=== PATIENT | male | born 1980 | race American Indian/Alaskan Native ===

== ENCOUNTER → 2016-07-10 | Outpatient (CLI) | payer OTHER ==
[~2016-07-10] MED LIST: CITA20TA9 PO; IBUP-1449 PO; PRED20TA PO
[2016-07-14 11:40] LABS: GLIADIN DEAMIDATED IgA AB 3 UNITS (<20); GLIADIN DEAMIDATED IgG AB 4 UNITS (<20); RETICULIN IgA AB Negative (Negative)
== END | disposition home or self-care (01) ==
LOC: C.LAB1850 10:40
PROVIDERS: ATTEND Internal Medicine
DX: R14.0 Abdominal distension (gaseous) (principal)

== ENCOUNTER 2016-07-31 19:35 | Emergency (ER) | payer OTHER ==
[~2016-07-31] VITALS: Ht 177.8 cm; Wt 87.3 kg
[~2016-07-31 19:35] MED LIST changes: -IBUP-1449 PO; -PRED20TA PO
[2016-07-31 19:46] VITALS: TEMP 36.8; Ht 177.8 cm; Wt 87.3 kg
[2016-07-31] MEDS ORDERED: DEXAMETHASONE SOD INJ 4 MG/ML VIAL IM ONE (20:15)
[2016-07-31] MEDS ORDERED: DEXAMETHASONE SOD INJ 10 MG/ML VIAL ONE (20:17)
[2016-07-31] MEDS ORDERED: IBUP-1449 PO (20:30)
[2016-07-31] MEDS ORDERED: PRED20TA PO (20:33)
--- NOTE | 2016-07-31 20:33 | EMERGENCY ROOM VISIT NOTE ---
ED Visit Note First contact with patient: 19:57 CHIEF COMPLAINT: Low back pain HISTORY OF PRESENT ILLNESS: This 35-year-old male patient presents to the emergency department ambulatory complaining of pain in the low back which began while at work today. The pain was gradual in onset, is now constant and worse with movement. The patient notes the pain as sharp and a 6/10. The patient has taken ibuprofen without relief of the pain. The patient denies any loss of control of their bowel or bladder functions. There has been no leg numbness or weakness, and no change in sensation. No nausea or vomiting or abdominal pain. No chest pain or shortness of breath. The patient has had previous episodes of similar pain. No dysuria or increased urinary frequency. The patient saw his chiropractor today, who felt that the patient likely had a "pinched nerve." REVIEW OF SYSTEMS: A review of systems was performed with positives and pertinent negatives listed in the history of present illness. All other systems were reviewed and are negative. ALLERGIES: No known drug allergies MEDICATIONS: Celexa PMH: No significant past medical history. SOCIAL HISTORY: The patient lives locally with his family. Nonsmoker. PHYSICAL EXAM: VITALS: Vitals are noted on the nurse's note and reviewed by myself. Vital signs stable. GENERAL: This is a 35-year-old male, in no acute distress, nondiaphoretic, well- developed well-nourished. SKIN: The skin was without rashes, erythema, edema, or bruising. Capillary refill less than 2 seconds. NECK: Supple without nuchal rigidity. No cervical spine tenderness. No paraspinous muscle tenderness. HEART: Regular rate and rhythm without murmurs gallops or rubs. LUNGS: Clear to auscultation bilaterally without wheezes, rales or rhonchi. ABDOMEN: Positive bowel sounds x 4. Normal tympanic percussion. Soft, nontender, without masses or organomegaly. Ndiaye sign negative. MUSCULOSKELETAL: No muscle atrophy, erythema, or edema noted of the back. There is no tenderness over the lumbar spinous processes. There is no tenderness over the paraspinous muscles. There is no tenderness over the thoracic spine or paraspinous muscles. There are no muscle spasms present. The patient is slow to move around with maximum tenderness with extension.. Negative straight leg raise test. NEURO: Patient was alert and oriented to person place and time. Normal sensation to light and sharp touch. Deep tendon reflexes 2+ in the lower extremities. Dorsalis pedis pulse 2+ bilaterally. Strength 5/5 and equal in the bilateral lower extremities. EMERGENCY DEPARTMENT COURSE: Patient was evaluated as above. He appears to have musculoskeletal back pain. There are no worrisome neurological findings to suggest cauda equina syndrome or cord compression. I did offer the patient outpatient treatment with pain medication and muscle relaxers, but he declined and states that he does not like to take medications. I did suggest a steroid and the patient was agreeable to this. He was given 10 mg Decadron IM as well as a prescriptive for prednisone. He will follow-up with his primary care provider for further evaluation of his back pain or verbal return for worsening symptoms. He verbalized understanding of my assessment and treatment plan and was discharged home in good condition. DIAGNOSIS: Lumbar strain Current/Historical Medications Scheduled Citalopram Hydrobromide (Celexa), 20 MG PO DAILY Allergies Coded Allergies: No Known Allergies (Unverified Adverse Reaction, Unknown, 08/02/04) Vital Signs Date Time Temp Pulse Resp B/P Pulse Ox O2 Delivery O2 Flow Rate FiO2 07/31/16 19:46 36.8 69 18 155/105 100 Room Air Medications Administered Medications (Trade) Dose Ordered Sig/Mil Route Start Time Stop Time Status Last Admin Dose Admin Dexamethasone Sodium Phosphate (Decadron Inj) 10 mg STK-MED ONCE .ROUTE 07/31/16 20:17 07/31/16 20:19 DC 07/31/16 20:21 10 MG Departure Information Impression Primary Impression: Strain of lumbar region Dispostion Home / Self-Care Condition GOOD Prescriptions Prednisone (Prednisone) 20 Mg Tab 0 PO DAILY, #18 TAB 3 DAILY FOR 3 DAYS, THEN 2 DAILY FOR 3 DAYS, THEN 1 DAILY FOR 3 DAYS. Prov: Sylwia Zamarripa .MARYELLEN 07/31/16 Referrals Pro,Tj aCrl M.D. (PCP) Patient Instructions [facility] Additional Instructions You have been treated in the Emergency Department for Back Pain. You have been prescribed Prednisone. This is a steroid which will help decrease your inflammation. It is best to take steroids early in the morning as PM dosing can affect your sleeping patterns. For pain control, you can use the following [id number] medicines (if >12 yo): - Regular strength (325mg/tab) Tylenol (acetaminophen) 2 tabs every 4-6 hours as needed. Do not exceed 12 tablets in a 24 hour period. Avoid taking more than 4 grams (4000 mg) of Tylenol per day. This includes any other sources of acetaminophen you may take on a regular basis. - Regular strength (200 mg/tab) Advil (ibuprofen) 1-2 tabs every 4-6 hours as needed. Do not exceed a dose of 3200 mg per day. If this is an acute injury, ice can be applied to the area of pain for the first 3 days to help decrease pain and inflammation. After the first 3 days, a heating pad can be used over the area for continued soothing relief. You should schedule a follow-up appointment in 2-3 days with your Primary Care Provider for further evaluation and treatment of your back pain. Return to the Emergency Department if your current symptoms worsen despite treatment course outlined above, or if you develop any of the following symptoms : intractable pain despite aforementioned treatment course, loss of control of your bowel or bladder, numbness or tingling in your groin, or development of a fever. Problem Qualifiers Primary Impression: Strain of lumbar region Encounter type: initial encounter Qualified Codes: S39.012A - Strain of muscle, fascia and tendon of lower back, initial encounter
[2016-07-31 20:46] VITALS: BP 129/78; PULSE 66; O2SAT 99
== END 2016-07-31 20:49 | disposition home or self-care (01) ==
LOC: C.EDB 19:36 → C.EDD 20:49
DX: S39.012A Strain of muscle, fascia and tendon of lower back, initial encounter (principal); X58.XXXA Exposure to other specified factors, initial encounter; Y92.89 Other specified places as the place of occurrence of the external cause; Y99.0 Civilian activity done for income or pay; Z79.899 Other long term (current) drug therapy

== ENCOUNTER → 2016-12-25 | Outpatient (CLI) | payer OTHER ==
[~2016-12-25] MED LIST changes: -CITA20TA9 PO; +IBUP-1449 PO; +PRED20TA PO
[2016-12-25 15:17] LABS: ESTIMATED AVERAGE GLUCOSE 114 mg/dl; HA1C FLAG Normal (Normal)
[2016-12-25 15:25] LABS: BLOOD UREA NITROGEN 11 mg/dl (7-18); BUN/CREATININE RATIO 9.8 (10-20); CALCIUM 9.5 mg/dl (8.5-10.1); CARBON DIOXIDE 28 mmol/L (21-32); CHLORIDE 106 mmol/L (98-107); CHOLESTEROL 191 mg/dl (0-200); GLUCOSE 100 mg/dl (70-99); SODIUM 140 mmol/L (136-145); URINE APPEARANCE CLEAR (CLEAR); URINE BILIRUBIN NEG (NEG); URINE COLOR YELLOW; URINE EPITHELIAL CELL AUTO 0-5 /lpf (0-5); URINE NITRITE NEG (NEG); URINE PH 6.5 (4.5-7.5); URINE SPECIFIC GRAVITY 1.019 (1.000-1.030); UROBILINOGEN NEG (NEG)
[2016-12-25 15:26] LABS: CHOLESTEROL/HDL RATIO 4.1; HDL CHOLESTEROL 47 mg/dl; LDL CHOLESTEROL CALCULATED 127 mg/dl; TRIGLYCERIDES 86 mg/dl (0-150); VERY LOW DENSITY LIPOPROT CALC 17 mg/dl
[2016-12-25 15:32] LABS: MANUAL MICROSCOPIC REQUIRED? NO; REVIEW REQ? NO
== END | disposition home or self-care (01) ==
LOC: C.LABBC 09:23
PROVIDERS: ATTEND Internal Medicine
DX: Z13.220 Encounter for screening for lipoid disorders (principal); R35.0 Frequency of micturition

== ENCOUNTER 2017-09-04 13:30 | Emergency (ER) | payer OTHER ==
[~2017-09-04] VITALS: Ht 175.3 cm; Wt 82.6 kg
[~2017-09-04 13:30] MED LIST changes: -PRED20TA PO
[2017-09-04 13:34] VITALS: TEMP 36.8; Ht 175.3 cm; Wt 82.6 kg
[2017-09-04] MEDS ORDERED: XYLOCAINE 1%/SOD BICARB 20 ML VIAL INFIL ONE ×2 (13:59→14:00)
[2017-09-04] MEDS ORDERED: DIPHTHERIA/TETANUS/PERTUSSIS 0.5 ML SYR/VIAL IM. ONE (14:00)
[2017-09-04 14:27] VITALS: BP 120/100; PULSE 75; O2SAT 98
--- NOTE | 2017-09-04 14:30 | EMERGENCY ROOM VISIT NOTE ---
ED Visit Note First contact with patient: 13:52 CHIEF COMPLAINT: Hand laceration HISTORY OF PRESENT ILLNESS: This 37-year-old male patient presents to the emergency department 45 minutes after cutting the right hand on a lid from a can. The bleeding has not stopped. Denies weakness or numbness of the hand or fingers. The patient rates the pain as minimal and 2/10. The patient denies any other injuries. The patient's Tetanus shot is not up to date. REVIEW OF SYSTEMS: A 6 system review of systems was completed with positives and pertinent negatives listed in the HPI. ALLERGIES: No known drug allergies MEDICATIONS: None PMH: Otherwise healthy SOCIAL HISTORY: Denies tobacco use, occasional EtOH PHYSICAL EXAM: Vital Signs: Reviewed Nurse's notes, vital signs stable. GENERAL : 37-year-old male, in no acute distress, well-developed, well-nourished. SKIN : There is a 2 cm long laceration on the palmar aspect of the right hand. The edges gape apart with traction. There is no foreign material in the wound and it looks clean. There is bleeding. No deep structures such as tendons, bones, or significant blood vessels are seen in the base of the wound. Normal strength and movement of the fingers and wrist. Capillary refill less than 2 seconds. Normal sensation to light and sharp touch. EMERGENCY DEPARTMENT COURSE: I examined the patient. Verbal consent was obtained to perform the procedure. Using sterile technique the wound was cleansed with Betadine. The area was sterilely draped. 3 ml of 1% buffered lidocaine was used to anesthetize the laceration on the hand. Once the patient was anesthetized, the wound was copiously irrigated under pressure with sterile saline. The wound was explored and was as described above. The laceration was repaired using 3 simple interrupted 5-0 nylon sutures with the wound edges being well approximated. The patient tolerated the procedure well. Hemostasis was achieved. The area was cleaned with sterile saline and dressed with bacitracin ointment and bandage. The patient was given Td immunization. The patient was discharged home in good condition. DIAGNOSIS: Hand laceration DISCHARGE INSTRUCTIONS & TREATMENT: Keep wound clean. It is okay to gently wash the area with soapy water. Do not submerse it in water for long periods of time such as swimming, going in hot tubs or taking baths until the sutures come out. Do not allow any crusting or dried blood to accumulate on sutures. If this occurs, use a 1:1 solution of hydrogen peroxide/water on a Q-tip to clean the wound. Use an antibiotic ointment for 3-4 days, then let wound dry. Suture removal in 14 days. Return sooner for any signs of infection (increasing redness, swelling, drainage). Ice and elevate for swelling and pain. Ibuprofen 600 mg and Tylenol 1000 mg every 6 hrs for pain. This chart was completed in part utilizing [employer] Speech Voice Recognition software. Attempts were made to minimize the grammatical errors, random word insertions, pronoun errors and incomplete sentences. Any formal questions or concerns about the content, text or information contained within the body of this dictation should be directly addressed to the provider for clarification.
== END 2017-09-04 14:32 | disposition home or self-care (01) ==
LOC: C.EDB 13:32 → C.EDD 14:32
DX: S61.411A Laceration without foreign body of right hand, initial encounter (principal); W45.8XXA Other foreign body or object entering through skin, initial encounter; F12.90 Cannabis use, unspecified, uncomplicated; Z23 Encounter for immunization

== ENCOUNTER 2024-10-21 11:17 | Inpatient (IN) ==
--- NOTE | 2024-10-21 11:39 | Emergency Department Note ---
Impression & Plan Abdominal pain, Leukocytosis, Post-operative infection ED Provider Note NAME: BING MATOS AGE: 44 SEX: M : 1980 ARRIVES VIA: Walk-In INFORMANT: Patient ED PROVIDER(S): Sánchez Granger DO CHIEF COMPLAINT: Abdominal pain HPI: Patient is a 44-year-old male who was recently admitted last Sunday to [facility] and found to have a perforated appendectomy. He was discharged this weekend. He notes he is still having pain in that right lower quadrant. He has had persistent diarrhea about 10-12 times a day. Denies any dysuria, urgency or frequency. Still has a drain in place which has been unchanged in drainage or discharge. Not on antibiotics. No cough or congestion. No other exacerbating or remitting factors. He notes this is nearly the same pain that he had when he came in for his appendix. He notes that the pain does feel a cramping pain that comes and goes. He believes it feels like it has to go the bathroom but he is having diarrhea. ADDITIONAL HISTORY OBTAINED: Per HPI Chronic Medical/Social Conditions Affecting Care: Per HPI PAST MEDICAL HISTORY:See Below PAST SURGICAL HISTORY:See Below FAMILY HISTORY:See Below SOCIAL HISTORY:See Below HOME MEDICATIONS:See Below ALLERGIES:See Below VITALS:See Below PHYSICAL EXAMINATION: GENERAL: Sitting up in bed, alert, well appearing, well nourished, no distress, non-toxic EYE EXAM: normal conjunctiva OROPHARYNX: no exudate, no erythema, lips, buccal mucosa, and tongue normal and mucous membranes are moist NECK: supple, no nuchal rigidity, no adenopathy, non-tender LUNGS: Clear to auscultation. Normal chest wall mechanics HEART: no murmurs, S1 normal and S2 normal ABDOMEN: abdomen soft, non-tender, normo-active bowel sounds, no masses, no rebound or guarding. Incision ports are clean and dry. OLVIN drain in the right lower quadrant. Serous drainage present in the tube. UPPER EXTREMITIES: upper extremities are grossly normal. LOWER EXTREMITIES: No pitting edema. NEURO EXAM: Normal sensorium, cranial nerves II-XII grossly intact, normal speech, no gross weakness of arms, no gross weakness of legs. MEDICAL DECISION MAKING: Patient is a 44-year-old male with recent ruptured/gangrenous appendicitis in [place] who had a drain placed and was discharged. Comes back in for worsening pain in his lower pelvis. He denies any fevers. IV was established and blood work was obtained. Decreased drainage from OLVIN drain. Labs show leukocytosis of 13,000. No significant anemia. BMP along with LFTs bilirubin was unremarkable. Lipase was normal. UA was clean. Patient was given IV fluids, IV Zofran and IV Zosyn. Discussed case with general surgery and they evaluated the patient admitted him for further workup following a CTA which showed the start of possible abscesses. Consults/Care Managements Discussions: Per [facility] Triage Nursing notes reviewed. Limited review of prior medical records performed Vital Signs: reviewed and remarkable for no significant abnormalities Differential diagnosis: Differential diagnoses includes but is not limited to gastritis, peptic ulcer disease, GERD, gallbladder disease, pancreatitis, small bowel obstruction, appendicitis, diverticulitis, hernia, urinary tract infection, torsion, perforation, trauma, infectious. ER treatment provided: See below Diagnostics interpreted by me include EKG and cardiac monitoring as listed below: -Cardiac Monitoring: An order was placed for continuous cardiac monitoring. The monitor shows a rate of 80 with sinus rhythm. -ECG: none -Laboratory studies:Interpreted by me as stated above in MDM and shown below. Imaging studies: Xrays: As interpreted by me: None CTs show: CT abdomen pelvis per my preliminary interpretation showed drain in right lower quadrant CT abdomen pelvis per radiology as described above Procedures: None Critical Care: None Past Med/Surg History Problem List (Updated 10/21/24 @ 17:18 by Sánchez Granger DO) Post-operative infection (Acute) Leukocytosis (Acute) Abdominal pain (Acute) Fatigue Bunion of great toe of left foot COVID-19 Medical History Prediabetes Hyperlipidemia Depression Surgical History History of wisdom tooth extraction No history of previous surgery Family History Family/Other Diabetes Denies family history of Ovarian cancer Prostate cancer Myocardial infarction Breast cancer Colorectal cancer Social History Smoking Status: Former smoker Do You Dip or Chew Tobacco: Yes; Hx Alcohol Use: Yes Hx Substance Use: No Preferred Language: Kazakh Communication Ability: Effective Visual Impairment: No Limitations Hearing Ability: Normal marital status: Current Living Situation: Family current occupational status: employed Feels Safe at Home: Yes Dental Care, Regularly: Yes Physical Activity Frequency: Daily Seatbelt Use: always Sunscreen Use: No Allergies Allergies Allergy/AdvReac Type Severity Reaction Status Date / Time No Known Allergies Allergy Unknown Unverified 10/21/24 15:30 Home Meds Home Medications Medication Instructions Recorded Confirmed diclofenac sodium 1 % topical gel 4 g topical QID PRN Pain 11/07/23 10/21/24 (Voltaren Arthritis Pain) cholecalciferol (vitamin D3) 25 25 mcg PO DAILY 10/21/24 10/21/24 mcg (1,000 unit) tablet (Vitamin D3) cinnamon bark 500 mg capsule 500 mg PO DAILY 10/21/24 10/21/24 (Cinnamon) escitalopram oxalate 10 mg tablet 10 mg PO DAILY 10/21/24 10/21/24 omega 5-ept-rzb-fish oil 900 1 cap PO DAILY 10/21/24 10/21/24 mg-1,400 mg capsule,delayed release vitamin E 268 mg (400 unit) capsule 268 mg PO DAILY 10/21/24 10/21/24 Results & Data (ED) Vital Signs Vital Signs - 24 hr 10/21/24 11:21 10/21/24 11:49 10/21/24 11:57 Temperature 36.9 C Temperature Source Temporal Artery Scan Pulse Rate 80 73 Pulse Rate [Apical] Pulse Rate from SpO2 Sensor Respiratory Rate 18 Respiratory Effort / Characteristics Non-Labored Spontaneous Respiratory Depth Normal Respiratory Pattern Regular Blood Pressure 128/84 Blood Pressure [Right Arm] Blood Pressure Mean 98 Blood Pressure Mean [Right Arm] Blood Pressure Position Sitting Pulse Oximetry 96 95 Oxygen Delivery Method Room Air Room Air Sepsis Recent Fever Within 48 Hours Yes Sepsis New/Unexplained Change in Mental Status No Sepsis Action Taken by Nursing No Action Required 10/21/24 12:21 10/21/24 12:50 10/21/24 12:51 Temperature Temperature Source Pulse Rate 75 66 Pulse Rate [Apical] Pulse Rate from SpO2 Sensor 76 65 Respiratory Rate 17 19 Respiratory Effort / Characteristics Respiratory Depth Respiratory Pattern Blood Pressure 133/85 Blood Pressure [Right Arm] Blood Pressure Mean 102 Blood Pressure Mean [Right Arm] Blood Pressure Position Pulse Oximetry 96 96 Oxygen Delivery Method Sepsis Recent Fever Within 48 Hours Sepsis New/Unexplained Change in Mental Status Sepsis Action Taken by Nursing 10/21/24 12:57 10/21/24 13:00 10/21/24 13:03 Temperature Temperature Source Pulse Rate 68 69 Pulse Rate [Apical] Pulse Rate from SpO2 Sensor 68 69 Respiratory Rate 18 19 Respiratory Effort / Characteristics Respiratory Depth Respiratory Pattern Blood Pressure 123/90 Blood Pressure [Right Arm] Blood Pressure Mean 94 Blood Pressure Mean [Right Arm] Blood Pressure Position Pulse Oximetry 98 99 Oxygen Delivery Method Sepsis Recent Fever Within 48 Hours Sepsis New/Unexplained Change in Mental Status Sepsis Action Taken by Nursing 10/21/24 13:21 10/21/24 13:30 10/21/24 13:36 Temperature Temperature Source Pulse Rate 66 67 Pulse Rate [Apical] Pulse Rate from SpO2 Sensor 66 66 Respiratory Rate 19 18 Respiratory Effort / Characteristics Respiratory Depth Respiratory Pattern Blood Pressure 129/90 Blood Pressure [Right Arm] Blood Pressure Mean 103 Blood Pressure Mean [Right Arm] Blood Pressure Position Pulse Oximetry 98 97 Oxygen Delivery Method Sepsis Recent Fever Within 48 Hours Sepsis New/Unexplained Change in Mental Status Sepsis Action Taken by Nursing 10/21/24 15:00 Temperature Temperature Source Pulse Rate Pulse Rate [Apical] 74 Pulse Rate from SpO2 Sensor Respiratory Rate 16 Respiratory Effort / Characteristics Non-Labored Spontaneous Respiratory Depth Respiratory Pattern Blood Pressure Blood Pressure [Right Arm] 133/84 Blood Pressure Mean Blood Pressure Mean [Right Arm] 100 Blood Pressure Position Pulse Oximetry 97 Oxygen Delivery Method Room Air Sepsis Recent Fever Within 48 Hours Sepsis New/Unexplained Change in Mental Status Sepsis Action Taken by Nursing Laboratory Data 10/21/24 11:33 10/21/24 11:33 Lab Results 10/21/24 10/21/24 Range/Units 11:32 11:33 WBC 13.76 H (4.8-10.8) K/ul RBC 4.42 L (4.70-6.10) M/uL Hgb 13.4 L (14.0-18.0) g/dl Hct 39.3 L (42.0-52.0) % MCV 88.9 (80.0-100.0) fL MCH 30.3 (25.0-34.0) pg MCHC 34.1 (32.0-36.0) g/dL RDW Std Deviation 41.5 (36.4-46.3) fL RDW Coeff of [place] 12.7 (11.5-14.5) % Plt Count 433 H (130-400) K/uL MPV 9.5 (9.4-12.4) fL Neutrophils % (Manual) 58 % Lymphocytes % (Manual) 20 % Monocytes % (Manual) 14 % Eosinophils % (Manual) 1 % Metamyelocytes % (Man) 3 % Myelocytes % (Man) 4 % Neutrophils # (Manual) 7.98 H (1.40-6.50) K/uL Total Absolute Neuts 7.98 H (1.4-6.5) K/uL Lymphocytes # (Manual) 2.75 (1.2-3.4) K/uL Total Abs Lymphocytes 2.75 (1.2-3.4) K/uL Monocytes # (Manual) 1.93 H (0.11-0.59) K/uL Eosinophils # (Manual) 0.14 (0-0.50) K/uL Metamyelocytes # (Man) 0.41 H (0-0) K/uL Myelocytes # (Manual) 0.55 H (0-0) K/uL RBC Morphology Unremarkable Sodium 138 (136-145) mmol/L Potassium 3.9 (3.5-5.1) mmol/L Chloride 105 (98-107) mmol/L Carbon Dioxide 29 (21-32) mmol/L Anion Gap 4 (3-11) BUN 9 (6-23) mg/dl Creatinine 1.00 (0.6-1.4) mg/dl Est Cr Clr Drug Dosing 92.3 ml/min eGFR 94.00 BUN/Creatinine Ratio 9.0 L (10-20) Glucose 91 (70-99(Fasting)) mg/dl Calcium 9.4 (8.6-10.3) mg/dl Total Bilirubin 0.4 (0.2-1.0) mg/dl AST 26 (13-39) U/L ALT 57 H (7-52) U/L Alkaline Phosphatase 117 H (34-104) U/L Total Protein 7.3 (6.0-8.3) gm/dl Albumin 3.7 (3.4-5.0) gm/dl Globulin 3.6 (2.5-4.0) gm/dl Albumin/Globulin Ratio 1.0 (0.9-2) Lipase 26 (11-82) U/L Urine Color Yellow Urine Appearance Clear (Clear) Urine pH 7.0 (4.5-7.5) Ur Specific [place] 1.013 (1.000-1.030) Urine Protein Negative (Negative) Urine Glucose (UA) Negative (Negative) Urine Ketones Negative (Negative) Urine Blood Trace H (Negative) Urine Nitrite Negative (Negative) Urine Bilirubin Negative (Negative) Urine Urobilinogen Negative (Negative) Ur Leukocyte Esterase Negative (Negative) Urine WBC (Auto) 0-5 (0-5) /hpf Urine RBC (Auto) 3-5 H (0-2) /hpf U Hyaline Cast (Auto) 0-2 (0-2) /lpf U Epithel Cells (Auto) 0-2 (0-2) /hpf Urine Bacteria (Auto) None Seen (None Seen) Administered Medications Discontinued Medications Sodium Chloride (Nss) 1,000 mls @ 999 mls/hr IV .Q1H1M ONE Stop: 10/21/24 12:36 Last Admin: 10/21/24 11:52 Dose: 999 mls/hr Documented By: KODI Piperacillin Sod/Tazobactam Sod (Zosyn) 4.5 gm in 100 mls @ 200 mls/hr IV NOW ONE; Protocol Stop: 10/21/24 13:55 Last Admin: 10/21/24 14:11 Dose: 200 mls/hr Documented By: KODI Ioversol (Optiray 320 100ml) 93 ml IV ONCE ONE Stop: 10/21/24 12:45 Last Admin: 10/21/24 12:45 Dose: 93 ml Documented By: DESTINEY Ondansetron HCl (Ondansetron Inj 2 Mg/Ml 2 Ml Vial) 4 mg IV NOW STA Stop: 10/21/24 11:37 Last Admin: 10/21/24 11:52 Dose: Not Given Documented By: KODI Imaging Data Radiologist's Impression: Abdomen/Pelvis CT 10/21/24 11:[address] WITH IV CONTRAST CT DOSE: 1076.68 mGy.cm HISTORY: rlq abd ain s/p appy TECHNIQUE: Multiaxial CT images of the abdomen and pelvis were performed following the IV administration of 90 cc of Optiray, A dose lowering technique was utilized adhering to the principles of ALARA. COMPARISON STUDY: None FINDINGS: There is mild atelectasis in the lung bases. No pleural effusion. ABDOMEN: Liver, gallbladder, spleen, pancreas, and adrenal glands are unremarkable. Kidneys show no hydronephrosis. No abdominal aortic aneurysm. Pelvis: There are surgical clips at the right lower quadrant consistent with given history of recent appendectomy. Postoperative drain from a right lower quadrant approach is present with the distal tip and the low pelvis. There is inflammation at the right lower quadrant and low pelvis. There is a small amount of fluid in the right lower quadrant adjacent to the proximal aspect of the brain measuring 3 cm in greatest axial dimension series 3 image 185. There is a small amount of fluid in the low pelvis anterior to the rectosigmoid junction measuring 4 cm image 292. There is trace scattered free fluid within the pelvis. There is inflammation of the urinary bladder, reactive versus cystitis. There is mild diffuse wall thickening at the colon most prominent at the cecum consistent with colitis. No free air seen. No bowel obstruction. Osseous structures: There are pars defects at L5-S1 with grade 1 anterolisthesis. No acute osseous findings. IMPRESSION: 1. Inflammation throughout the pelvis and right lower quadrant, postoperative versus infection. 2. Trace scattered free fluid and small fluid collections at the right lower quadrant and low pelvis without thickened ramires. These could represent postoperative fluid versus early abscess formation. 3. Reactive inflammation versus colitis/cystitis. ACT 112: Negative or not required by law. The above report was generated using voice recognition software. It may contain grammatical, syntax or spelling errors. Electronically signed by: Isaac Harrington M.D. 10/21/2024 1:05 PM Discharge Plan Visit Data Chief Complaint: Pain (Generalized) Stated Complaint: POST SURGERY PAIN ED Provider: Sánchez Granger Discharge Problem: Abdominal pain, Leukocytosis, Post-operative infection Patient Disposition: Admitted As Inpatient Condition: Fair Discharge Instructions Interventions: ED Discharge Assessment Last Done: 10/21/24 17:17 Forms Stand Alone Forms: [employer] Prescriptions Prescriptions: No Action diclofenac sodium [Voltaren Arthritis Pain] 1 % gel 4 g topical QID PRN (Reason: Pain) Rx Instructions: apply to single knee, ankle, foot; for foot includes sole/toes/top of foot vitamin E 268 mg (400 unit) Capsule 268 mg PO DAILY [place] 3 Fish Oil 900-1,400 mg Capsule,Delayed Release(Dr/Ec) 1 cap PO DAILY cinnamon bark [Cinnamon] 500 mg Capsule 500 mg PO DAILY escitalopram oxalate 10 mg tablet 10 mg PO DAILY Rx Instructions: TAKE 1 TABLET BY MOUTH EVERY DAY cholecalciferol (vitamin D3) [Vitamin D3] 25 mcg (1,000 unit) Tablet 25 mcg PO DAILY Referrals Referrals: Tj Gibson MD [Primary Care Provider] - Discharge Problem: Abdominal pain Qualifiers: Abdominal location: unspecified location Qualified Code(s): R10.9 - Unspecified abdominal pain Leukocytosis Qualifiers: Leukocytosis type: unspecified Qualified Code(s): D72.829 - Elevated white blood cell count, unspecified Post-operative infection Qualifiers: Encounter type: initial encounter Postoperative infection type: unspecified type Qualified Code(s): T81.40XA - Infection following a procedure, unspecified, initial encounter
[2024-10-21] MEDS: ONDANSETRON INJ 2 MG/ML 2 ML VIAL IV STA (11:52)
[2024-10-21] MEDS: SODIUM CHLORIDE 0.9% 1,000 ML IV ONE (11:52)
[2024-10-21 11:57] LABS: Hematocrit (blood only) 39.3 % (42.0-52.0); Hemoglobin 13.4 g/dl (14.0-18.0); Mean Corpuscular Hemoglobin 30.3 pg (25.0-34.0); Mean Corpuscular Hgb Conc 34.1 g/dL (32.0-36.0); Mean Corpuscular Volume 88.9 fL (80.0-100.0); Mean Platelet Volume 9.5 fL (9.4-12.4); Platelet Count 433 K/uL (130-400); RDW Coefficient of Variation 12.7 % (11.5-14.5); RDW Standard Deviation 41.5 fL (36.4-46.3); Red Blood Count 4.42 M/uL (4.70-6.10); White Blood Count 13.76 K/ul (4.8-10.8)
[2024-10-21 12:04] LABS: Appearance Urine Clear (Clear); Bacteria Urine Automated None Seen (None Seen); Bilirubin Urine Negative (Negative); Blood Urine Trace (Negative); Cast Urine Automated 0-2 /lpf (0-2); Color Urine Yellow; Epithelial Cell Urine Auto 0-2 /hpf (0-2); Glucose Urine UA Negative (Negative); Ketones Urine Negative (Negative); Leukocyte Esterase Urine Negative (Negative); Nitrite Urine Negative (Negative); Protein Urine Negative (Negative); Specific Gravity Urine 1.013 (1.000-1.030); Urobilinogen Urine Negative (Negative); WBC Urine Automated 0-5 /hpf (0-5)
[2024-10-21 12:20] LABS: ALC (manual) 2.75 K/uL (1.2-3.4); ANC (manual) 7.98 K/uL (1.4-6.5); Eosinophils # (manual) 0.14 K/uL (0-0.50); Eosinophils % (manual) 1 %; Lymphocytes # (manual) 2.75 K/uL (1.2-3.4); Lymphocytes % (manual) 20 %; Metamyelocytes # (manual) 0.41 K/uL (0-0); Metamyelocytes % (manual) 3 %; Monocytes # (manual) 1.93 K/uL (0.11-0.59); Monocytes % (manual) 14 %; Myelocytes # (manual) 0.55 K/uL (0-0); Myelocytes % (manual) 4 %; Neutrophils # (manual) 7.98 K/uL (1.40-6.50); Neutrophils % (manual) 58 %; RBC Morphology Unremarkable
[2024-10-21 12:23] LABS: Albumin Level 3.7 gm/dl (3.4-5.0); Bilirubin,Total 0.4 mg/dl (0.2-1.0); Calcium 9.4 mg/dl (8.6-10.3); Creatinine Clr Calc Pharmacy 92.3 ml/min; Globulin 3.6 gm/dl (2.5-4.0); Potassium 3.9 mmol/L (3.5-5.1); Total Protein 7.3 gm/dl (6.0-8.3)
[2024-10-21] MEDS: OPTIRAY 320 100ml IV ONE (12:45)
--- NOTE | 2024-10-21 13:07 | CT Scan Report ---
ABDOMEN AND PELVIS CT WITH IV CONTRAST CT DOSE: 1076.68 mGy.cm HISTORY: rlq abd ain s/p appy TECHNIQUE: Multiaxial CT images of the abdomen and pelvis were performed following the IV administrat ion of 90 cc of Optiray, A dose lowering technique was utilized adhering to the principles of ALARA. COMPARISON STUDY: None FINDINGS: There is mild atelectasis in the lung bases. No pleural effusion. ABDOMEN: Liver, gallbladder, spleen, pancreas, and adrenal glands are unremarkable. Kidneys show no h ydronephrosis. No abdominal aortic aneurysm. Pelvis: There are surgical clips at the right lower quadrant consistent with given history of recent appendectomy. Postoperative drain from a right lower quadrant approach is present with the distal tip and the low pelvis. There is inflammation at the right lower quadrant and low pelvis. There is a sma ll amount of fluid in the right lower quadrant adjacent to the proximal aspect of the brain measuring 3 cm in greatest axial dimension series 3 image 185. There is a small amount of fluid in the low pel vis anterior to the rectosigmoid junction measuring 4 cm image 292. There is trace scattered free flu id within the pelvis. There is inflammation of the urinary bladder, reactive versus cystitis. There i s mild diffuse wall thickening at the colon most prominent at the cecum consistent with colitis. No f ree air seen. No bowel obstruction. Osseous structures: There are pars defects at L5-S1 with grade 1 anterolisthesis. No acute osseous fi ndings. IMPRESSION: 1. Inflammation throughout the pelvis and right lower quadrant, postoperative versus infection. 2. Trace scattered free fluid and small fluid collections at the right lower quadrant and low pelvis without thickened ramires. These could represent postoperative fluid versus early abscess formation. 3. Reactive inflammation versus colitis/cystitis. ACT 112: Negative or not required by law. The above report was generated using voice recognition software. It may contain grammatical, syntax o r spelling errors. Electronically signed by: Isaac Harrington M.D. 10/21/2024 1:05 PM
[2024-10-21] MEDS: PIPERACILLIN/TAZOBACTAM 4.5 GM/100 ML BAG IV ONE (14:11)
--- NOTE | 2024-10-21 15:29 | History & Physical Report ---
Date of Service October 21, 2024 Assessment & Plan (1) Post-operative infection: (2) Leukocytosis: (3) Abdominal pain: Plan: 44-year-old male who is currently 6 days status post laparoscopic appendectomy at [facility] for perforated appendicitis presented to emergency room with intermittent lower abdominal pain and pressure with bowel movements and associated fevers and chills. CT scan of abdomen and pelvis showing significant amount of inflammation in the right lower quadrant and pelvis with colitis and small fluid collections in the right lower quadrant and pelvis concerning for postoperative fluid collections versus early abscess. Leuk ocytosis of 13k, afebrile here, odin drain serous output but minimal with thick fibrinous tissue in drain tubing. Abdominal exam soft, nondistended with tenderness in RLQ and suprapubic regions. Will plan to admit to hospital for IV antibiotics, bowel rest, pain management, antiemetics, IV fluids. Discussed with radiology, pelvic fluid collection no amenable to drainage, RLQ colleciton small and near the odin drain. Repeat am labs IV Zosyn NPO for bowel rest for now Discussed with Dr. bates who agrees with above. History of Present Illness Chief Complaint: Abdominal pain Primary Care Provider: Tj Gibson MD Peter is a 44-year-old male who recently underwent laparoscopic appendectomy on 10/15/24 at [facility] presented to the emergency department with continued lower abdominal pain with pressure along with associated fevers and chills. He was initially transferred from [facility] emergency room to [facility] and requested nonsurgical management of his acute appendicitis however he continued to have increasing pain, increasing leukocytosis and fever which prompted surgical intervention which he was found to have perforated appendicitis with phlegmon changes however no abscess intraoperatively. A ODIN drain was placed and he was kept in the hospital for IV antibiotics and discharged home on Sunday. He states that since he has been home he has have been having intermittent severe abdominal pain along with pressure with bowel movements and fevers and chills. There has been minimal drain output about 10 cc in a 24-hour period. He was not discharged on any pain medication or any oral antibiotics. He states he is he has been taking Tylenol for pain. Was able to have bowel movements no blood in the stools however he does have significant amount of pain and pressure prior to bowel movements. Allergies Allergy/AdvReac Type Severity Reaction Status Date / Time No Known Allergies Allergy Unknown Unverified 10/21/24 15:30 Home Medications Medication Instructions Recorded Confirmed Type diclofenac sodium 1 % topical gel 4 g topical QID PRN Pain 11/07/23 10/21/24 History (Voltaren Arthritis Pain) cholecalciferol (vitamin D3) 25 25 mcg PO DAILY 10/21/24 10/21/24 History mcg (1,000 unit) tablet (Vitamin D3) cinnamon bark 500 mg capsule 500 mg PO DAILY 10/21/24 10/21/24 History (Cinnamon) escitalopram oxalate 10 mg tablet 10 mg PO DAILY 10/21/24 10/21/24 History omega 5-wrj-qlh-fish oil 900 1 cap PO DAILY 10/21/24 10/21/24 History mg-1,400 mg capsule,delayed release vitamin E 268 mg (400 unit) capsule 268 mg PO DAILY 10/21/24 10/21/24 History Past Med/Surg History Problem List (Updated 10/21/24 @ 17:18 by Sánchez Granger DO) Post-operative infection (Acute) Leukocytosis (Acute) Abdominal pain (Acute) Fatigue Bunion of great toe of left foot COVID-19 Medical History Prediabetes Hyperlipidemia Depression Surgical History History of wisdom tooth extraction No history of previous surgery Family History Family/Other Diabetes Denies family history of Ovarian cancer Prostate cancer Myocardial infarction Breast cancer Colorectal cancer Social History Smoking Status: Former smoker Tobacco Type: Cigarettes Second Hand Exposure: No; Do You Dip or Chew Tobacco: No; Hx Alcohol Use: No Hx Substance Use: No Preferred Language: Lithuanian Communication Ability: Effective Visual Impairment: No Limitations Hearing Ability: Normal Food Editor Required: No Beliefs That Will Affect Care: None marital status: Current Living Situation: Spouse and Family current occupational status: employed Feels Safe at Home: Yes Dental Care, Regularly: Yes Physical Activity Frequency: Daily Seatbelt Use: always Sunscreen Use: No Assistive Devices: Contacts Review of Systems Review of Systems: All systems reviewed & are unremarkable except as noted in HPI & below Physical Exam Constitutional: WD/WN, vitals as above cooperative and comfortable; no acute distress and not ill appearing Respiratory: normal respiratory effort, lungs clear to auscultation Cardiovascular: RRR, no murmur, no edema Gastrointestinal (Abdomen): Inspection/Auscultation: abdomen normal to inspection, + abdominal surgical incision (c/d/i with eric) and + abdominal surgical drain present; abdomen not distended Percussion/Palpation: + abdomen tender (RLQ and suprapubic) and abdomen soft; no guarding, abdomen not rigid and abdomen not firm Skin: no rashes, warm and dry Psychiatric: A+Ox3, euthymic affect Results & Data Results & Data Vital Signs (Past 12 Hours) Vital Signs Temp Pulse Pulse Resp BP BP Pulse Ox 10/21/24 15:00 74 16 133/84 97 10/21/24 13:36 67 18 97 10/21/24 13:30 129/90 10/21/24 13:21 66 19 98 10/21/24 13:03 69 19 99 10/21/24 13:00 123/90 10/21/24 12:57 68 18 98 10/21/24 12:51 66 19 96 10/21/24 12:50 133/85 10/21/24 12:21 75 17 96 10/21/24 11:57 95 10/21/24 11:49 73 10/21/24 11:21 36.9 C 80 18 128/84 96 O2 Del Method 10/21/24 15:00 Room Air 10/21/24 13:36 10/21/24 13:30 10/21/24 13:21 10/21/24 13:03 10/21/24 13:00 10/21/24 12:57 10/21/24 12:51 10/21/24 12:50 10/21/24 12:21 10/21/24 11:57 Room Air 10/21/24 11:49 10/21/24 11:21 Room Air Laboratory Results 10/21/24 10/21/24 Range/Units 11:33 11:32 WBC 13.76 H (4.8-10.8) K/ul RBC 4.42 L (4.70-6.10) M/uL Hgb 13.4 L (14.0-18.0) g/dl Hct 39.3 L (42.0-52.0) % MCV 88.9 (80.0-100.0) fL MCH 30.3 (25.0-34.0) pg MCHC 34.1 (32.0-36.0) g/dL RDW Std Deviation 41.5 (36.4-46.3) fL RDW Coeff of Marshall 12.7 (11.5-14.5) % Plt Count 433 H (130-400) K/uL MPV 9.5 (9.4-12.4) fL Neutrophils % (Manual) 58 % Lymphocytes % (Manual) 20 % Monocytes % (Manual) 14 % Eosinophils % (Manual) 1 % Metamyelocytes % (Man) 3 % Myelocytes % (Man) 4 % Neutrophils # (Manual) 7.98 H (1.40-6.50) K/uL Total Absolute Neuts 7.98 H (1.4-6.5) K/uL Lymphocytes # (Manual) 2.75 (1.2-3.4) K/uL Total Abs Lymphocytes 2.75 (1.2-3.4) K/uL Monocytes # (Manual) 1.93 H (0.11-0.59) K/uL Eosinophils # (Manual) 0.14 (0-0.50) K/uL Metamyelocytes # (Man) 0.41 H (0-0) K/uL Myelocytes # (Manual) 0.55 H (0-0) K/uL RBC Morphology Unremarkable Sodium 138 (136-145) mmol/L Potassium 3.9 (3.5-5.1) mmol/L Chloride 105 (98-107) mmol/L Carbon Dioxide 29 (21-32) mmol/L Anion Gap 4 (3-11) BUN 9 (6-23) mg/dl Creatinine 1.00 (0.6-1.4) mg/dl Est Cr Clr Drug Dosing 92.3 ml/min eGFR 94.00 BUN/Creatinine Ratio 9.0 L (10-20) Glucose 91 (70-99(Fasting)) mg/dl Calcium 9.4 (8.6-10.3) mg/dl Total Bilirubin 0.4 (0.2-1.0) mg/dl AST 26 (13-39) U/L ALT 57 H (7-52) U/L Alkaline Phosphatase 117 H (34-104) U/L Total Protein 7.3 (6.0-8.3) gm/dl Albumin 3.7 (3.4-5.0) gm/dl Globulin 3.6 (2.5-4.0) gm/dl Albumin/Globulin Ratio 1.0 (0.9-2) Lipase 26 (11-82) U/L Urine Color Yellow Urine Appearance Clear (Clear) Urine pH 7.0 (4.5-7.5) Ur Specific Hunt 1.013 (1.000-1.030) Urine Protein Negative (Negative) Urine Glucose (UA) Negative (Negative) Urine Ketones Negative (Negative) Urine Blood Trace H (Negative) Urine Nitrite Negative (Negative) Urine Bilirubin Negative (Negative) Urine Urobilinogen Negative (Negative) Ur Leukocyte Esterase Negative (Negative) Urine WBC (Auto) 0-5 (0-5) /hpf Urine RBC (Auto) 3-5 H (0-2) /hpf U Hyaline Cast (Auto) 0-2 (0-2) /lpf U Epithel Cells (Auto) 0-2 (0-2) /hpf Urine Bacteria (Auto) None Seen (None Seen) Diagnostic Findings ABDOMEN AND PELVIS CT WITH IV CONTRAST CT DOSE: 1076.68 mGy.cm HISTORY: rlq abd ain s/p appy TECHNIQUE: Multiaxial CT images of the abdomen and pelvis were performed following the IV administration of 90 cc of Optiray, A dose lowering technique was utilized adhering to the principles of ALARA. COMPARISON STUDY: None FINDINGS: There is mild atelectasis in the lung bases. No pleural effusion. ABDOMEN: Liver, gallbladder, spleen, pancreas, and adrenal glands are unremarkable. Kidneys show no hydronephrosis. No abdominal aortic aneurysm. Pelvis: There are surgical clips at the right lower quadrant consistent with given history of recent appendectomy. Postoperative drain from a right lower quadrant approach is present with the distal tip and the low pelvis. There is inflammation at the right lower quadrant and low pelvis. There is a small amount of fluid in the right lower quadrant adjacent to the proximal aspect of the brain measuring 3 cm in greatest axial dimension series 3 image 185. There is a small amount of fluid in the low pelvis anterior to the rectosigmoid junction measuring 4 cm image 292. There is trace scattered free fluid within the pelvis. There is inflammation of the urinary bladder, reactive versus cystitis. There is mild diffuse wall thickening at the colon most prominent at the cecum consistent with colitis. No free air seen. No bowel obstruction. Osseous structures: There are pars defects at L5-S1 with grade 1 anterolisthesis. No acute osseous findings. IMPRESSION: 1. Inflammation throughout the pelvis and right lower quadrant, postoperative versus infection. 2. Trace scattered free fluid and small fluid collections at the right lower quadrant and low pelvis without thickened ramires. These could represent postoperative fluid versus early abscess formation. 3. Reactive inflammation versus colitis/cystitis. ACT 112: Negative or not required by law. The above report was generated using voice recognition software. It may contain grammatical, syntax or spelling errors. I personally reviewed CT scan images and reviewed with reading radiologist and concur with above findings Code Status & VTE Plan VTE Prophylaxis Plan VTE Prophylaxis will be ordered: Yes (1) Post-operative infection Encounter type: initial encounter Postoperative infection type: unspecified type Qualified Code(s): T81.40XA - Infection following a procedure, unspecified, initial encounter (2) Leukocytosis Leukocytosis type: unspecified Qualified Code(s): D72.829 - Elevated white blood cell count, unspecified (3) Abdominal pain Abdominal location: unspecified location Qualified Code(s): R10.9 - Unspecified abdominal pain
[2024-10-21] MEDS ORDERED: oxyCODONE/ACETAMINOPHEN 5mg/325mg TAB PO PRN ×2 (17:29)
[2024-10-21] MEDS ORDERED: PROMETHAZINE 12.5 MG/50.5 ML BAG IV PRN (17:29)
[2024-10-21] MEDS ORDERED: MoRPHine SULFATE 4 MG/ML 1 ML CARP\\VIAL IV PRN (17:29)
[2024-10-21] MEDS ORDERED: ONDANSETRON INJ 2 MG/ML 2 ML VIAL IV PRN (17:29)
[2024-10-21] MEDS ORDERED: MoRPHine SULFATE 2 MG/ML CARP IV PRN (17:29)
[2024-10-21] MEDS: SODIUM CHLORIDE 0.9% 1,000 ML IV SCH (18:05)
--- OUTSIDE RECORDS SUMMARY | 2024-10-21 18:54 | External Medical Summary ---
Author Name Unknown Address Unknown Organization K1F:[facility] - [address] [place] [address] Laboratory Report Ordering Provider Test Date Status JASMINE JAQUEZ 10/15/2024 07:48:00 Final Observation Date Value Abnormality Reference (Units ) Status BUN 10/15/2024 07:48:00 7 6-20 (mg/dL) Final Creatinine 10/15/2024 07:48:00 1.1 0.6-1.2 (mg/dL) Final Glomerular filtration rate/1.73 sq M.predicted [Volume Rate/Area] in Serum, Plasma or Blood by Creatinine-based formula (CKD-EPI) 10/15/2024 07:48:00 81 >=60 (mL/min) Final eGFR is calculated based on the CKD-EPI 2020 equation. Sodium 10/15/2024 07:48:00 140 135-146 (m mol/L) Final Potassium 10/15/2024 07:48:00 3.6 3.5-5.1 (m mol/L) Final Cl 10/15/2024 07:48:00 105 98-107 (mm ol/L) Final CO2 10/15/2024 07:48:00 23 22-32 (mmo l/L) Final Anion gap 10/15/2024 07:48:00 12 7-15 (mmol /L) Final Glucose 10/15/2024 07:48:00 117 70-120 (mg /dL) Final Albumin 10/15/2024 07:48:00 3.1 Below low normal 3.8 -5.0 (g/dL) Final AST (Aspartate aminotransferase) 10/15/2024 07:48:00 33 10-50 (U/L) Fin al Alk Phos 10/15/2024 07:48:00 52 35-130 (U/ L) Final Bilirubin, Total 10/15/2024 07:48:00 1.7 Above high no rmal <=1.2 (mg/dL) Final Calcium 10/15/2024 07:48:00 8.2 Below low normal 8.4 -10.2 (mg/dL) Final Protein 10/15/2024 07:48:00 5.4 Below low normal 6.0 -8.3 (g/dL) Final ALT (Alanine aminotransferase) 10/15/2024 07:48:00 33 10-50 (U/L) Aime villegas Performing Location LABORATORY [address] [place] [address]
--- OUTSIDE RECORDS SUMMARY | 2024-10-21 18:54 | External Medical Summary ---
Author Name Unknown Address Unknown Organization K1F:[facility] - [address] [place] [address] Laboratory Report Ordering Provider Test Date Status ADY PICKARD 10/18/2024 04:32:00 Final Observation Date Value Abnormality Reference (Units ) Status WBC, Total 10/18/2024 04:32:00 11.42 Above high normal 4.00-10.80 (K/uL) Final RBC 10/18/2024 04:32:00 3.91 4.50-5.25 (M/uL) Final Hemoglobin 10/18/2024 04:32:00 11.8 Below low normal 14.0-16.8 (g/dL) Final HCT 10/18/2024 04:32:00 36.3 Below low normal 40.0-48.4 (%) Final MCV 10/18/2024 04:32:00 92.8 82.0-99.5 (fL) Final MCH 10/18/2024 04:32:00 30.2 27.0-34.0 (pg) Final MCHC 10/18/2024 04:32:00 32.5 32.0-36.0 (g/dL) Final RDW 10/18/2024 04:32:00 13.2 11.5-15.5 (%) Final Platelets 10/18/2024 04:32:00 279 140-400 (K/uL) Final MPV 10/18/2024 04:32:00 9.7 6.6-11.1 (fL) Final Nucleated erythrocytes/100 leukocytes [Ratio] in Blood by Automated count 10/18/2024 04:32:00 0 <=0 (/100 WBCs) Final Performing Location [facility]ATORY [facility] - [address] [place] [address]
--- OUTSIDE RECORDS SUMMARY | 2024-10-21 18:54 | External Medical Summary ---
Author Name Unknown Address Unknown Organization K1F:[facility] - [address] [place] [address] Laboratory Report Ordering Provider Test Date Status ADY PICKARD 10/19/2024 04:31:00 Final Observation Date Value Abnormality Reference (Units ) Status BUN 10/19/2024 04:31:00 9 6-20 (mg/dL) Final Creatinine 10/19/2024 04:31:00 1.1 0.6-1.2 (mg/dL) Final Glomerular filtration rate/1.73 sq M.predicted [Volume Rate/Area] in Serum, Plasma or Blood by Creatinine-based formula (CKD-EPI) 10/19/2024 04:31:00 87 >=60 (mL/min) Final eGFR is calculated based on the CKD-EPI 2020 equation. Sodium 10/19/2024 04:31:00 139 135-146 (m mol/L) Final Potassium 10/19/2024 04:31:00 3.6 3.5-5.1 (m mol/L) Final Cl 10/19/2024 04:31:00 105 98-107 (mm ol/L) Final CO2 10/19/2024 04:31:00 25 22-32 (mmo l/L) Final Anion gap 10/19/2024 04:31:00 9 7-15 (mmol /L) Final Glucose 10/19/2024 04:31:00 108 70-120 (mg /dL) Final Calcium 10/19/2024 04:31:00 9.4 8.4-10.2 ( mg/dL) Final Performing Location [facility] - [address] [place] [address]
--- OUTSIDE RECORDS SUMMARY | 2024-10-21 18:54 | External Medical Summary ---
Author Name Unknown Address Unknown Organization K1F:[facility] - [address] [place] [address] Laboratory Report Ordering Provider Test Date Status ADY PICKARD 10/14/2024 05:30:00 Final Observation Date Value Abnormality Reference (Units ) Status WBC, Total 10/14/2024 05:30:00 15.16 Above high normal 4.00-10.80 (K/uL) Final RBC 10/14/2024 05:30:00 4.20 4.50-5.25 (M/uL) Final Hemoglobin 10/14/2024 05:30:00 13.0 Below low normal 14.0-16.8 (g/dL) Final HCT 10/14/2024 05:30:00 37.9 Below low normal 40.0-48.4 (%) Final MCV 10/14/2024 05:30:00 90.2 82.0-99.5 (fL) Final MCH 10/14/2024 05:30:00 31.0 27.0-34.0 (pg) Final MCHC 10/14/2024 05:30:00 34.3 32.0-36.0 (g/dL) Final RDW 10/14/2024 05:30:00 12.6 11.5-15.5 (%) Final Platelets 10/14/2024 05:30:00 218 140-400 (K/uL) Final MPV 10/14/2024 05:30:00 10.3 6.6-11.1 (fL) Final Nucleated erythrocytes/100 leukocytes [Ratio] in Blood by Automated count 10/14/2024 05:30:00 0 <=0 (/100 WBCs) Final Performing Location LAB[facility]ATORY [facility] - [address] [place] [address]
--- OUTSIDE RECORDS SUMMARY | 2024-10-21 18:54 | External Medical Summary ---
Author Name Unknown Address Unknown Organization K1F:[facility] - [address] [place] [address] Laboratory Report Ordering Provider Test Date Status ADY PICKARD 10/16/2024 04:38:00 Final Observation Date Value Abnormality Reference (Units ) Status BUN 10/16/2024 04:38:00 9 6-20 (mg/dL) Final Creatinine 10/16/2024 04:38:00 1.0 0.6-1.2 (mg/dL) Final Glomerular filtration rate/1.73 sq M.predicted [Volume Rate/Area] in Serum, Plasma or Blood by Creatinine-based formula (CKD-EPI) 10/16/2024 04:38:00 >90 >=60 (mL/min) Final eGFR is calculated based on the CKD-EPI 2020 equation. Sodium 10/16/2024 04:38:00 138 135-146 (m mol/L) Final Potassium 10/16/2024 04:38:00 4.1 3.5-5.1 (m mol/L) Final Cl 10/16/2024 04:38:00 103 98-107 (mm ol/L) Final CO2 10/16/2024 04:38:00 26 22-32 (mmo l/L) Final Anion gap 10/16/2024 04:38:00 9 7-15 (mmol /L) Final Glucose 10/16/2024 04:38:00 153 Above high normal 70 -120 (mg/dL) Final Calcium 10/16/2024 04:38:00 8.2 Below low normal 8.4 -10.2 (mg/dL) Final Performing Location [facility] - [address] [place] [address]
--- OUTSIDE RECORDS SUMMARY | 2024-10-21 18:54 | External Medical Summary ---
Author Name Unknown Address Unknown Organization K1F:[facility] - [address] [place] [address] Laboratory Report Ordering Provider Test Date Status ADY PICKARD 10/14/2024 05:30:00 Final Observation Date Value Abnormality Reference (Units ) Status BUN 10/14/2024 05:30:00 11 6-20 (mg/dL) Final Creatinine 10/14/2024 05:30:00 1.2 0.6-1.2 (mg/dL) Final Glomerular filtration rate/1.73 sq M.predicted [Volume Rate/Area] in Serum, Plasma or Blood by Creatinine-based formula (CKD-EPI) 10/14/2024 05:30:00 76 >=60 (mL/min) Final eGFR is calculated based on the CKD-EPI 2020 equation. Sodium 10/14/2024 05:30:00 137 135-146 (m mol/L) Final Potassium 10/14/2024 05:30:00 3.7 3.5-5.1 (m mol/L) Final Cl 10/14/2024 05:30:00 102 98-107 (mm ol/L) Final CO2 10/14/2024 05:30:00 22 22-32 (mmo l/L) Final Anion gap 10/14/2024 05:30:00 13 7-15 (mmol /L) Final Glucose 10/14/2024 05:30:00 117 70-120 (mg /dL) Final Calcium 10/14/2024 05:30:00 8.7 8.4-10.2 ( mg/dL) Final Performing Location [facility] - [address] [place] [address]
--- OUTSIDE RECORDS SUMMARY | 2024-10-21 18:54 | External Medical Summary | Summary of Care ---
Author Name Unknown Organization [facility] Address [address] [place] [address] Phone [phone] Care Team Providers Care Control Electrician Name Role Phone Tj Gibson MD Primary Care Provider [phone] Reason for Visit * Reason Comments Abdominal Pain * Auth/Cert Specialty Diagnoses / Procedures Referred By Daniel t Referred To Contact Diagnoses Acute appendicitis with localized peritonitis appendicitis Manas Goodwin MD [address] [address] Phone: tel: fax: 6B [facility] 6th Floor [address] [place] [address] Phone: tel: Referral ID Status Reason Start Date Expiration Date Visits Re quested Visits Authorized [id number] Encounter Details Date Type Department Care Team (Latest Contact Info) Description 10/13/2024 7:15 PM EDT - 10/19/2024 12:14 PM EDT Hospital Encounter 6B [facility] 6th Floor [address] [place] [address] Matt Duran, DO [address] [place] [address] Manas Goodwin MD [address] [id number] Pt Handout (on AVS) Discharge Disposition: Home - Self Care Allergies No known active allergiesdocumented as of this encounter (statuses as of 10/20/2024) Medications Escitalopram Oxalate 10 MG Oral Tablet (Lexapro) Take 1 Tablet by mouth in the morning. 05/06/20 21 Active Cyclobenzaprin e HCl 10 MG Oral Tablet (Flexeril)Chanelle cations:Muscle spasms of neck Take 1 Tablet by mouth at bedtime as needed for Muscle spasms. 8 Tablet 10/12/19 23 Active Fish Oil 300 MG Oral Capsule Take by mouth. Activ e Folic Acid 20 MG Oral Capsule Take by mouth. Activ e B Complex Vitamins Oral Capsule Take 1 Capsule by mouth in the morning. Active B-12 50 MCG Oral Tablet Take by mouth. Act saeed Vitamin D (Cholecalcifer ol) 25 MCG (1000 UT) Oral Tablet Take by mouth. Activ e Acetaminophen 500 MG Oral Tablet (Tylenol) Take 2 Tablets by mouth every 8 hours as needed for Pain, Moderate. 30 Tablet 10/20/19 25 Active Methocarbamol 750 MG Oral Tablet Take 1 Tablet by mouth 4 times a day as needed for Pain, Severe. 20 Tablet 10/20/19 25 Active methylPREDNISo lone 4 MG Oral Tablet Therapy Pack (Medrol Dosepack)Indic ations:Acute midline low back pain without sciatica follow package directions 21 Tablet 11/16/19 22 025 Discontinued documented as of this encounter (statuses as of 10/20/2024) Active Problems Problem Noted Date Diagnosed Date Acute appendicitis with perf oration and localized peritonitis, without abscess 10/13/2024 documented as of this encounter (statuses as of 10/20/2024) Social History Tobacco Use Types Packs/Day Years Used Date Smoking Tobacco: Former Cigarettes Smokeless Tobacco: Former Chew Tobacco Cessation:Counseling Given: Not Answered Alcohol Use Standard Drinks/Week Comments No 0 (1 standard drink = 0.6 oz pur e alcohol) Sex and Gender Information Value Date Recorded Sex Assigned at Not on file Legal Sex Male 1:07 PM EST Gender Identity Not on file Sexual Orientation Not on file documented as of this encounter Last Filed Vital Signs Vital Sign Reading Time Taken Comments Blood Pressure 135/85 10/19/2024 11:15 AM EDT Pulse 89 10/19/2024 11:15 AM EDT Temperature 37.5 °C (99.5 °F) 10/19/2024 11:15 AM E DT Respiratory Rate 16 10/19/2024 11:15 AM EDT Oxygen Saturation 98% 10/19/2024 11:15 AM EDT Inhaled Oxygen Concentration - - Weight 86.2 kg (190 lb) 10/15/2024 5:13 PM EDT Height 175.3 cm (5' 9.02") 10/15/2024 5:13 PM ED T Body Mass Index 28.05 10/15/2024 5:13 PM EDT documented in this encounter Functional Status * Are you deaf or do you have serious difficulty hearing? Answer Date of Assessment Author No 10/13/2024 9:16 PM EDT Sobia Dixon RN * Are you blind or do you have serious difficulty seeing, even when wearing glasses? Answer Date of Assessment Author No 10/13/2024 9:16 PM EDT Sobia Dixon RN * Do you have serious difficulty walking or climbing stairs? (5 years old or older) Answer Date of Assessment Author No 10/13/2024 9:16 PM EDT Sobia Dixon RN * Do you have difficulty dressing or bathing? (5 years old or older) Answer Date of Assessment Author No 10/13/2024 9:16 PM EDT Sobia Dixon RN * Because of a physical, mental, or emotional condition, do you have difficulty doing errands alone such as visiting a doctor’s office or shopping? (15 years old or older) Answer Date of Assessment Author No 10/13/2024 9:16 PM EDT Sobia Dixon RN documented as of this encounter Mental Status * Because of a physical, mental, or emotional condition, do you have serious difficulty concentrating, remembering, or making decisions? (5 years old or older) Answer Entry Date Author No 10/13/2024 9:16 PM EDT Sobia iDxon RN documented in this encounter Discharge Summaries * Michelle Young MD - 10/19/2024 10:44 AM EDT [address] [address] Admission Date: 10/13/2024 Discharge Date: 10/19/2024 DISCHARGE DIAGNOSES: Active Hospital Problems Diagnosis *Principal Diagnosis - Acute appendicitis with perforation and localized peritonitis, without abscess Resolved Hospital Problems No resolved problems to display. Other Significant Diagnoses: none CONDITION ON DISCHARGE: stable Cognition: normal DISPOSITION ON DISCHARGE: home FOLLOW-UP: Future Appointments This patient does not currently have any appointments scheduled. Appointments: follow up with Dr. Goodwin will be made within 2 weeks of discharge. Outpatient testing already scheduled: none Outpatient testing that needs to be arranged: none Inpatient test results pending: final pathology report MEDICATIONS ON DISCHARGE: MEDICATION UPDATES AT DISCHARGE START taking these medications INSTRUCTIONS Acetaminophen 500 MG Tablet Commonly known as: Tylenol Take 2 Tablets by mouth every 8 hours as needed for Pain, Moderate. Methocarbamol 750 MG Tablet Commonly known as: Robaxin-750 Take 1 Tablet by mouth 4 times a day as needed for Pain, Severe. CONTINUE taking these medications INSTRUCTIONS B Complex Vitamins Capsule Take 1 Capsule by mouth in the morning. B-12 50 MCG Tabs Take by mouth. cyclobenzaprine 10 MG Tablet Commonly known as: Flexeril Take 1 Tablet by mouth at bedtime as needed for Muscle spasms. escitalopram 10 MG Tablet Commonly known as: Lexapro Take 1 Tablet by mouth in the morning. Fish Oil 300 MG Caps Take by mouth. Folic Acid 20 MG Caps Take by mouth. Vitamin D (Cholecalciferol) 25 MCG (1000 UT) Tabs Take by mouth. STOP taking these medications methylPREDNISolone 4 MG Tbpk Commonly known as: Medrol Dosepack ALLERGIES: Patient has no known allergies. INSTRUCTIONS: Activity: No lifting or pushing or pulling more than 10 lbs for 4 weeks Diet: normal diet Code Status: Full Code Indwelling devices: round OLVIN drain ADMISSION HISTORY & PHYSICAL EXAM (focused): Peter Borjas is a 44 year old, male transferred from [facility] with appendicitis. He reports having pain that begun dull and worsened in severity. He denies nausea or vomiting. The pain was initial vague but settled in the right lower quadrant. He reports mild fever. PHYSICAL EXAMINATION: Most Recent Vital Signs: BP: 149 mmHg/85 mmHg (10/13/241915) Pulse: 63 (10/13/241915) Resp: 20 (10/13/241915) Temp: 36.89 C (10/13/241915) Temp Summary: Temp Min: 36.9 °C (98.4 °F) Max: 36.9 °C (98.4 °F) SpO2: 100 % (10/13/241915) O2 flow rate: Supplemental O2 Delivery: Room Air, None (10/13/241915) Constitutional: no acute distress HEENT: normal: normocephalic, atraumatic; no masses, tenderness, or adenopathy Eyes: sclera and conjunctiva normal Neck: supple, normal range of motion Abdomen: soft, mild right lower quadrant tenderness Musculoskeletal: (-) negative Skin: warm, dry, intact: Neuro: alert, oriented to person, place, and time HOSPITAL COURSE (focused): Patient was found to have acute appendicitis on imaging but initially refused immediate surgery andwish to trial conservative management with antibiotics. He was eventually take to the OR on 10/15 after failing conservative management and found to have perforated appendicitis with gangrene. Refer to operative note for details. Postoperatively, the patient did well after surgery and recovered appro priately. His drain output was still 50cc/24hr on discharge and therefore it was not removed. By the time of discharge he was afebrile, hemodynamically stable, tolerating a diet with bowel function, voiding appropriately, ambulatory, and pain was controlled. He determined to be stable for dischargehome without further antibiotics as he received an appropriate amount after source control in the OR. Operations & Procedures: laparoscopic appendectomy Complications: none significant SIGNIFICANT RESULTS: Vital Signs (last recorded): Most Recent Systolic BP: 120 mmHg (10/19/24714) Most Recent Diastolic BP: 77 mmHg (10/19/24714) Pulse: 86 (10/19/24714) Resp: 16 (10/19/247[address]) Most Recent Temperature: 37.5 C (10/19/24714) Weight: 86.2 kg (190 lb) (10/15/24 171) SpO2: 95 % (10/19/24714) O2 flow rate: 2 L/MIN (10/16/24 0200) Labs: CHEMISTRY: BUN, Creatinine, GFR Estimated, Sodium, Potassium, Chloride, Carbon Dioxide, Glucose, Calcium (see below for most recent value): Lab Results Component Value Date/Time BUN 9 10/19/2024 04:31 AM CREAT 1.1 10/19/2024 04:31 AM NA 139 10/19/2024 04:31 AM POTASSIUM 3.6 10/19/2024 04:31 AM CL 105 10/19/2024 04:31 AM CO2 25 10/19/2024 04:31 AM CA 9.4 10/19/2024 04:31 AM BLOOD COUNT: WBC, Hgb, Platelets (see below for most recent value): Lab Results Component Value Date/Time WBC 12.27 (H) 10/19/2024 04:31 AM HGB 12.2 (L) 10/19/2024 04:31 AM PLT 270 10/19/2024 04:31 AM Imaging (focused): CT abd/pelvis 10/15/2024 IMPRESSION: 1. Findings suggest appendicitis. This is associated with small abdominal ascites and free pelvic fluid. 2. Consolidation in the right lower lobe. This could represent dependent atelectasis or early pneumonic process. Imaging follow-up until resolution is advised. CONSULTS ORDERED: None REFERRING PHYSICIAN: REF: AMANDA DUPONT [address] [place] [phone] (office) [phone] (fax) PRIMARY CARE PROVIDER: PCP: Tj Gibson MD [address] [place] [address] / [facility] [address] (office) [phone] (fax) Note: To contact a physician responsible for this patient’s hospital care, please call [facility] [phone]. documented in this encounter Discharge Instructions * Discharge Instr - AVS* Michelle Young MD - 10/19/2024 10:40 AM EDT Discharge Date: You may call Doctor Goodwin at the department of General Surgery at [phone] during business hours for any questions or test results. For after- hours emergencies call [phone] and have your doctor paged. The information below provides you with the instructions and the list of medications you need to betaking following discharge from the hospital. If you have any questions, please ask before leaving.Please carry this letter with you when you see your doctor in the clinic. If you have questions, you can reach us at the numbers above. Brief summary of your inpatient care: You were admitted with appendicitis and had surgery to removeyour appendix. Your appendix was found to be perforated which required a longer hospital stay. You will be going home on pain medication and instructions for drain care. You should receive a call from the office to make an appointment with Dr. Goodwin in 1-2 weeks. Please reach out to the office if you do not receive a call. Your primary diagnosis at discharge was perforated appendicitis. Your doctors during this hospitalization included: Hector Goodwin Inpatient test results pending: None Operations & Procedures: laparoscopic appendectomy Complications: none significant Advance Directive Documented: Advance Directive Does the Patient have an Advance Directive? No Diet: normal diet Activity: No lifting or pushing or pulling more than 10 lbs for 4 weeks. Getting up and walking after surgery aids recovery in many ways. Much of the pain after major surgery is from muscle spasm. Getting out of bed, sitting and walking help you loosen up and actually reduce your pain. This also helps your breathing and quickens the recovery of your bowel function. Walking and using the stairs is permitted. You should try to get lots of rest. You should avoid full activity and vigorous exercise for about six to eight weeks after surgery. Driving: Don't drive until you are off pain medication for one full week and can walk normally and firmly apply the brake without pain. Date you may return to work or school: Based on further instruction reviewed by surgeon after follow up visit. See your primary care physician (Tj Gibson MD) in 1-2 week(s). Special Instructions: Call the Surgery office at [phone] if you have any questions or concerns or if you experience any of the following: - Elevated temperatures of 101.5 degrees or greater - Persistent nausea and vomiting - Pus-like drainage or redness around the incision or wound - Pain that is not controlled with prescribed medications Follow up with Dr. Goodwin in 2 weeks. - Breathing exercises: These are extremely important. You should do these every hour during waking hours, taking at least ten deep breaths. This expands the small air sacs in the lungs and minimizes postoperative fever and pneumonia. Use your incentive spirometry 10 times/hour when you are awake. - May shower, but do not scrub vigorously over the incisions. - Do not immerse the incision (for example, no swimming, no tub baths, no hot tubs). - An appointment will be made for you with the Department of Surgery in two weeks Please call the number provided above to confirm this appointment. - Randall-Burnette (OLVIN) Drain: You are being discharged home with one or more OLVIN drains to bulb-suction. You should empty the bulb at least twice a day, and more often if it fills more rapidly. Record drain output and bring the recording to your follow-up appointment. The drain should be kept to bulb suction at all times. You may shower with soap and running water with the drain in place. Keep the skin around the drain site clean and dry. documented in this encounter Progress Notes * Cora Gutierrez MD - 10/16/2024 12:43 PM EDT PROGRESS NOTE - General Surgery [facility] [address] Name: Peter Borjas Location: [facility] [id number] Date: 10/16/2024 Time: 12:44 PM DIAGNOSIS: Acute appendicitis PROCEDURE: Laparoscopic appendectomy DATE OF SURGERY: 10/15/2024 Postop day 1 SUBJECTIVE: No acute events overnight. On evaluation today, patient notes generalized abdominal soreness but denied any nausea or vomiting. States that he is voiding and ambulating without issues. Had 2 bowel movements this a.m.. OLVIN drain intact. Patient feels like he can start taking liquids by mouth. OBJECTIVE: Most Recent Vital Signs: BP: 117 mmHg/77 mmHg (10/16/24 1050) Pulse: 81 (10/16/24 1050) Resp: 17 (10/16/24 1050) Temp: 36.78 C (10/16/24 1059) Temp Summary: Temp Min: 36 °C (96.8 °F) Max: 37.6 °C (99.7 °F) SpO2: 94 % (10/16/24 1050) O2 flow rate: 2 L/MIN (10/16/24 0200) Supplemental O2 Delivery: Room Air, None (10/16/24 1050) Vital Signs Last 24 Hours: Systolic BP: Most Recent Systolic BP Av mmHg Min: 100 mmHg Max: 127 mmHg Temperature: Most Recent Temperature Av.7 C Min: 36 C Max: 37.61 C Pulse: Pulse Av.4 Min: 70 Max: 121 Respirations: Resp Av.1 Min: 14 Max: 28 SpO2: SpO2 Av.1 % Min: 89 % Max: 97 % In / Out Past 24 Hrs: Intake/Output Summary (Last 24 hours) at 10/16/2024 1244 Last data filed at 10/16/2024 1032 Gross per 24 hour Intake 1829.39 ml Output 105 ml Net 1724.39 ml Physical Exam Constitutional: Appearance: He is ill-appearing. Cardiovascular: Heart sounds: Normal heart sounds. Pulmonary: Effort: Pulmonary effort is normal. Abdominal: General: There is no distension. Palpations: Abdomen is soft. Tenderness: There is generalized abdominal tenderness. There is no guarding. Comments: OLVIN drain intact. Draining serous fluid. Skin: General: Skin is warm and dry. Neurological: General: No focal deficit present. Mental Status: He is alert and oriented to person, place, and time. Psychiatric: Mood and Affect: Mood normal. LABS: Labs reviewed as indicated below: Lab results within last 7 days (see chart for full results) Units 10/16/24 0438 10/15/24 0748 10/14/24 0530 SODIUM mmol/L 138 140 137 POTASSIUM mmol/L 4.1 3.6 3.7 CHLORIDE mmol/L 103 105 102 CO2 mmol/L 26 23 22 BUN mg/dL 9 7 11 CREATININE mg/dL 1.0 1.1 1.2 Lab results within last 7 days (see chart for full results) Units 10/16/24 0438 10/15/24 0748 10/14/24 0530 HGB g/dL 11.5* 12.2* 13.0* HCT % 35.0* 37.1* 37.9* WBC K/uL 12.18* 9.33 15.16* PLT K/uL 187 195 218 IMAGING: No imaging results in the last 24 hours Sutures/eric to be removed?: no sutures to be removed Central line to be removed or continued?: patient does not have central venous access Current DVT/PE prophylaxis is?: anti-thrombotic stockings (ALOK hose) Current stress ulcer prophylaxis is?: none IMPRESSION: Principal Problem: Acute appendicitis with localized peritonitis, without perforation or abscess Resolved Problems: * No resolved hospital problems. * This is a 44-year-old male admitted for acute appendicitis. He is status post laparoscopic appendectomy following appendix rupture with peritonitis. Has leukocytosis on labs today but remains afebrile. PLAN: -advanced to clear liquids -continue IV fluids -continue Zosyn -p.r.n. pain and nausea medication Patient discussed with Dr. Buddy MD and plan of care was formulated. Please refer to the attending attestation for additional recommendations. Cora Gutierrez MD PGY-1 Resident, Family Medicine [facility] Cosigned by Manas Goodwin MD at 10/17/2024 9:05 AM EDT Associated attestation - Manas Goodwin MD - 10/17/2024 9:05 AM EDT I saw and evaluated the patient 10/16/2024. I have reviewed the resident/fellow physician note and agree. * Cora Gutierrez MD - 10/15/2024 7:20 AM EDT PROGRESS NOTE - General Surgery [facility] [address] Name: Peter Borjas Location: [facility] [id number] Date: 10/15/2024 Time: 1:25 PM DIAGNOSIS: Acute appendicitis PROCEDURE: none this admission DATE OF SURGERY: n/a SUBJECTIVE: Patient was febrile for most part of the day yesterday and overnight. Also complained of the lower abdominal pain overnight. Patient is diffusely tender on abdominal examination today, he is also complaining of chills and tremors which is worsening his abdominal pain. Patient states he would like to get surgery to remove his appendix since he is not getting better. OBJECTIVE: Most Recent Vital Signs: BP: 115 mmHg/80 mmHg (10/15/24 115) Pulse: 89 (10/15/24 115) Resp: 18 (10/15/241155) Temp: 37.5 C (10/15/241155) Temp Summary: Temp Min: 36.9 °C (98.4 °F) Max: 38.4 °C (101.1 °F) SpO2: 95 % (10/15/241155) O2 flow rate: Supplemental O2 Delivery: Room Air, None (10/15/241155) Vital Signs Last 24 Hours: Systolic BP: Most Recent Systolic BP Av.6 mmHg Min: 91 mmHg Max: 117 mmHg Temperature: Most Recent Temperature Av.8 C Min: 36.89 C Max: 38.39 C Pulse: Pulse Av.1 Min: 86 Max: 105 Respirations: Resp Av Min: 16 Max: 18 SpO2: SpO2 Av % Min: 92 % Max: 95 % In / Out Past 24 Hrs: Intake/Output Summary (Last 24 hours) at 10/15/2024 1325 Last data filed at 10/15/2024 0657 Gross per 24 hour Intake 2517.9 ml Output -- Net 2517.9 ml Physical Exam: Physical Exam Constitutional: Appearance: He is ill-appearing. Cardiovascular: Heart sounds: Normal heart sounds. Pulmonary: Effort: Pulmonary effort is normal. Abdominal: General: There is no distension. Palpations: Abdomen is soft. Tenderness: There is generalized abdominal tenderness. There is guarding. Skin: General: Skin is warm and dry. Neurological: General: No focal deficit present. Mental Status: He is alert and oriented to person, place, and time. Psychiatric: Mood and Affect: Mood normal. LABS: Labs reviewed as indicated below: Lab results within last 7 days (see chart for full results) Units 10/15/24 0748 10/14/24 0530 10/13/24 1933 SODIUM mmol/L 140 137 138 POTASSIUM mmol/L 3.6 3.7 4.3 CHLORIDE mmol/L 105 102 100 CO2 mmol/L 23 22 23 BUN mg/dL 7 11 12 CREATININE mg/dL 1.1 1.2 1.1 Lab results within last 7 days (see chart for full results) Units 10/15/24 0748 10/14/24 0530 10/13/24 1933 HGB g/dL 12.2* 13.0* 15.1 HCT % 37.1* 37.9* 45.3 WBC K/uL 9.33 15.16* 14.83* PLT K/uL 195 218 247 IMAGING: CT ABD/PELVIS W IV AND W ORAL CONTRAST Addendum Date: 10/15/2024 COMMENT: THIS REPORT CONTAINS FINDINGS THAT MAY BE CRITICAL TO PATIENT CARE. The exam findings wereverbally communicated by me to RN Aline Law via telephone conference at 1:20 PM EDT on 10/15/2024. The findings were acknowledged and understood. THIS DOCUMENT HAS BEEN ELECTRONICALLY SIGNED BY JUAN RAMON GRISSOM MD Result Date: 10/15/2024 IMPRESSION: 1. Findings suggest appendicitis. This is associated with small abdominal ascites and free pelvic fluid. 2. Consolidation in the right lower lobe. This could represent dependent atelectasis or early pneumonic process. Imaging follow-up until resolution is advised. THIS DOCUMENT HAS BEEN ELECTRONICALLY SIGNED BY JUAN RAMON GRISSOM MD Sutures/eric to be removed?: no sutures to be removed Central line to be removed or continued?: patient does not have central venous access Current DVT/PE prophylaxis is?: anti-thrombotic stockings (ALOK hose) Current stress ulcer prophylaxis is?: none IMPRESSION: Principal Problem: Acute appendicitis with localized peritonitis, without perforation or abscess Resolved Problems: * No resolved hospital problems. * This is a 44-year-old male admitted for acute appendicitis. Patient diffusely tender on abdominal examination today and states that he would like to get surgery to remove appendix. Leukocytosis has resolved but repeat CT AP shows abdominal ascites with free pelvic fluid. PLAN: - keep NPO -continue IV fluids -continue Zosyn -possible laparoscopic appendectomy today. Patient discussed with Dr. Buddy MD and plan of care was formulated. Please refer to the attending attestation for additional recommendations. Cora Gutierrez MD PGY-1 Resident, Family Medicine [facility] ATTENDING NOTE: In light of his worsening symptoms and progressive CT findings, the patient has acquiesced to undergo laparoscopic appendectomy as recommended. Patient has been NPO except for CT contrast. Cefoxitin 2g IV pediatric oncologist. Expect around 5 PM given schedule. Felecia Goodwin MD Cosigned by Manas Goodwin MD at 10/15/2024 1:40 PM EDT Associated attestation - Manas Goodwin MD - 10/15/2024 1:40 PM EDT I saw and evaluated the patient 10/15/2024. I have reviewed the resident/fellow physician note and agree. * Clint Reinoso RN - 10/14/2024 1:51 PM EDT Nursing Critical Care Response Note [facility] [id number] Name: Peter Borjas Date: 10/14/2024 Time: 1:51 PM Event Location: [facility], Unit Area: 6B In the role of the Critical Response Nurse I was involved in the care of this patient. Method of notification to the critical care response nurse: Follow up previous notification Reason for notification or follow up: Patient acuity Observations/Interventions/Assessment: Spoke with primary and charge operator regarding current patient status. Patient is noted to have acute appendicitis for which an appendectomy was recommended by Gen Surg. Patient refusing surgical interventions at this time, choosing to take a holistic approach. Patient is accepting antibiotics as treatment. Patient remains febrile. Outcome/Plan Will no longer follow as CRNs at this time. Please do not hesitate to reach out with any questions or concerns that you may have. * Cora Gutierrez MD - 10/14/2024 9:52 AM EDT PROGRESS NOTE - General Surgery [facility] [address] Name: Peter Borjas Location: [facility] [id number] Date: 10/14/2024 Time: 9:52 AM DIAGNOSIS: Acute appendicitis PROCEDURE: none this admission DATE OF SURGERY: n/a SUBJECTIVE: Patient was febrile with chills overnight however vitals appears to be stable this morning. Patientnotes significant improvement in abdominal pain rating it a 2/10. Denies any nausea, vomiting or changes to bowel movement today. LBM was yesterday. OBJECTIVE: Most Recent Vital Signs: BP: 97 mmHg/62 mmHg (10/14/24707) Pulse: 87 (10/14/24707) Resp: 20 (10/14/24707) Temp: 38 C (10/14/24707) Temp Summary: Temp Min: 36.9 °C (98.4 °F) Max: 38.7 °C (101.7 °F) SpO2: 96 % (10/14/24707) O2 flow rate: Supplemental O2 Delivery: Room Air, None (10/14/24811) Vital Signs Last 24 Hours: Systolic BP: Most Recent Systolic BP Av mmHg Min: 97 mmHg Max: 149 mmHg Temperature: Most Recent Temperature Av.9 C Min: 36.89 C Max: 38.72 C Pulse: Pulse Av.8 Min: 63 Max: 93 Respirations: Resp Av.7 Min: 20 Max: 22 SpO2: SpO2 Av.5 % Min: 96 % Max: 100 % In / Out Past 24 Hrs: Intake/Output Summary (Last 24 hours) at 10/14/2024 0952 Last data filed at 10/14/2024 0800 Gross per 24 hour Intake 814.35 ml Output -- Net 814.35 ml Physical Exam: Constitutional: no acute distress CV: normal heart sounds Chest: normal respiratory effort Abdomen: soft, tenderness to left lower quadrant , nondistended, no rebound or guarding Extremities: no edema Neuro: alert, oriented to person, place, and time Psych: normal mood and affect, judgement normal, memory normal LABS: Labs reviewed as indicated below: Lab results within last 7 days (see chart for full results) Units 10/14/24 0530 10/13/24 1933 SODIUM mmol/L 137 138 POTASSIUM mmol/L 3.7 4.3 CHLORIDE mmol/L 102 100 CO2 mmol/L 22 23 BUN mg/dL 11 12 CREATININE mg/dL 1.2 1.1 Lab results within last 7 days (see chart for full results) Units 10/14/24 0530 10/13/24 1933 HGB g/dL 13.0* 15.1 HCT % 37.9* 45.3 WBC K/uL 15.16* 14.83* PLT K/uL 218 247 IMAGING: No imaging results in the last 24 hours Sutures/eric to be removed?: no sutures to be removed Central line to be removed or continued?: patient does not have central venous access Current DVT/PE prophylaxis is?: anti-thrombotic stockings (ALOK hose) Current stress ulcer prophylaxis is?: none IMPRESSION: Active Problems: Acute appendicitis with localized peritonitis, without perforation or abscess Resolved Problems: * No resolved hospital problems. * This is a 44-year-old male admitted for acute appendicitis. Patient desires medical management without surgical intervention at this point. Notes improvement of symptoms overall but has worsening leukocytosis on labs today. PLAN: -advanced to clear liquids -continue IV fluids -continue Zosyn -continue to monitor patient Patient discussed with Dr. Buddy MD and plan of care was formulated. Please refer to the attending attestation for additional recommendations. Cora Gutierrez MD PGY-1 Resident, Family Medicine [facility] ATTENDING NOTE: Patient voices decreased pain. Exam with decreased tenderness localized RLQ. Having fevers and chills. Clear liquids. Continue to monitor for improvement. Patient wishes to continue nonoperative treatment and wants to avoid surgery. Felecia Goodwin MD Cosigned by Manas Goodwin MD at 10/14/2024 1:11 PM EDT Associated attestation - Manas Goodwin MD - 10/14/2024 1:11 PM EDT I saw and evaluated the patient 10/14/2024. I have reviewed the resident/fellow physician note and agree. documented in this encounter H&P Notes * Manas Goodwin MD - 10/13/2024 8:34 PM EDT HISTORY AND PHYSICAL EXAMINATION - General Surgery [facility] [address] Name: Peter Borjas Location: 18/X Date: 10/13/2024 Time: 8:34 PM PRESENTING PROBLEM: Abdominal pain HISTORY OF PRESENT ILLNESS: Peter Borjas is a 44 year old, male transferred from [facility] with appendicitis. He reports having pain that begun dull and worsened in severity. He denies nausea or vomiting. The pain was initial vague but settled in the right lower quadrant. He reports mild fever. PAST MEDICAL HISTORY: Past Medical History: Diagnosis Date Depression PAST SURGICAL HISTORY: Past Surgical History: Procedure Laterality Date NONE FAMILY HISTORY: No family history on file. SOCIAL HISTORY: Social History Tobacco Use Smoking status: Never Smokeless tobacco: Current Types: Snuff Substance Use Topics Alcohol use: No Drug use: No CURRENT HOSPITAL MEDICATIONS: Note that completed medications (per the MAR) continue to display for 24 hours. Ordered medicationsto be given in the future also display. Current Facility-Administered Medications Medication Dose Route Frequency Provider NSS 0.9% 1,000 mL bolus infusion 1,000 mL Intravenous Once Matt Duran DO Current Outpatient Medications Medication Cyclobenzaprine HCl 10 MG Oral Tablet (Flexeril) methylPREDNISolone 4 MG Oral Tablet Therapy Pack (Medrol Dosepack) Escitalopram Oxalate 10 MG Oral Tablet (Lexapro) ALLERGIES: Patient has no known allergies. ROS: Constitutional: (+) fever Abdominal/GI: (+) abdominal pain All other systems negative. PHYSICAL EXAMINATION: Most Recent Vital Signs: BP: 149 mmHg/85 mmHg (10/13/241915) Pulse: 63 (10/13/241915) Resp: 20 (10/13/241915) Temp: 36.89 C (10/13/241915) Temp Summary: Temp Min: 36.9 °C (98.4 °F) Max: 36.9 °C (98.4 °F) SpO2: 100 % (10/13/241915) O2 flow rate: Supplemental O2 Delivery: Room Air, None (10/13/241915) Constitutional: no acute distress HEENT: normal: normocephalic, atraumatic; no masses, tenderness, or adenopathy Eyes: sclera and conjunctiva normal Neck: supple, normal range of motion Abdomen: soft, mild right lower quadrant tenderness Musculoskeletal: (-) negative Skin: warm, dry, intact: Neuro: alert, oriented to person, place, and time LABS: Labs reviewed as indicated below: Lab Results Component Value Date/Time WBC 14.83 (H) 10/13/2024 07:33 PM HGB 15.1 10/13/2024 07:33 PM HCT 45.3 10/13/2024 07:33 PM PLT 247 10/13/2024 07:33 PM Lab Results Component Value Date/Time NA 138 10/13/2024 07:33 PM POTASSIUM 4.3 10/13/2024 07:33 PM CL 100 10/13/2024 07:33 PM CO2 23 10/13/2024 07:33 PM BUN 12 10/13/2024 07:33 PM CREAT 1.1 10/13/2024 07:33 PM GLUCOSE 134 (H) 10/13/2024 07:33 PM IMAGING: CT scan demonstrates dilated appendix with appendicolith and periappendiceal fat stranding IMPRESSION and PLAN: Acute appendicitis I discussed the diagnosis with the patient and options for treatment. We discussed surgery including appendectomy. I described laparoscopic appendectomy and open appendectomy and their indications. We discussed how his CT shows appendicitis without rupture in my opinion. It is likely he would be able to be discharged afterward. He expressed unwillingness to undergo surgery and asked about alternatives. We discussed nonoperative treatment with admission and antibiotics. I explained that his CT shows an appendicolith. If we were successful with nonoperative treatment, he would have a high likelihood of recurrent appendicitis within 2 years. For that reason, I strongly recommended against nonoperative treatment in his case and for laparoscopic appendectomy. He, however, remained steadfast. Our shared decision for his treatment shall then be for nonoperative management as per his wishes. Heunderstands that with this treatment there is a chance that he could develop a complication such as perforation, peritonitis, or abscess, and that this complication would make subsequent treatment more difficult than it would have been had we proceeded with laparoscopic appendectomy now. The patient thanked me for my willingness to treat him based upon his desire to approach his disease more holistically which is more in line with his beliefs than surgery. Admission. NPO. IVF. Zosyn. Active observation. REFERRING PHYSICIAN: Amanda Dupont DO PRIMARY CARE PHYSICIAN: Tj Gibson MD documented in this encounter Nursing Notes * Shante Harley NA/UDC - 10/19/2024 11:[address] Ney Goodwin (General Surgery) [phone] [place] [id number] Monday November 04, 2024 @ 1:15 p.m. * Mamie Perez RN - 10/15/2024 10:59 PM EDT IN-HOUSE TRANSFER RECEIVING UNIT - NURSING [address] [address] Name: Peter Borjas Location: [facility] 6B-6005/D Date: 10/15/2024 Time: 10:59 PM Patient received to room [facility] at 2112 Vital Signs: BP: 109 mmHg/70 mmHg (10/15/242214) Pulse: 82 (10/15/242214) Resp: 17 (10/15/242214) Temp: 37.28 C (10/15/242214) Temp Summary: Temp Min: 36.1 °C (97 °F) Max: 38 °C (100.4 °F) SpO2: 93 % (10/15/242214) O2 flow rate: 2 L/MIN (10/15/242214) Supplemental O2 Delivery: Nasal Cannula (10/15/242214) Pertinent transfer information upon arrival Pt arrived via hospital bed from PACCU. Pt is AOx3 calmand cooperative. Abdomen is soft, slightly tender, bowel sounds are present. OLVIN is to suction. IVF are infusing as ordered. Pt reoriented to room and call walls system. Belongings received with patient: see flowsheets Verbal SBAR report received from: Susan Curran RN Dual Licensed Skin Assessment completed by Marisabel Perez RN and Susan Curran RN. The patient is/has a N/A Skin Breakdown (includes non blanchable erythema): Yes - Surgical/Procedural changes only. * Gayle Curran RN - 10/15/2024 9:01 PM EDT Post Anesthesia Care Unit Discharge Note [address] [address] Dept. Peter Borjas Vital Signs Stable Discharged from PACU as per discharge criteria (see discharge criteria sheet). Time: 904 Reported to: RN 6b Taken to Inpatient Room [facility], accompanied by Responsible adult Susan Curran Rn. Transported via: Bed Belongings with Patient: Not Applicable Prescriptions on Chart: N/A Patient meets criteria to be transferred or discharged * Leeann Garcia RN - 10/15/2024 5:21 PM EDT IN-HOUSE TRANSFER SENDING UNIT - NURSING [address] [address] Name: Peter Borjas Location: OR [facility]/OR Date: 10/15/2024 Time: 5:21 PM Pertinent information upon transfer Patient NPO since 1200. Isolation: None Transferring nursing unit: 6B Vital signs: BP: 113 mmHg/73 mmHg (10/15/241712) Pulse: 92 (10/15/241712) Resp: 16 (10/15/241712) Temp: 36.28 C (10/15/241712) Temp Summary: Temp Min: 36.3 °C (97.3 °F) Max: 38.1 °C (100.5 °F) SpO2: 93 % (10/15/241712) O2 flow rate: Supplemental O2 Delivery: Room Air, None (10/15/241712) From room 6005 to [facility] Means of transfer: bed Family and/or significant other notified of transfer: no, reason: Patient notified family Belongings being sent with patient: n/a Verbal SBAR report given to: ENEDINA Berman * Kierra Lindsey RN - 10/14/2024 11:41 PM EDT 2344: Pt. Rang call walls and stated he is now having 8/10 pain in his lower abdomen. He describes the pain as pressure, sharp, and stabbing in nature. Medicated per AUG. He denies nausea. He has beenslightly febrile for most of the day despite antipyretics. TT to Dr. Sapp to make her aware ofthese changes. 0045: Rounded on patient. He is lying in bed. Reports pain is much improved and is now a 3/10. He feels as though his fever has broke as he is diaphoretic. Oral temp 99.9 F. Will continue to monitor. * Kierra Lindsey RN - 10/13/2024 10:40 PM EDT IN-HOUSE TRANSFER RECEIVING UNIT - NURSING [address] [address] Name: Peter Borjas Location: [facility] 6005/D Date: 10/13/2024 Time: 10:40 PM Patient received to room 600 at 2106 Vital Signs: BP: 133 mmHg/90 mmHg (10/13/242108) Pulse: 93 (10/13/242108) Resp: 22 (10/13/242108) Temp: 37.72 C (10/13/242108) Temp Summary: Temp Min: 36.9 °C (98.4 °F) Max: 37.7 °C (99.9 °F) SpO2: 97 % (10/13/242108) O2 flow rate: Supplemental O2 Delivery: Room Air, None (10/13/242108) Pertinent transfer information upon arrival Pt. Here with appendicitis found from workup at [facility]. Pt. Is A&Ox4. Reports 7/10 pain around his umbilicus. No nausea at this time, but does have chills intermittently which currently bothers him more than the pain. Oriented toroom and given call walls. Medicated per AUG. Belongings received with patient: see ADT navigator Verbal SBAR report received from: Rickey Hoang RN Dual Licensed Skin Assessment completed by Alexia Lindsey RN and Robson Monsivais RN. The patient is/has a N/A Skin Breakdown (includes non blanchable erythema): No * Sobia Dixon RN - 10/13/2024 9:25 PM EDT VIRTUAL RN [facility] [address] Name: Peter Borjas Location: [facility] 6005/D Date: 10/13/2024 Time: 9:25 PM I completed the Admission Navigator. The patient was in the hospital. I was not in a hospital or clinic location. After connecting through [employer], the patient was identified by name and date of and / or wristband checked. Patient (or authorized legal inbound customer service representative) was then informed that this was a Virtual Nurse visit and was being conducted confidentially over secure lines. I used a headset and other methods to ensure confidentiality for the patient. My office door was closed. No oneelse was in the room with me. Patient acknowledged consent and understanding of privacy and security of the Virtual Nurse visit. I presented the opportunity for the patient or authorized legal inbound customer service representative to ask any questions regarding the visit today. The patient or authorized legal inbound customer service representative agreed to participate. Pt was alert and oriented with the call walls within reach. Admission questions were completed and the pt had no concerns/questions. The bedside nurse (Kierra Toledo) made aware that the pt belongings, skinassessment, dysphagia screening, and aggression scale needs to be completed by the bedside nurse. The pt was instructed on using the call walls for assistance as needed. documented in this encounter OR Notes * OR Surgeon - Manas Goodwin MD - 10/15/2024 8:09 PM EDT [facility] [address] OPERATIVE REPORT Name: Peter Borjas Date: 10/15/2024 Time: 8:10 PM Location: OR [facility] Service: General Surgery Date of Operation: 10/15/2024 Pre-op Diagnosis: Appendicitis Post-op Diagnosis: Appendicitis Operation: Laparoscopic appendectomy Surgeon: Román Goodwin MD Assistants: None Anesthesia: General endotracheal anesthesia Case Acuity: Urgent Wound Class: Dirty Infection Present at the Time of Surgery: Yes Evidence of infection: Purulent exudate or pus, Abscess or phlegmon, Necrotic bowel requiring resection, and Ruptured appendicitis Depth of Infection: Organ Space Surgical Clean Closure Bundle Used: Wound Protector, Clean closure tray, Change of gown and gloves, and Delayed skin closure Irrigation of the Fascia / Subcutaneous Space: Antiseptic irrigation irricept Irrigation of the Organ Space: N/A AbThera Wound Vacuum for Open Abdomen: N/A Drains: (#10) Randall-Burnette drain(s) with closed bulb suction in the RLQ positioned in pelvis Estimated Blood Loss: 75 ml. IV Fluids: See anesthesia record Urine Output: N/A Specimens/Disposition: Appendix Apparent Intraoperative Complications: None Patient Condition: Stable Disposition: Post Anesthesia Care Unit Indications: Peter Borjas is a 44 year old male who presents with the symptoms, signs, and findings of acute appendicitis. He initially declined surgery on admission and antibiotic treatment was initiated. His symptoms and signs worsened. He has acquiesced to surgery. Appendectomy is planned for t reatment. Consent: The details, benefits, risks, options, and alternatives of laparoscopic appendectomy, possible open, were explained to the patient, including the risks of bleeding, infection, and other organ injury. After apprising him of these risks, he verbalized understanding and agreed to proceed. Details: The patient was brought to the operating room, correctly identified as Peter Borjas, andpositioned supine on the operating room table. After induction of general anesthesia, the abdomen was sterilely prepped and draped. A timeout occurred, and the correct patient, procedure, and site were verified. A transverse incision above the umbilicus was marked and infiltrated with 0.5% Marcaine w/ Epinephrine. The incision was made with a 15 blade and carried down to the fascia. The fascia was elevated with Ariel clamps, divided with a 15 blade, and a Ale clamp was used to make peritoneal entry. This was followed by introduction of an 12 mm trocar. The camera was inserted, and the abdomen was insufflated under direct vision to 15 mm Hg pressure. A general inspection revealed no evidence of injury upon peritoneal entry. Present was diffuse fibrinopurulent peritonitis that was worst in the right, lower quadrant, but which extended to the right, upper quadrant and pelvis. Two additional 5 mm por ts were placed on the patient's left lower quadrant and hypogastrium in standard fashion. Through these, graspers were placed. The cecum was rotated medially to expose the inflamed appendix. A windowwas made in the base of the appendiceal mesentery to accommodate a 2.5 mm x 45 mm EndoGIA stapler. This was placed via a 12 port reinserted through the hypogastric incision. The stapler was fired acro ss the base of the appendix. The appendiceal mesentery was then taken with the harmonic scalpel. The appendix was placed within an EndoCatch bag. The abdomen was then diligently cleaned of all fibrinous exudate and was suctioned free of fibrinopurulent ascites. One final inspection revealed the absence of bleeding. A 5 mm port was placed in the right lower quadrant and via the hypogastric port a #10 Randall-Burnette drain was passed and then placed in the pelvis, secured with 3-0 Nylon. The appendix was removed via the umbilical incision. The abdomen was desufflated and all trocars removed underdirect vision. Gloves and gowens were changed. The umbilical fascia was closed in a [id number] using 0 Vicryl suture. All incisions were irrigated with an Irricept dwell, dried, and closed with eric in the middle of each incision so as to allow each to gap open and allow for drainage bilaterally. Gauze dressings were placed. This terminated the procedure. At the end, all sponge and instrument counts were correct. The patient was awakened and taken to recovery in stable condition. There were no complications. Findings: Acute appendicitis with gangrene, with rupture, and without abscess, and with diffuse fibrinopurulent peritonitis. Attestation: I performed the procedure documented in this encounter ED Notes * Matt Duran, DO - 10/13/2024 7:32 PM EDT HISTORY OF PRESENT ILLNESS Peter Borjas is a 44 year old male who presents to the ED for evaluation of Abdominal Pain. The patient was seen at 10/13/24 1903. Abdominal Pain Review of Systems Gastrointestinal: Positive for abdominal pain. All other systems reviewed and are negative. This is a 44-year-old male presenting to Emergency Department as a transfer from [facility] for further management of appendicitis seen on CT imaging. The patient reports periumbilical abdominal pain worsening over the last few days. He had 1 loose stool earlier today. He reports fevers and chills. He was nauseous, but did receive Zofran at outside hospital, which improved this.He received pain medications for his pain, which did provide improvement, but pain that has now an 8/10. He also received 1 dose of Zosyn prior to transfer. The patient's allergies, past history, and medications were reviewed. PHYSICAL EXAM Initial Vitals (see all): BP 149/85 | Pulse 63 | Resp 20 | Temp 98.4 | O2 100 %, Room Air, None | Weight 83.92 kg | Height 175.3 cm | Initial Pain Assessment (see all): 8 (severe pain)/10, location: abd R sided ([facility] Adult Scale 0-10 (18 years and older)) Physical Exam Vitals and nursing note reviewed. Constitutional: General: He is not in acute distress. Appearance: He is well-developed. HENT: Head: Normocephalic and atraumatic. Eyes: Conjunctiva/sclera: Conjunctivae normal. Cardiovascular: Rate and Rhythm: Normal rate and regular rhythm. Heart sounds: No murmur heard. Pulmonary: Effort: Pulmonary effort is normal. No respiratory distress. Breath sounds: Normal breath sounds. Abdominal: Palpations: Abdomen is soft. Tenderness: There is abdominal tenderness in the periumbilical area. There is no guarding or rebound. Hernia: No hernia is present. Musculoskeletal: General: No swelling. Cervical back: Neck supple. Skin: General: Skin is warm and dry. Capillary Refill: Capillary refill takes less than 2 seconds. Neurological: Mental Status: He is alert. Psychiatric: Mood and Affect: Mood normal. PROCEDURES AND TREATMENTS ED Orders | ED Results MEDICAL DECISION MAKING Nursing notes and vital signs were reviewed. Differential Diagnoses Based on my history, physical exam, and evaluation, the differential includes, but is not limited, to the following diagnoses: Appendicitis, abscess, perforation. Amount and/or Complexity of Data Reviewed Labs: ordered. Risk Prescription drug management. Decision regarding hospitalization. This is a 44-year-old male presenting to the Emergency Department after transfer for further management of appendicitis. Vital signs normal on arrival. Physical exam as above. CBC with leukocytosis. CMP without significant abnormality. Lactate and INR normal. 1 L normal saline ordered. Case discussed with General Surgery, who evaluated the patient in the Emergency Department. The patient opted for observation on antibiotics, and patient was admitted to the surgical service for further management. Patient remained stable while under my care in the Emergency Department. Clinical Impressions Acute appendicitis with localized peritonitis Disposition Admitted. I discussed the management of this patient with the admitting provider and I made a decision to admit the patient. Admission Order Ordered Status . 10/13/242050 Assign to Observation ONCE Completed Matt Duran * Caitlyn Batista RN - 10/13/2024 7:15 PM EDT Pt sent in for appendicitis. Started 24 hr ago documented in this encounter Miscellaneous Notes * Pt Handout (on AVS) - Tera Frances RN - 10/19/2024 11:19 AM EDT Images from the original note were not included. [address] Appendectomy An appendectomy is surgery to remove the appendix. The goal is to remove the appendix safely. In most cases, the surgery takes about 30 to 60 minutes. If your appendix has burst, surgery may take longer. Before surgery · Before surgery, you'll be asked to sign an informed consent. Signing this form means you understand the risks and benefits of the procedure. Be sure all of your questions are answered before you sign. · Tell your healthcare provider about all the medicines you take. This includes prescription and [id number] medicines. It also includes vitamins, herbs, and other supplements. · You may get fluids, antibiotics, and other medicines through an IV (intravenous) line. Tell yourprovider if you're allergic to any medicines or have any other health concerns. · You'll be given anesthesia just before your appendectomy. This keeps you pain-free and allows you to sleep during the surgery. Types of surgery An appendectomy may be done in 2 ways. Your surgeon will discuss which method is best for you: · Open surgery. One cut (incision), several inches long, is made in your lower right side. A bigger incision may be used if the appendix has burst. · Laparoscopic surgery. About 2 to 4 small incisions are used. One is near your belly button. The others are on other parts of your belly (abdomen). A thin tube with a tiny camera attached (laparoscope) is inserted through 1 incision. The camera shows the inside of your abdomen on a video screen. This image helps guide the surgery. Tiny surgical tools are put into the other incisions. Finishing the surgery In most cases, the full incision is closed with stitches or eric. Your surgeon may place a short-term (temporary) drain in the wound or in your abdomen. This helps remove any extra fluid. This mayhelp prevent infection. This drain is usually taken out before you're discharged. If your appendix has burst, the outer layers of the incision may be left open. Leaving the skin open prevents infection from forming under the skin. It may heal on its own. Or it may be closed about 5 days later. After the surgery Keep any advised follow-up appointments with your healthcare provider. If you're told to take any medicines, take them as directed. If you're given breathing exercises, do them as directed. After thesurgery, your removed appendix is checked under a microscope. Your provider will tell you the results. When to call your healthcare provider Call your healthcare provider if you have any of these: · Swelling, oozing, pain that gets worse, or redness near the incision · A fever of 100.4° F (38° C) or higher, or as advised by your provider · Belly pain that gets worse · Severe diarrhea, bloating, or constipation · Upset stomach (nausea) or vomiting · Leg pain or swelling Call 911 Call 911 right away if you have trouble breathing. Last Reviewed Date: 2023 00:00:00 © [employer]. All rights reserved. This information is not intended as a substitute for professional medical care. Always follow your healthcare professional's instructions. * Pt Handout (on AVS) - Tera Frances RN - 10/19/2024 11:19 AM EDT Images from the original note were not included. [id number] Appendectomy An appendectomy is surgery to remove the appendix. The goal is to remove the appendix safely. In most cases, the surgery takes about 30 to 60 minutes. If your appendix has burst, surgery may take longer. Before surgery · Before surgery, you'll be asked to sign an informed consent. Signing this form means you understand the risks and benefits of the procedure. Be sure all of your questions are answered before you sign. · Tell your healthcare provider about all the medicines you take. This includes prescription and [id number] medicines. It also includes vitamins, herbs, and other supplements. · You may get fluids, antibiotics, and other medicines through an IV (intravenous) line. Tell yourprovider if you're allergic to any medicines or have any other health concerns. · You'll be given anesthesia just before your appendectomy. This keeps you pain-free and allows you to sleep during the surgery. Types of surgery An appendectomy may be done in 2 ways. Your surgeon will discuss which method is best for you: · Open surgery. One cut (incision), several inches long, is made in your lower right side. A bigger incision may be used if the appendix has burst. · Laparoscopic surgery. About 2 to 4 small incisions are used. One is near your belly button. The others are on other parts of your belly (abdomen). A thin tube with a tiny camera attached (laparoscope) is inserted through 1 incision. The camera shows the inside of your abdomen on a video screen. This image helps guide the surgery. Tiny surgical tools are put into the other incisions. Finishing the surgery In most cases, the full incision is closed with stitches or eric. Your surgeon may place a short-term (temporary) drain in the wound or in your abdomen. This helps remove any extra fluid. This mayhelp prevent infection. This drain is usually taken out before you're discharged. If your appendix has burst, the outer layers of the incision may be left open. Leaving the skin open prevents infection from forming under the skin. It may heal on its own. Or it may be closed about 5 days later. After the surgery Keep any advised follow-up appointments with your healthcare provider. If you're told to take any medicines, take them as directed. If you're given breathing exercises, do them as directed. After thesurgery, your removed appendix is checked under a microscope. Your provider will tell you the results. When to call your healthcare provider Call your healthcare provider if you have any of these: · Swelling, oozing, pain that gets worse, or redness near the incision · A fever of 100.4° F (38° C) or higher, or as advised by your provider · Belly pain that gets worse · Severe diarrhea, bloating, or constipation · Upset stomach (nausea) or vomiting · Leg pain or swelling Call 911 Call 911 right away if you have trouble breathing. Last Reviewed Date: 2023 00:00:00 © [employer]. All rights reserved. This information is not intended as a substitute for professional medical care. Always follow your healthcare professional's instructions. * Pt Handout (on AVS) - Tera Frances RN - 10/19/2024 11:18 AM EDT Images from the original note were not included. [id number] Discharge Instructions: Caring for Your Randall-Burnette Drainage Tube Your health care provider discharged you with a Randall-Burnette drainage tube. They commonly leave this drain within the abdomen and other cavities after surgery. It helps drain and collect blood and other body fluids after surgery. This can prevent swelling and potentially reduce the risk for infection. The tube is held in place by a stitch or two. It's covered with a bandage. Your provider will remove the drain when they determine you no longer need it. Home care · Don?t sleep on the same side as the tube. · Secure the tube and bag inside your clothing with a safety pin. This helps keep the tube from being pulled out. · Empty your drain at least twice a day. Empty it more often if the drain is full. Wash and dry your hands before emptying the drain. o Lift the opening on the drain. o Drain the fluid into a measuring cup. o Record the amount of fluid each time you empty the drain. Include the date and time it was emptied. Share this information with your provider on your next visit. o Squeeze the bulb with your hands until you stop hearing air coming out of the bulb if your provider has instructed you to do so. (Sometimes the bulb is used as a reservoir without suction.) Check with your provider about specific drain instructions. o Close the opening. · If you are to change the dressing around the tube, follow the directions your provider has givenyou. Some dressings may not need to be changed, but your provider will let you know, so follow their specific instructions. Here are some general steps to follow: o Wash your hands. o Remove the old bandage. o Wash your hands again. o Gently clean the skin around the incision and tube site as instructed. o Put a new bandage on the incision and tube site. Make the bandage large enough to cover the wholeincision area. o Tape the bandage in place. · Talk with your provider about showering with the drain. You may need to keep the bandage and tube site dry when you shower. Ask your health care team about the best way to do this. · ?Stripping? the tube helps keep blood clots from blocking the tube. Ask your health care team how often you should strip the tube. Stripping may not be needed, depending on where and why your provider placed the tube. It may even be dangerous in some cases. o Hold the tubing firmly where it leaves the skin, with one hand. This keeps it from pulling on theskin. o Pinch the tubing with the thumb and first finger of your other hand. o Slowly and firmly pull your thumb and first finger down the tubing. You may find it helpful to hold an alcohol swab between your fingers and the tube to lubricate the tubing. o If the pulling hurts or feels like the tube is coming out of the skin, stop. Begin again more gently. Follow-up care Make a follow-up appointment as directed by your health care staff. When to contact your doctor Contact your provider or seek medical care right away if: · You have new or increased pain around the tube. · There is redness, swelling, or warmth around the incision or tube. · The drainage is foul-smelling. · You are vomiting. · You have a fever of 100.4°F ( 38°C) or higher, or as directed by your provider. · You have chills. · Fluid is leaking around the tube. · The incision doesn't seem to be healing. · Your stitches become loose or the drain starts to come out. · The tube falls out or breaks. · The drainage changes from light pink to dark red. · There are blood clots in the drainage bulb. · You have a sudden increase (over 30 mL) or decrease in the amount of drainage. Last Reviewed Date: 2024 00:00:00 © [employer]. All rights reserved. This information is not intended as a substitute for professional medical care. Always follow your healthcare professional's instructions. * Pt Handout (on AVS) - Tera Frances RN - 10/19/2024 11:18 AM EDT Images from the original note were not included. [id number] How to Empty Your Drain After Surgery [id number]: Last Reviewed Date: 2024 00:00:00 © [employer]. All rights reserved. This information is not intended as a substitute for professional medical care. Always follow your healthcare professional's instructions. * Pt Handout (on AVS) - Tera Frances RN - 10/19/2024 11:18 AM EDT Images from the original note were not included. [id number] How to Empty Your Drain After Surgery [id number]-[id number]: Last Reviewed Date: 2024 00:00:00 © [employer]. All rights reserved. This information is not intended as a substitute for professional medical care. Always follow your healthcare professional's instructions. * Pt Handout (on AVS) - Tera Frances RN - 10/19/2024 11:18 AM EDT Images from the original note were not included. [id number] Discharge Instructions: Caring for Your Randall-Burnette Drainage Tube Your health care provider discharged you with a Randall-Burnette drainage tube. They commonly leave this drain within the abdomen and other cavities after surgery. It helps drain and collect blood and other body fluids after surgery. This can prevent swelling and potentially reduce the risk for infection. The tube is held in place by a stitch or two. It's covered with a bandage. Your provider will remove the drain when they determine you no longer need it. Home care · Don?t sleep on the same side as the tube. · Secure the tube and bag inside your clothing with a safety pin. This helps keep the tube from being pulled out. · Empty your drain at least twice a day. Empty it more often if the drain is full. Wash and dry your hands before emptying the drain. o Lift the opening on the drain. o Drain the fluid into a measuring cup. o Record the amount of fluid each time you empty the drain. Include the date and time it was emptied. Share this information with your provider on your next visit. o Squeeze the bulb with your hands until you stop hearing air coming out of the bulb if your provider has instructed you to do so. (Sometimes the bulb is used as a reservoir without suction.) Check with your provider about specific drain instructions. o Close the opening. · If you are to change the dressing around the tube, follow the directions your provider has givenyou. Some dressings may not need to be changed, but your provider will let you know, so follow their specific instructions. Here are some general steps to follow: o Wash your hands. o Remove the old bandage. o Wash your hands again. o Gently clean the skin around the incision and tube site as instructed. o Put a new bandage on the incision and tube site. Make the bandage large enough to cover the wholeincision area. o Tape the bandage in place. · Talk with your provider about showering with the drain. You may need to keep the bandage and tube site dry when you shower. Ask your health care team about the best way to do this. · ?Stripping? the tube helps keep blood clots from blocking the tube. Ask your health care team how often you should strip the tube. Stripping may not be needed, depending on where and why your provider placed the tube. It may even be dangerous in some cases. o Hold the tubing firmly where it leaves the skin, with one hand. This keeps it from pulling on theskin. o Pinch the tubing with the thumb and first finger of your other hand. o Slowly and firmly pull your thumb and first finger down the tubing. You may find it helpful to hold an alcohol swab between your fingers and the tube to lubricate the tubing. o If the pulling hurts or feels like the tube is coming out of the skin, stop. Begin again more gently. Follow-up care Make a follow-up appointment as directed by your health care staff. When to contact your doctor Contact your provider or seek medical care right away if: · You have new or increased pain around the tube. · There is redness, swelling, or warmth around the incision or tube. · The drainage is foul-smelling. · You are vomiting. · You have a fever of 100.4°F ( 38°C) or higher, or as directed by your provider. · You have chills. · Fluid is leaking around the tube. · The incision doesn't seem to be healing. · Your stitches become loose or the drain starts to come out. · The tube falls out or breaks. · The drainage changes from light pink to dark red. · There are blood clots in the drainage bulb. · You have a sudden increase (over 30 mL) or decrease in the amount of drainage. Last Reviewed Date: 2024 00:00:00 © [employer]. All rights reserved. This information is not intended as a substitute for professional medical care. Always follow your healthcare professional's instructions. * Progress Notes - Post-Op Global - Michelle Young MD - 10/19/2024 10:24 AM EDT PROGRESS NOTE - General Surgery [facility] [address] Name: Peter Borjas Location: [facility] [id number] Date: 10/19/2024 Time: 10:24 AM DIAGNOSIS: Acute appendicitis PROCEDURE: laparoscopic appendectomy DATE OF SURGERY: 10/15/2024 POST OP DAY: 4 SUBJECTIVE: Afebrile. No acute events overnight. Pain improving with muscle relaxers. +flatus/BM. Tolerating diet. Drain with 50 cc/24hrs. OBJECTIVE: Most Recent Vital Signs: BP: 120 mmHg/77 mmHg (10/19/24714) Pulse: 86 (10/19/24714) Resp: 16 (10/19/24714) Temp: 37.5 C (10/19/24714) Temp Summary: Temp Min: 37.1 °C (98.7 °F) Max: 37.8 °C (100 °F) SpO2: 95 % (10/19/24714) O2 flow rate: 2 L/MIN (10/16/24 0200) Supplemental O2 Delivery: Room Air, None (10/19/24844) Vital Signs Last 24 Hours: Systolic BP: Most Recent Systolic BP Av.7 mmHg Min: 116 mmHg Max: 127 mmHg Temperature: Most Recent Temperature Av.4 C Min: 37.06 C Max: 37.78 C Pulse: Pulse Av.3 Min: 77 Max: 90 Respirations: Resp Av.5 Min: 16 Max: 17 SpO2: SpO2 Av % Min: 95 % Max: 97 % In / Out Past 24 Hrs: Intake/Output Summary (Last 24 hours) at 10/19/2024 1024 Last data filed at 10/19/2024 0605 Gross per 24 hour Intake 954.03 ml Output 40 ml Net 914.03 ml Physical Exam: Constitutional: no acute distress CV: normal heart sounds Chest: normal respiratory effort Surgical site: No signs of infection and healing well. Drain with serous output. Neuro: alert, oriented to person, place, and time Psych: normal mood and affect, judgement normal, memory normal LABS: Labs reviewed as indicated below: Lab results within last 7 days (see chart for full results) Units 10/19/24 0431 10/18/24 04310/17/24 0513 SODIUM mmol/L 139 139 142 POTASSIUM mmol/L 3.6 3.7 4.0 CHLORIDE mmol/L 105 105 108* CO2 mmol/L BUN mg/dL 9 9 10 CREATININE mg/dL 1.1 1.1 1.0 Lab results within last 7 days (see chart for full results) Units 10/19/24 0431 10/18/24 0432 10/17/24 0512 HGB g/dL 12.2* 11.8* 10.7* HCT % 36.0* 36.3* 32.7* WBC K/uL 12.27* 11.42* 12.21* PLT K/uL 270 279 235 IMAGING: No imaging results in the last 24 hours Sutures/eric to be removed?: patient to go home with eric/stitches Central line to be removed or continued?: patient does not have central venous access Current DVT/PE prophylaxis is?: anti-thrombotic stockings (ALOK hose) Current stress ulcer prophylaxis is?: diet by mouth IMPRESSION: Principal Problem: Acute appendicitis with localized peritonitis, without perforation or abscess Resolved Problems: * No resolved hospital problems. * This is a 44-year-old male admitted for acute appendicitis s/p laparoscopic appendectomy found to have perforated appendicitis now POD4 doing well. Afebrile x 24hrs. WBC stable. No evidence of systemic or localized infection. Ok to be discharged home today. PLAN: -continue diet -continues Zosyn x 4 days from surgery - last dose last night. No further abx needed. -dc home tomorrow with drain. Michelle Young M.D. General Surgeon [facility] * Care Plan - Ivy Hinkle RN - 10/19/2024 5:24 AM EDT Clinical Goal(s): Pt temp will remain below 100.5 this shift (10/18/241999) Possible barriers to meeting goal(s)/advancing plan of care: Diagnosis Stability of the patient: Moderately stable - low risk of patient condition declining or worsening Summary regarding today's goal(s): Met: Temp stayed below 100 .5 this shift Recommendations: Monitor OLVIN output, encourage ambulation, medicate for pain per MAR * Care Plan - Tasia Metz RN - 10/18/2024 3:58 PM EDT Clinical Goal(s): Pts temp will remain below 100.1 this shift (10/18/24729) Possible barriers to meeting goal(s)/advancing plan of care: perforated appendicitis Stability of the patient: Moderately stable - low risk of patient condition declining or worsening Summary regarding today's goal(s): Met: Pt did remain afebrile this shift, of note, he did receive routine tylenol through noon today. Recommendations: Monitor VS through the night, tylenol as needed for fevers, soma added for pain . * Progress Notes - Post-Op Global - Michelle Young MD - 10/18/2024 12:19 PM EDT PROGRESS NOTE - General Surgery [facility] [address] Name: Peter Borjas Location: [facility] [id number] Date: 10/18/2024 Time: 12:19 PM DIAGNOSIS: Acute appendicitis PROCEDURE: laparoscopic appendectomy DATE OF SURGERY: 10/15/2024 POST OP DAY: 3 SUBJECTIVE: Afebrile. No acute events overnight. Has been having low grad fevers. Last temp 100.2 at 4 am. Continues to have pain at drain site. +flatus/BM. Tolerating diet. Drain with 50 cc/24hrs. OBJECTIVE: Most Recent Vital Signs: BP: 121 mmHg/76 mmHg (10/18/24 110) Pulse: 77 (10/18/24 110) Resp: 17 (10/18/241106) Temp: 37.22 C (10/18/24 110) Temp Summary: Temp Min: 36.8 °C (98.2 °F) Max: 37.9 °C (100.2 °F) SpO2: 97 % (10/18/24 110) O2 flow rate: 2 L/MIN (10/16/24 0200) Supplemental O2 Delivery: Room Air, None (10/18/24 110) Vital Signs Last 24 Hours: Systolic BP: Most Recent Systolic BP Av.7 mmHg Min: 112 mmHg Max: 133 mmHg Temperature: Most Recent Temperature Av.5 C Min: 36.78 C Max: 37.89 C Pulse: Pulse Av.2 Min: 71 Max: 87 Respirations: Resp Av.3 Min: 15 Max: 17 SpO2: SpO2 Av.2 % Min: 94 % Max: 97 % In / Out Past 24 Hrs: Intake/Output Summary (Last 24 hours) at 10/18/2024 1219 Last data filed at 10/18/2024 0700 Gross per 24 hour Intake 1445.76 ml Output 50 ml Net 1395.76 ml Physical Exam: Constitutional: no acute distress CV: normal heart sounds Chest: normal respiratory effort Surgical site: No signs of infection and healing well. Drain with serous output. Neuro: alert, oriented to person, place, and time Psych: normal mood and affect, judgement normal, memory normal LABS: Labs reviewed as indicated below: Lab results within last 7 days (see chart for full results) Units 10/18/24 0432 10/17/24 0513 10/16/24 0438 SODIUM mmol/L 139 142 138 POTASSIUM mmol/L 3.7 4.0 4.1 CHLORIDE mmol/L 105 108* 103 CO2 mmol/L 24 26 26 BUN mg/dL 9 10 9 CREATININE mg/dL 1.1 1.0 1.0 Lab results within last 7 days (see chart for full results) Units 10/18/24 0432 10/17/24 0512 10/16/24 0438 HGB g/dL 11.8* 10.7* 11.5* HCT % 36.3* 32.7* 35.0* WBC K/uL 11.42* 12.21* 12.18* PLT K/uL 279 235 187 IMAGING: No imaging results in the last 24 hours Sutures/eric to be removed?: patient to go home with eric/stitches Central line to be removed or continued?: patient does not have central venous access Current DVT/PE prophylaxis is?: anti-thrombotic stockings (ALOK hose) Current stress ulcer prophylaxis is?: diet by mouth IMPRESSION: Principal Problem: Acute appendicitis with localized peritonitis, without perforation or abscess Resolved Problems: * No resolved hospital problems. * This is a 44-year-old male admitted for acute appendicitis s/p laparoscopic appendectomy found to have perforated appendicitis now POD3 with low grade fevers overnight. Leukocytosis improving. Patient encouraged to use IS. Will continue to monitor temperature for now. If remains afebrile x24hrs then possible dc tomorrow. PLAN: -continue diet -continues Zosyn x 4 days from surgery. -p.r.n. pain and nausea medication -will adjust pain meds for better pain control. -monitor vitals and temperature closely. -possible dc home tomorrow with drain. Michelle Young M.D. General Surgeon [facility] * Care Plan - Ivy Hinkle RN - 10/18/2024 6:39 AM EDT Clinical Goal(s): Pt will rest well overnight between cares (10/17/242111) Possible barriers to meeting goal(s)/advancing plan of care: Diagnosis Stability of the patient: Moderately stable - low risk of patient condition declining or worsening Summary regarding today's goal(s): Met: Pt rested well between cares Recommendations: Continue with plan of care * Care Plan - Ayse Arce RN - 10/17/2024 4:52 PM EDT Clinical Goal(s): Patient will ambulate in the lyn this shift. (10/17/24 0700) Possible barriers to meeting goal(s)/advancing plan of care: post op, pain Stability of the patient: Moderately stable - low risk of patient condition declining or worsening Summary regarding today's goal(s): Met: Pt ambulated in lyn multiple times this shift. Recommendations: Continue pain management and encourage ambulation. * Progress Notes - Post-Op Global - Cora Gutierrez MD - 10/17/2024 9:03 AM EDT PROGRESS NOTE - General Surgery [facility] [address] Name: Peter Borjas Location: [facility] [id number] Date: 10/17/2024 Time: 9:04 AM DIAGNOSIS: Acute appendicitis PROCEDURE: laparoscopic appendectomy DATE OF SURGERY: 10/15/2024 POST OP DAY: 2 SUBJECTIVE: Patient states that he was unable to sleep overnight due to persistent back pain. He reports generalized soreness in his abdomen but states that overall pain is controlled with current pain regimen. He denied any nausea or vomiting. States that he is tolerating clear liquids. He is ambulating and voiding without difficulty. Having bowel movement. OBJECTIVE: Most Recent Vital Signs: BP: 113 mmHg/80 mmHg (10/17/24708) Pulse: 70 (10/17/24708) Resp: 16 (10/17/24708) Temp: 36.39 C (10/17/24708) Temp Summary: Temp Min: 36.2 °C (97.2 °F) Max: 37.6 °C (99.7 °F) SpO2: 94 % (10/17/24708) O2 flow rate: 2 L/MIN (10/16/24199) Supplemental O2 Delivery: Room Air, None (10/17/24829) Vital Signs Last 24 Hours: Systolic BP: Most Recent Systolic BP Av.3 mmHg Min: 111 mmHg Max: 128 mmHg Temperature: Most Recent Temperature Av.8 C Min: 36.22 C Max: 37.61 C Pulse: Pulse Av.3 Min: 63 Max: 84 Respirations: Resp Av.2 Min: 16 Max: 17 SpO2: SpO2 Av.5 % Min: 92 % Max: 96 % In / Out Past 24 Hrs: Intake/Output Summary (Last 24 hours) at 10/17/2024 0904 Last data filed at 10/17/2024 0639 Gross per 24 hour Intake 4055.47 ml Output 40 ml Net 4015.47 ml Physical Exam: Constitutional: no acute distress CV: normal heart sounds Chest: normal respiratory effort Surgical site: No signs of infection and healing well Neuro: alert, oriented to person, place, and time Psych: normal mood and affect, judgement normal, memory normal LABS: Labs reviewed as indicated below: Lab results within last 7 days (see chart for full results) Units 10/17/24 0513 10/16/24 0438 10/15/24 0748 SODIUM mmol/L 142 138 140 POTASSIUM mmol/L 4.0 4.1 3.6 CHLORIDE mmol/L 108* 103 105 CO2 mmol/L 26 26 23 BUN mg/dL 10 9 7 CREATININE mg/dL 1.0 1.0 1.1 Lab results within last 7 days (see chart for full results) Units 10/17/24 0512 10/16/24 0438 10/15/24 0748 HGB g/dL 10.7* 11.5* 12.2* HCT % 32.7* 35.0* 37.1* WBC K/uL 12.21* 12.18* 9.33 PLT K/uL 235 187 195 IMAGING: No imaging results in the last 24 hours Sutures/eric to be removed?: patient to go home with eric/stitches Central line to be removed or continued?: patient does not have central venous access Current DVT/PE prophylaxis is?: anti-thrombotic stockings (ALOK hose) Current stress ulcer prophylaxis is?: diet by mouth IMPRESSION: Principal Problem: Acute appendicitis with localized peritonitis, without perforation or abscess Resolved Problems: * No resolved hospital problems. * This is a 44-year-old male admitted for acute appendicitis. He is status post laparoscopic appendectomy following appendix rupture with peritonitis. Electrolytes within normal limits. Has leukocytosis but remains afebrile. PLAN: -advanced to fiber restricted diet -DC IV fluids -continues Zosyn -p.r.n. pain and nausea medication Patient discussed with Dr. Buddy MD and plan of care was formulated. Please refer to the attending attestation for additional recommendations. Cora Gutierrez MD PGY-1 Resident, Family Medicine [facility] Residency [facility] Cosigned by Manas Goodwin MD at 10/17/2024 11:56 AM EDT Associated attestation - Manas Goodwin MD - 10/17/2024 11:56 AM EDT I saw and evaluated the patient 10/17/2024. I have reviewed the resident/fellow physician note and agree. * Care Plan - Mamie Perez RN - 10/17/2024 5:14 AM EDT Clinical Goal(s): Pt will continue to ambulate in the lyn through the shift (10/16/241948) Possible barriers to meeting goal(s)/advancing plan of care: post lap appy Stability of the patient: Moderately stable - low risk of patient condition declining or worsening Summary regarding today's goal(s): Met: Pt ambulated multiple laps through the shift Recommendations: UOOB as tolerated, advance diet as tolerated * Care Plan - Lucero Huber RN - 10/16/2024 4:18 PM EDT Clinical Goal(s): Pt will report adequate pain control rating a 4/10 or below during this shift (10/16/24 0851) Possible barriers to meeting goal(s)/advancing plan of care: recent OR procedure, current diagnosis, inadequate pain medication Stability of the patient: Moderately stable - low risk of patient condition declining or worsening Summary regarding today's goal(s): Met: Pt was able to report adequate pain control rating below a 4/10 during this shift Recommendations: Encourage OOB with meals, treat pain per MAR, encourage adequate meal intake * Care Plan - Mamie Perez RN - 10/16/2024 5:07 AM EDT Clinical Goal(s): Pt pain will remain 5/10 or less through the night (10/15/242115) Possible barriers to meeting goal(s)/advancing plan of care: post lap appy Stability of the patient: Moderately stable - low risk of patient condition declining or worsening Summary regarding today's goal(s): Met: Pt pain remained 5/10 or less with scheduled and PRN pain medications Recommendations: UOOB as tolerated, advance diet as tolerated, IV ABX * Care Plan - Kierra Lindsey RN - 10/15/2024 5:38 AM EDT Clinical Goal(s): Pt.'s temp will be WNL bfore the end of this shift (10/14/241944) Possible barriers to meeting goal(s)/advancing plan of care: admitting diagnosis Stability of the patient: Moderately unstable - medium risk of patient condition declining or worsening Summary regarding today's goal(s): Met: Pt's temp has been less than 100F since 2300. Tylenol and Toradol given alternately. Pt. Pain worsened last evening requiring more pain medications that were effective in reducing his pain Recommendations: Continue to assess temp and administer antipyretics. Pain control. * Care Plan - Tasia Metz RN - 10/14/2024 5:02 PM EDT Clinical Goal(s): Pts pain and nausea wiell remain controlled with pain medication this shift (10/14/24811) Possible barriers to meeting goal(s)/advancing plan of care: acute appendicitis Stability of the patient: Moderately stable - low risk of patient condition declining or worsening Summary regarding today's goal(s): Met: Pts nausea and pain have been controlled with medications Recommendations: Monitor pain, adhere to diet, monitor VS, give medications per order * Care Plan - Kierra Lindsey RN - 10/14/2024 6:36 AM EDT Clinical Goal(s): Pt. will report adequate pain and nausea control this shift (10/13/242119) Possible barriers to meeting goal(s)/advancing plan of care: admitting diagnosis, refusing surgicalintervention & wanting to try conservative/holistic approach Stability of the patient: Moderately stable - low risk of patient condition declining or worsening Summary regarding today's goal(s): Met: Pt. Reports improvement in pain this AM with no complaints of nausea Recommendations: Continue to assess for pain and nausea and administer medications per MAR, continue current plan of care * Pt Handout (on AVS) - Ronnie Everett RN - 10/13/2024 11:20 PM EDT Images from the original note were not included. [id number] Abdominal Pain Abdominal pain means pain in the stomach or belly area. Everyone has this kind of pain from time totime. In many cases, it goes away on its own. Some types of abdominal pain can be from a serious problem. One example is appendicitis. So it?s important to know when to get help. Causes of abdominal pain There are many causes of abdominal pain. Common causes in adults include: · Constipation, diarrhea, or gas · Stomach and intestine inflammation from a virus or bacteria (gastroenteritis) · Stomach acid flowing back up into the esophagus (acid reflux) · Severe acid reflux, called gastroesophageal reflux disease (GERD) · A sore in the lining of the stomach or small intestine (peptic ulcer) · Inflammation of the gallbladder, liver, or pancreas · Gallstones or kidney stones · Appendicitis · Intestinal blockage · An internal organ pushing through a muscle or other tissue (hernia) · Urinary tract infections · Menstrual cramps · Fibroids in the uterus · Ovarian cysts · Pelvic inflammatory disease in women · Endometriosis · Crohn's disease · Ulcerative colitis · Irritable bowel syndrome Diagnosing the cause of abdominal pain Your healthcare provider will give you a physical exam. This is to help find the cause of your pain. If needed, you'll have tests. Belly pain has many possible causes. So it may take a little time tofind the reason for your pain. Give details about the type of pain you feel. Tell your healthcare provider if it's sharp or dull. Tell them where and when you feel the pain. Tell them what makes it better or worse. And tell them if you have other symptoms such as: · Fever · Tiredness · Upset stomach (nausea) · Vomiting · Changes in bathroom habits · Blood in the stool or black, tarry stool · Unexpected weight loss Tell your healthcare provider: · If you have a family history of stomach or intestinal problems or cancer · About your alcohol use and any illegal drug use · All medicines you take, both prescription and [id number] · What vitamins, herbs, and other supplements you take Treating abdominal pain Some causes of pain need emergency medical care right away. These include appendicitis or a bowel blockage. Other problems can be treated with rest, fluids, or medicines. Your healthcare provider cangive you instructions. You may need treatment or self-care based on what's causing your pain. If you have vomiting or diarrhea, sip water or other clear fluids. When you're ready to eat solid foods again, start lightly. Eat small amounts of [id number], low-fat foods. These include applesauce, toast, or crackers. Call 911 Call 911 right away if you: · Can?t pass stool and are vomiting · Are vomiting blood · Have bloody diarrhea or black, tarry diarrhea · Have chest, neck, or shoulder pain · Feel like you might pass out (faint) · Have pain in your shoulder blades and nausea · Have sudden, severe belly pain · Have new, severe pain unlike any you've felt before · Have a belly that is rigid, hard, and hurts to touch When to call the healthcare provider Call your healthcare provider or seek medical care right away if you have any of these: · Pain that's worse or not getting better · Bloating that's worse or not getting better · Diarrhea that's worse or not getting better · Fever of 100.4°F (38°C) or higher, or as advised · Weight loss for no reason · Continued lack of appetite · Blood in your stool How to prevent abdominal pain Here are some tips to help prevent abdominal pain: · Eat smaller amounts of food at each meal. · >Don't eat greasy, fried, or other high-fat foods. · Don't eat foods that give you gas. · Exercise regularly. · Drink plenty of fluids. To help prevent GERD symptoms: · Quit smoking. · Reduce alcohol and foods that increase stomach acid. · Don't use aspirin or nonsteroidal anti-inflammatory drugs (NSAIDs). · Lose excess weight. · Finish eating at least 2 hours before you go to bed or lie down. · Raise the head of your bed. Last Reviewed Date: 2023 00:00:00 © [employer]. All rights reserved. This information is not intended as a substitute for professional medical care. Always follow your healthcare professional's instructions. * Medical Necessity - Oleg Trevino, Utilization Review Staff - 10/13/2024 8:52 PM EDT AdmissionCare Guideline: Abdominal Pain (Undiagnosed), Observation Based on the indications selected for the patient, the bed status of Observation was determined to be MET The following indications were selected as present at the time of evaluation of the patient: - Observation Care Admission Criteria - Observation care is indicated for 1 or more of the following: - Suspected condition requiring continued monitoring or testing beyond emergency department care (eg, ectopic , appendicitis, bowel ischemia) Additional Information: Acute appendicitis with localized peritonitis AdmissionCare documentation entered by: Oleg Trevino [facility], 28th edition, Copyright © [address] [facility] Hospital[facility] All Rights Reserved. [id number] Solely for purpose of utilization review and payment; not a diagnostic tool * ED Ob/Gyn Nurse Note - Yashira Hoang RN - 10/13/2024 7:30 PM EDT Pt sent in from [facility] for concerns of appendicitis. Pt reports for over the past 30 hours he has been experiencing centralized lower abdominal pain. Reports the pain does not radiate anywhere. Denies any urinary symptoms. Denies any issues with his bowels. +nausea but denies any vomiting. Denies any fevers or chills. 20g IV placed L AC. Labs drawn and sent. Call walls within reach. documented in this encounter Plan of Treatment Upcoming Encounters Date Type Department Care Team (Late st Contact Info) Description 11/04/2024 1:15 PM EDT Office Visit General Surgery Alphonso Santos [address] [phone] Manas Goodwin MD [address] [phone] Pending Results Name Type Priority Associated Diagnoses Date /Time CULTURE, WOUND, DEEP, AEROBIC AND ANAEROBIC Lab Routine Acute appendicitis, unspecified acute appendicitis type 10/15/2024 7:14 PM EDT SURGICAL PATHOLOGY Pathology Routine Acute appendicitis, unspecified acute appendicitis type 10/15/2024 7:08 PM EDT Scheduled Orders Name Type Priority Associated Diagnoses Orde r Schedule SURGICAL PATHOLOGY Pathology Routine Acute appendicitis, unspecified acute appendicitis type Release Upon Ordering for 1 Occurrences starting 10/15/2024, 1 completed Health Maintenance Due Date Last Done Comments Lipid Panel 1978 Depression Screening 1990 HIV Screening 1993 Hepatitis C Screening 1996 Hepatitis B Vaccine (1 of 3 - 19+ 3-dose series) 1997 Cologuard 2023 Colonoscopy 2023 Colorectal Cancer Screening 2023 Fecal Occult Blood Test 2023 Sigmoidoscopy 2023 COVID-19 Vaccine ( - season) 2024 Influenza Vaccine (FLU shot) (Season Ended) 2025 DTap/Tdap Vaccines (2 - Td or Tdap) 09/05/2027 09/04/2017 Diabetes Screening 10/20/2027 10/19/2024, 0 10/18/2024, 10/17/2024, Additional history exists HPV (Gardasil) Vaccine Aged Out No lo nger eligible based on patient's age to complete this topic MENINGOCOCCAL (MENACTRA/MENVEO) Aged Out No longer eligible based on patient's age to complete this topic Meningitis B Vaccine (Bexsero/Trumemba) Aged Out No longer eligible based on patient's age to complete this topic Pneumococcal Vaccine: Pediatrics (0 to 5 Years) and At-Risk Patients (6 to 18 Years and 19+ Years) Aged Out No longer eligib le based on patient's age to complete this topic documented as of this encounter Medical Devices Not on filedocumented as of this encounter Procedures Procedure Name Priority Date/Time Associated Diagnosis Comments BASIC METABOLIC PANEL Routine 10/19/2024 4:31 AM EDT CBC Routine 10/19/2024 4:31 AM EDT BASIC METABOLIC PANEL Routine 10/18/2024 4:32 AM EDT CBC Routine 10/18/2024 4:32 AM EDT BASIC METABOLIC PANEL Routine 10/17/2024 5:13 AM EDT CBC Routine 10/17/2024 5:12 AM EDT BASIC METABOLIC PANEL Routine 10/16/2024 4:38 AM EDT CBC Routine 10/16/2024 4:38 AM EDT CULTURE, WOUND, DEEP, AEROBIC AND ANAEROBIC Routine 10/15/2024 7:14 PM EDT Acute appendicitis, unspecified acute appendicitis type LAPAROSCOPY;APPENDECT ELLIE 10/15/2024 6:05 PM EDT Acute appendicitis, unspecified acute appendicitis type GLUCOSE METER, POINT OF CARE ZULAY 10/15/2024 5:[address] ABD/PELVIS W IV AND W ORAL CONTRAST Routine 10/15/2024 12:32 PM EDT COMPREHENSIVE METABOLIC PANEL Routine 10/15/2024 7:48 AM EDT CBC Routine 10/15/2024 7:48 AM EDT BASIC METABOLIC PANEL Routine 10/14/2024 5:30 AM EDT CBC Routine 10/14/2024 5:30 AM EDT DIFFERENTIAL, AUTOMATED STAT 10/13/2024 7:33 PM EDT COMPREHENSIVE METABOLIC PANEL STAT 10/13/2024 7:33 PM EDT CBC STAT 10/13/2024 7:33 PM EDT PT INR STAT 10/13/2024 7:33 PM EDT LACTATE Routine 10/13/2024 7:33 PM EDT CBC STAT 10/13/2024 7:33 PM EDT documented in this encounter Results * BASIC METABOLIC PANEL (10/19/2024 4:31 AM EDT) BUN 9 6 - 20 mg/dL 10/19/2024 5:12 AM EDT [facility] CREATININE 1.1 0.6 - 1.2 mg/dL 10/19/2024 5:12 AM EDT [facility] EGFR 87 >=60 mL/min 10/19/2024 5:12 AM EDT [facility] Comment:eGFR is calculated b ased on the CKD-EPI 2020 equation. SODIUM 139 135 - 146 mmol/L 10/19/2024 5:12 AM EDT [facility] POTASSIUM 3.6 3.5 - 5.1 mmol/L 10/19/2024 5:12 AM EDT [facility] CHLORIDE 105 98 - 107 mmol/L 10/19/2024 5:12 AM EDT [facility] CO2 25 22 - 32 mmol/L 10/19/2024 5:12 AM EDT [facility] ANION GAP 9 7 - 15 mmol/L 10/19/2024 5:12 AM EDT [facility] GLUCOSE 108 70 - 120 mg/dL 10/19/2024 5:12 AM EDT [facility] CALCIUM 9.4 8.4 - 10.2 mg/dL 10/19/2024 5:12 AM EDT [facility] Blood Venous blood specimen / Unknown Venipuncture / Unknown 10/19/2024 4:31 AM EDT 10/19/2024 4:40 AM EDT us Manas Goodwin MD LAB BLOOD ORDERABLES F inal Result [facility] [address] [place] [address] * (ABNORMAL) CBC (10/19/2024 4:31 AM EDT) WBC 12.27(H) 4.00 - 10.80 K/uL 10/19/2024 4:42 AM EDT [facility] RBC 3.92 4.50 - 5.25 M/uL 10/19/2024 4:42 AM EDT [facility] HGB 12.2(L) 14.0 - 16.8 g/dL 10/19/2024 4:42 AM EDT [facility] HCT 36.0(L) 40.0 - 48.4 % 10/19/2024 4:42 AM EDT [facility] MCV 91.8 82.0 - 99.5 fL 10/19/2024 4:42 AM EDT [facility] MCH 31.1 27.0 - 34.0 pg 10/19/2024 4:42 AM EDT [facility] MCHC 33.9 32.0 - 36.0 g/dL 10/19/2024 4:42 AM EDT [facility] RDW 13.1 11.5 - 15.5 % 10/19/2024 4:42 AM EDT [facility] PLT 270 140 - 400 K/uL 10/19/2024 4:42 AM EDT [facility] MPV 9.4 6.6 - 11.1 fL 10/19/2024 4:42 AM EDT [facility] NRBCs 0 <=0 /100 WBCs 10/19/2024 4:42 AM EDT [facility] Blood Venous blood specimen / Unknown Venipuncture / Unknown 10/19/2024 4:31 AM EDT 10/19/2024 4:40 AM EDT us Manas Goodwin MD LAB BLOOD ORDERABLES F inal Result [facility] [address] [place] [address] * BASIC METABOLIC PANEL (10/18/2024 4:32 AM EDT) BUN 9 6 - 20 mg/dL 10/18/2024 5:08 AM EDT [facility] CREATININE 1.1 0.6 - 1.2 mg/dL 10/18/2024 5:08 AM EDT [facility] EGFR 85 >=60 mL/min 10/18/2024 5:08 AM EDT [facility] Comment:eGFR is calculated b ased on the CKD-EPI 2020 equation. SODIUM 139 135 - 146 mmol/L 10/18/2024 5:08 AM EDT [facility] POTASSIUM 3.7 3.5 - 5.1 mmol/L 10/18/2024 5:08 AM EDT [facility] CHLORIDE 105 98 - 107 mmol/L 10/18/2024 5:08 AM EDT [facility] CO2 24 22 - 32 mmol/L 10/18/2024 5:08 AM EDT [facility] ANION GAP 10 7 - 15 mmol/L 10/18/2024 5:08 AM EDT [facility] GLUCOSE 117 70 - 120 mg/dL 10/18/2024 5:08 AM EDT [facility] CALCIUM 8.7 8.4 - 10.2 mg/dL 10/18/2024 5:08 AM EDT [facility] Blood Venous blood specimen / Unknown Venipuncture / Unknown 10/18/2024 4:32 AM EDT 10/18/2024 4:45 AM EDT us Manas Goodwin MD LAB BLOOD ORDERABLES F inal Result LABORATORY [address] [address] * (ABNORMAL) CBC (10/18/2024 4:32 AM EDT) WBC 11.42(H) 4.00 - 10.80 K/uL 10/18/2024 4:48 AM EDT [facility] RBC 3.91 4.50 - 5.25 M/uL 10/18/2024 4:48 AM EDT [facility] HGB 11.8(L) 14.0 - 16.8 g/dL 10/18/2024 4:48 AM EDT [facility] HCT 36.3(L) 40.0 - 48.4 % 10/18/2024 4:48 AM EDT [facility] MCV 92.8 82.0 - 99.5 fL 10/18/2024 4:48 AM EDT [facility] MCH 30.2 27.0 - 34.0 pg 10/18/2024 4:48 AM EDT [facility] MCHC 32.5 32.0 - 36.0 g/dL 10/18/2024 4:48 AM EDT [facility] RDW 13.2 11.5 - 15.5 % 10/18/2024 4:48 AM EDT [facility] PLT 279 140 - 400 K/uL 10/18/2024 4:48 AM EDT [facility] MPV 9.7 6.6 - 11.1 fL 10/18/2024 4:48 AM EDT [facility] NRBCs 0 <=0 /100 WBCs 10/18/2024 4:48 AM EDT [facility] Blood Venous blood specimen / Unknown Venipuncture / Unknown 10/18/2024 4:32 AM EDT 10/18/2024 4:45 AM EDT Manas Goodwin MD LAB BLOOD ORDERABLES F inal Result [facility] [address] [place] [address] * (ABNORMAL) BASIC METABOLIC PANEL (10/17/2024 5:13 AM EDT) BUN 10 6 - 20 mg/dL 10/17/2024 6:04 AM EDT LABORATORY [facility] CREATININE 1.0 0.6 - 1.2 mg/dL 10/17/2024 6:04 AM EDT LABORATORY [facility] EGFR >90 >=60 mL/min 10/17/2024 6:04 AM EDT LABORATORY [facility] Comment:eGFR is calculated b ased on the CKD-EPI 2020 equation. SODIUM 142 135 - 146 mmol/L 10/17/2024 6:04 AM EDT LAB[facility]ORY [facility] POTASSIUM 4.0 3.5 - 5.1 mmol/L 10/17/2024 6:04 AM EDT LABORATORY GL CHLORIDE 108(H) 98 - 107 mmol/L 10/17/2024 6:04 AM EDT [facility] CO2 26 22 - 32 mmol/L 10/17/2024 6:04 AM EDT [facility] ANION GAP 8 7 - 15 mmol/L 10/17/2024 6:04 AM EDT [facility] GLUCOSE 124(H) 70 - 120 mg/dL 10/17/2024 6:04 AM EDT [facility] CALCIUM 8.5 8.4 - 10.2 mg/dL 10/17/2024 6:04 AM EDT [facility] Blood Venous blood specimen / Unknown Venipuncture / Unknown 10/17/2024 5:13 AM EDT 10/17/2024 5:34 AM EDT us Manas Goodwin MD LAB BLOOD ORDERABLES F inal Result LABORATORY [address] [address] * (ABNORMAL) CBC (10/17/2024 5:12 AM EDT) Pathologist [facility] WBC 12.21(H) 4.00 - 10.80 K/uL 10/17/2024 5:42 AM EDT [facility] RBC 3.53 4.50 - 5.25 M/uL 10/17/2024 5:42 AM EDT [facility] HGB 10.7(L) 14.0 - 16.8 g/dL 10/17/2024 5:42 AM EDT [facility] HCT 32.7(L) 40.0 - 48.4 % 10/17/2024 5:42 AM EDT [facility] MCV 92.6 82.0 - 99.5 fL 10/17/2024 5:42 AM EDT [facility] MCH 30.3 27.0 - 34.0 pg 10/17/2024 5:42 AM EDT [facility] MCHC 32.7 32.0 - 36.0 g/dL 10/17/2024 5:42 AM EDT [facility] RDW 13.1 11.5 - 15.5 % 10/17/2024 5:42 AM EDT [facility] PLT 235 140 - 400 K/uL 10/17/2024 5:42 AM EDT [facility] MPV 10.0 6.6 - 11.1 fL 10/17/2024 5:42 AM EDT LABORATORY GL NRBCs 0 <=0 /100 WBCs 10/17/2024 5:42 AM EDT LAB[facility]ATORY [facility] Blood Venous blood specimen / Unknown Venipuncture / Unknown 10/17/2024 5:12 AM EDT 10/17/2024 5:34 AM EDT us Manas Goodwin MD LAB BLOOD ORDERABLES F inal Result [facility] [address] [place] [address] * (ABNORMAL) BASIC METABOLIC PANEL (10/16/2024 4:38 AM EDT) BUN 9 6 - 20 mg/dL 10/16/2024 5:28 AM EDT LABORATORY GL CREATININE 1.0 0.6 - 1.2 mg/dL 10/16/2024 5:28 AM EDT LABORATORY GL EGFR >90 >=60 mL/min 10/16/2024 5:28 AM EDT LABORATORY GL Comment:eGFR is calculated b ased on the CKD-EPI 2020 equation. SODIUM 138 135 - 146 mmol/L 10/16/2024 5:28 AM EDT [facility] POTASSIUM 4.1 3.5 - 5.1 mmol/L 10/16/2024 5:28 AM EDT [facility] CHLORIDE 103 98 - 107 mmol/L 10/16/2024 5:28 AM EDT [facility] CO2 26 22 - 32 mmol/L 10/16/2024 5:28 AM EDT [facility] ANION GAP 9 7 - 15 mmol/L 10/16/2024 5:28 AM EDT [facility] GLUCOSE 153(H) 70 - 120 mg/dL 10/16/2024 5:28 AM EDT [facility] CALCIUM 8.2(L) 8.4 - 10.2 mg/dL 10/16/2024 5:28 AM EDT LAB[facility]ATORY [facility] Blood Venous blood specimen / Unknown Venipuncture / Unknown 10/16/2024 4:38 AM EDT 10/16/2024 5:02 AM EDT Manas Goodwin MD LAB BLOOD ORDERABLES F inal Result Performing Organization Address City/[facility]/ZIP Co de Phone Number LABORATORY [address] [phone] * (ABNORMAL) CBC (10/16/2024 4:38 AM EDT) [facility] Signature WBC 12.18(H) 4.00 - 10.80 K/uL 10/16/2024 5:06 AM EDT LAB[facility] RBC 3.80 4.50 - 5.25 M/uL 10/16/2024 5:06 AM EDT [facility] HGB 11.5(L) 14.0 - 16.8 g/dL 10/16/2024 5:06 AM EDT LAB[facility] HCT 35.0(L) 40.0 - 48.4 % 10/16/2024 5:06 AM EDT [facility] MCV 92.1 82.0 - 99.5 fL 10/16/2024 5:06 AM EDT [facility] MCH 30.3 27.0 - 34.0 pg 10/16/2024 5:06 AM EDT [facility] MCHC 32.9 32.0 - 36.0 g/dL 10/16/2024 5:06 AM EDT [facility] RDW 13.0 11.5 - 15.5 % 10/16/2024 5:06 AM EDT LAB[facility] PLT 187 140 - 400 K/uL 10/16/2024 5:06 AM EDT [facility] MPV 10.2 6.6 - 11.1 fL 10/16/2024 5:06 AM EDT [facility] NRBCs 0 <=0 /100 WBCs 10/16/2024 5:06 AM EDT [facility] Blood Venous blood specimen / Unknown Venipuncture / Unknown 10/16/2024 4:38 AM EDT 10/16/2024 5:03 AM EDT Manas Goodwin MD LAB BLOOD ORDERABLES F inal Result Performing Organization Address City/[facility]/ZIP Co de Phone Number LABORATORY [address] [place] [address] * GLUCOSE METER, POINT OF CARE (10/15/2024 5:31 PM EDT) Glucose - POCT 111 70 - 120 mg/dL 10/15/2024 5:34 PM EDT [facility] Blood Whole blood specimen / Unknown 10/15/2024 5:31 PM EDT 10/15/2024 5:34 PM EDT us Manas Goodwin MD LAB POINT OF C ARE TEST DOCKED DEVICE UNSOLICITED RESULTS Final Result [facility] [address] [place] [address] * CT ABD/PELVIS W IV AND W ORAL CONTRAST (10/15/2024 12:32 PM EDT) Anatomical Region Laterality Modality Body, Abdomen, Pelvis Computed T omography 10/15/2024 12:2 4 PM EDT Addenda Addendum by Juan Ramon Grissom MD on 10/15/2024 1:21 PM EDT COMMENT: THIS REPORT CONTAINS FINDINGS THAT MAY BE CRITICAL TO PATIENT CARE. The exam findings were verbally communicated by me to RN Aline Law via telephone conference at 1:20 PM EDT on 10/15/2024. The findings were acknowledged and understood. THIS DOCUMENT HAS BEEN ELECTRONICALLY SIGNED BY JUAN RAMON GRISSOM MD Impressions 10/15/2024 12:47 PM EDT IMPRESSION: 1. Findings suggest appendicitis. This is associated with small abdominal ascites and free pelvic fluid. 2. Consolidation in the right lower lobe. This could represent dependent atelectasis or early pneumonic process. Imaging follow-up until resolution is advised. THIS DOCUMENT HAS BEEN ELECTRONICALLY SIGNED BY JUAN RAMON GRISSOM MD Narrative 10/15/2024 12:47 PM EDT PROCEDURE INFORMATION: Exam: CT Abdomen And Pelvis With Contrast Exam date and time: 10/15/2024 12:24 PM Age: 44 years old Clinical indication: Abdominal pain; Flank; Right lower quadrant (rlq); Additional info: Appendicitis; Evaluate for progression of disease TECHNIQUE: Imaging protocol: Computed tomography of the abdomen and pelvis with contrast. Radiation optimization: All CT scans at this facility use at least one of these dose optimization techniques: automated exposure control; mA and/or kV adjustment per patient size (includes targeted exams where dose is matched to clinical indication); or iterative reconstruction. Contrast material: ISOVUE; Contrast volume: 80 ml; Contrast route: INTRAVENOUS (IV); COMPARISON: No relevant prior studies available. FINDINGS: Lungs: Consolidation in the right lower lobe. Dependent atelectasis in the left lower lobe. Liver: Fluid is seen in the aruna hepatis area. Gallbladder and biliary ducts: Normal. No calcified stones. No ductal dilation. Pancreas: Normal. No ductal dilation. Spleen: Normal. No splenomegaly. Adrenal glands: Normal. No mass. Kidneys and ureters: Normal. No hydronephrosis. Stomach and bowel: There is cecal wall thickening. Appendix: The appendix is dilated measuring 9 mm. There is a 8 mm appendicolith at the appendiceal base. Intraperitoneal space: Small free pelvic fluid. Abdominal ascites seen. Vasculature: Unremarkable. No abdominal aortic aneurysm. Lymph nodes: Unremarkable. No enlarged lymph nodes. Urinary bladder: Unremarkable as visualized. Reproductive: Unremarkable as visualized. Bones/joints: Unremarkable. No acute fracture. Soft tissues: Unremarkable. Procedure Note Juan Ramon Grissom MD - 10/15/2024 PROCEDURE INFORMATION: Exam: CT Abdomen And Pelvis With Contrast Exam date and time: 10/15/2024 12:24 PM Age: 44 years old Clinical indication: Abdominal pain; Flank; Right lower quadrant (rlq); Additional info: Appendicitis; Evaluate for progression of disease TECHNIQUE: Imaging protocol: Computed tomography of the abdomen and pelvis withcontrast. Radiation optimization: All CT scans at this facility use at least one ofthese dose optimization techniques: automated exposure control; mA and/or kV adjustment per patient size (includes targeted exams where dose is matchedto clinical indication); or iterative reconstruction. Contrast material: ISOVUE; Contrast volume: 80 ml; Contrast route:INTRAVENOUS (IV); COMPARISON: No relevant prior studies available. FINDINGS: Lungs: Consolidation in the right lower lobe. Dependent atelectasis in theleft lower lobe. Liver: Fluid is seen in the aruna hepatis area. Gallbladder and biliary ducts: Normal. No calcified stones. No ductaldilation. Pancreas: Normal. No ductal dilation. Spleen: Normal. No splenomegaly. Adrenal glands: Normal. No mass. Kidneys and ureters: Normal. No hydronephrosis. Stomach and bowel: There is cecal wall thickening. Appendix: The appendix is dilated measuring 9 mm. There is a 8 mmappendicolith at the appendiceal base. Intraperitoneal space: Small free pelvic fluid. Abdominal ascites seen. Vasculature: Unremarkable. No abdominal aortic aneurysm. Lymph nodes: Unremarkable. No enlarged lymph nodes. Urinary bladder: Unremarkable as visualized. Reproductive: Unremarkable as visualized. Bones/joints: Unremarkable. No acute fracture. Soft tissues: Unremarkable. IMPRESSION IMPRESSION: 1. Findings suggest appendicitis. This is associated with smallabdominal ascites and free pelvic fluid. 2. Consolidation in the right lower lobe. This could represent dependent atelectasis or early pneumonic process. Imaging follow-up until resolutionis advised. THIS DOCUMENT HAS BEEN ELECTRONICALLY SIGNED BY JUAN RAMON GRISSOM MD us Manas Goodwin MD RAD CT Edited Result - Final * (ABNORMAL) COMPREHENSIVE METABOLIC PANEL (10/15/2024 7:48 AM EDT) BUN 7 6 - 20 mg/dL 10/15/2024 8:41 AM EDT [facility] CREATININE 1.1 0.6 - 1.2 mg/dL 10/15/2024 8:41 AM EDT [facility] EGFR 81 >=60 mL/min 10/15/2024 8:41 AM EDT [facility] Comment:eGFR is calculated b ased on the CKD-EPI 2020 equation. SODIUM 140 135 - 146 mmol/L 10/15/2024 8:41 AM EDT [facility] POTASSIUM 3.6 3.5 - 5.1 mmol/L 10/15/2024 8:41 AM EDT [facility] CHLORIDE 105 98 - 107 mmol/L 10/15/2024 8:41 AM EDT [facility] CO2 23 22 - 32 mmol/L 10/15/2024 8:41 AM EDT [facility] ANION GAP 12 7 - 15 mmol/L 10/15/2024 8:41 AM EDT [facility] GLUCOSE 117 70 - 120 mg/dL 10/15/2024 8:41 AM EDT [facility] Albumin 3.1(L) 3.8 - 5.0 g/dL 10/15/2024 8:41 AM EDT [facility] AST 33 10 - 50 U/L 10/15/2024 8:41 AM EDT [facility] Alkaline Phosphatase 52 35 - 130 U/L 10/15/2024 8:41 AM EDT [facility] Bilirubin, Total 1.7(H) <=1.2 mg/dL 10/15/2024 8:41 AM EDT [facility] CALCIUM 8.2(L) 8.4 - 10.2 mg/dL 10/15/2024 8:41 AM EDT [facility] Protein 5.4(L) 6.0 - 8.3 g/dL 10/15/2024 8:41 AM EDT [facility] ALT 33 10 - 50 U/L 10/15/2024 8:41 AM EDT [facility] Blood Venous blood specimen / Unknown Venipuncture / Unknown 10/15/2024 7:48 AM EDT 10/15/2024 8:08 AM EDT us Cora Gutierrez MD LAB BLOOD ORDERABLES Fi nal Result LABORATORY [address] [address] * (ABNORMAL) CBC (10/15/2024 7:48 AM EDT) WBC 9.33 4.00 - 10.80 K/uL 10/15/2024 8:14 AM EDT [facility] RBC 4.01 4.50 - 5.25 M/uL 10/15/2024 8:14 AM EDT [facility] HGB 12.2(L) 14.0 - 16.8 g/dL 10/15/2024 8:14 AM EDT [facility] HCT 37.1(L) 40.0 - 48.4 % 10/15/2024 8:14 AM EDT [facility] MCV 92.5 82.0 - 99.5 fL 10/15/2024 8:14 AM EDT [facility] MCH 30.4 27.0 - 34.0 pg 10/15/2024 8:14 AM EDT [facility] MCHC 32.9 32.0 - 36.0 g/dL 10/15/2024 8:14 AM EDT [facility] RDW 12.7 11.5 - 15.5 % 10/15/2024 8:14 AM EDT [facility] PLT 195 140 - 400 K/uL 10/15/2024 8:14 AM EDT [facility] MPV 10.1 6.6 - 11.1 fL 10/15/2024 8:14 AM EDT [facility] NRBCs 0 <=0 /100 WBCs 10/15/2024 8:14 AM EDT [facility] Blood Venous blood specimen / Unknown Venipuncture / Unknown 10/15/2024 7:48 AM EDT 10/15/2024 8:08 AM EDT us Cora Gutierrez MD LAB BLOOD ORDERABLES Fi nal Result LABORAT[facility] [address] [address] * (ABNORMAL) CBC (10/14/2024 5:30 AM EDT) WBC 15.16(H) 4.00 - 10.80 K/uL 10/14/2024 6:13 AM EDT [facility] RBC 4.20 4.50 - 5.25 M/uL 10/14/2024 6:13 AM EDT [facility] HGB 13.0(L) 14.0 - 16.8 g/dL 10/14/2024 6:13 AM EDT [facility] HCT 37.9(L) 40.0 - 48.4 % 10/14/2024 6:13 AM EDT [facility] MCV 90.2 82.0 - 99.5 fL 10/14/2024 6:13 AM EDT [facility] MCH 31.0 27.0 - 34.0 pg 10/14/2024 6:13 AM EDT [facility] MCHC 34.3 32.0 - 36.0 g/dL 10/14/2024 6:13 AM EDT [facility] RDW 12.6 11.5 - 15.5 % 10/14/2024 6:13 AM EDT [facility] PLT 218 140 - 400 K/uL 10/14/2024 6:13 AM EDT [facility] MPV 10.3 6.6 - 11.1 fL 10/14/2024 6:13 AM EDT [facility] NRBCs 0 <=0 /100 WBCs 10/14/2024 6:13 AM EDT [facility] Blood Venous blood specimen / Unknown Venipuncture / Unknown 10/14/2024 5:30 AM EDT 10/14/2024 6:07 AM EDT us Manas Goodwin MD LAB BLOOD ORDERABLES F inal Result [facility] [address] [place] [address] * BASIC METABOLIC PANEL (10/14/2024 5:30 AM EDT) BUN 11 6 - 20 mg/dL 10/14/2024 6:32 AM EDT [facility] CREATININE 1.2 0.6 - 1.2 mg/dL 10/14/2024 6:32 AM EDT [facility] EGFR 76 >=60 mL/min 10/14/2024 6:32 AM EDT [facility] Comment:eGFR is calculated b ased on the CKD-EPI 2020 equation. SODIUM 137 135 - 146 mmol/L 10/14/2024 6:32 AM EDT [facility] POTASSIUM 3.7 3.5 - 5.1 mmol/L 10/14/2024 6:32 AM EDT [facility] CHLORIDE 102 98 - 107 mmol/L 10/14/2024 6:32 AM EDT [facility] CO2 22 22 - 32 mmol/L 10/14/2024 6:32 AM EDT [facility] ANION GAP 13 7 - 15 mmol/L 10/14/2024 6:32 AM EDT [facility] GLUCOSE 117 70 - 120 mg/dL 10/14/2024 6:32 AM EDT [facility] CALCIUM 8.7 8.4 - 10.2 mg/dL 10/14/2024 6:32 AM EDT [facility] Blood Venous blood specimen / Unknown Venipuncture / Unknown 10/14/2024 5:30 AM EDT 10/14/2024 6:07 AM EDT us Manas Goodwin MD LAB BLOOD ORDERABLES F inal Result [facility] [address] [place] [address] * (ABNORMAL) DIFFERENTIAL, AUTOMATED (10/13/2024 7:33 PM EDT) Pathologist [facility] WBC 14.83(H) 4.00 - 10.80 K/uL 10/13/2024 7:39 PM EDT [facility] Neutrophils % 82.7(H) 40.0 - 75.0 % 10/13/2024 7:39 PM EDT [facility] Lymphocytes % 9.7(L) 18.0 - 42.0 % 10/13/2024 7:39 PM EDT [facility] Monocytes % 6.8 1.0 - 11.0 % 10/13/2024 7:39 PM EDT [facility] Eosinophils % 0.1 0.0 - 6.0 % 10/13/2024 7:39 PM EDT [facility] Basophils % 0.2 0.0 - 2.0 % 10/13/2024 7:39 PM EDT [facility] Immature Granulocytes % 0.5 0.0 - 2.0 % 10/13/2024 7:39 PM EDT [facility] Absolute Neutrophils 12.26(H) 1.80 - 7.70 K/uL 10/13/2024 7:39 PM EDT [facility] Absolute Lymphocytes 1.44 1.00 - 4.80 K/ul 10/13/2024 7:39 PM EDT [facility] Absolute Monocytes 1.01 0.00 - 1.10 K/uL 10/13/2024 7:39 PM EDT [facility] Absolute Eosinophils 0.01 0.00 - 0.70 K/uL 10/13/2024 7:39 PM EDT [facility] Absolute Basophils 0.03 0.00 - 0.20 K/uL 10/13/2024 7:39 PM EDT [facility] Absolute Immature Granulocytes 0.08 0.00 - 0.20 K/uL 10/13/2024 7:39 PM EDT [facility] Blood Venous blood specimen / Unknown Venipuncture / Unknown 10/13/2024 7:33 PM EDT 10/13/2024 7:37 PM EDT us Matt Duran DO LAB BLOOD ORDERABLES Final Resu lt [facility] [address] [place] [address] * (ABNORMAL) CBC (10/13/2024 7:33 PM EDT) WBC 14.83(H) 4.00 - 10.80 K/uL 10/13/2024 7:39 PM EDT [facility] RBC 4.95 4.50 - 5.25 M/uL 10/13/2024 7:39 PM EDT [facility] HGB 15.1 14.0 - 16.8 g/dL 10/13/2024 7:39 PM EDT [facility] HCT 45.3 40.0 - 48.4 % 10/13/2024 7:39 PM EDT [facility] MCV 91.5 82.0 - 99.5 fL 10/13/2024 7:39 PM EDT [facility] MCH 30.5 27.0 - 34.0 pg 10/13/2024 7:39 PM EDT [facility] MCHC 33.3 32.0 - 36.0 g/dL 10/13/2024 7:39 PM EDT [facility] RDW 12.5 11.5 - 15.5 % 10/13/2024 7:39 PM EDT [facility] PLT 247 140 - 400 K/uL 10/13/2024 7:39 PM EDT [facility] MPV 9.7 6.6 - 11.1 fL 10/13/2024 7:39 PM EDT [facility] NRBCs 0 <=0 /100 WBCs 10/13/2024 7:39 PM EDT [facility] Blood Venous blood specimen / Unknown Venipuncture / Unknown 10/13/2024 7:33 PM EDT 10/13/2024 7:37 PM EDT us Matt Hornerkeyon DO LAB BLOOD ORDERABLES Final Resu lt Performing Organization Address City/[facility]/ZIP Co de Phone Number LABORATORY [address] [phone] * LACTATE (10/13/2024 7:33 PM EDT) Lactate 1.6 0.4 - 2.0 mmol/L 10/13/2024 7:53 PM EDT [facility] Blood Venous blood specimen / Unknown Venipuncture / Unknown 10/13/2024 7:33 PM EDT 10/13/2024 7:37 PM EDT us Matt Duran DO LAB BLOOD ORDERABLES Final Resu lt Performing Organization Address [facility] Co de Phone Number LABORATORY [address] [address] * PT INR (10/13/2024 7:33 PM EDT) Prothrombin Time 14.1 11.6 - 15.2 seconds 10/13/2024 7:52 PM EDT [facility] INR 1.1 0.8 - 1.2 10/13/2024 7:52 PM EDT [facility] Blood Venous blood specimen / Unknown Venipuncture / Unknown 10/13/2024 7:33 PM EDT 10/13/2024 7:36 PM EDT Narrative [facility] - 10/13/2024 7:52 PM EDT Warfarin Therapy INR: 2.0-3.0 conventional anticoagulation INR: 2.5-3.5 high intensity anticoagulation us Matt Duran DO LAB BLOOD ORDERABLES Final Resu lt Performing Organization Address City/[facility]/ZIP Co de Phone Number LABORATORY [address] [address] * (ABNORMAL) COMPREHENSIVE METABOLIC PANEL (10/13/2024 7:33 PM EDT) Pathologist [facility] BUN 12 6 - 20 mg/dL 10/13/2024 7:57 PM EDT [facility] CREATININE 1.1 0.6 - 1.2 mg/dL 10/13/2024 7:57 PM EDT [facility] EGFR 88 >=60 mL/min 10/13/2024 7:57 PM EDT [facility] Comment:eGFR is calculated b ased on the CKD-EPI 2020 equation. SODIUM 138 135 - 146 mmol/L 10/13/2024 7:57 PM EDT [facility] POTASSIUM 4.3 3.5 - 5.1 mmol/L 10/13/2024 7:57 PM EDT [facility] CHLORIDE 100 98 - 107 mmol/L 10/13/2024 7:57 PM EDT [facility] CO2 23 22 - 32 mmol/L 10/13/2024 7:57 PM EDT [facility] ANION GAP 15 7 - 15 mmol/L 10/13/2024 7:57 PM EDT [facility] GLUCOSE 134(H) 70 - 120 mg/dL 10/13/2024 7:57 PM EDT [facility] Albumin 4.5 3.8 - 5.0 g/dL 10/13/2024 7:57 PM EDT [facility] AST 30 10 - 50 U/L 10/13/2024 7:57 PM EDT [facility] Alkaline Phosphatase 62 35 - 130 U/L 10/13/2024 7:57 PM EDT [facility] Bilirubin, Total 1.2 <=1.2 mg/dL 10/13/2024 7:57 PM EDT [facility] CALCIUM 9.2 8.4 - 10.2 mg/dL 10/13/2024 7:57 PM EDT [facility] Protein 7.7 6.0 - 8.3 g/dL 10/13/2024 7:57 PM EDT [facility] ALT 22 10 - 50 U/L 10/13/2024 7:57 PM EDT [facility] Blood Venous blood specimen / Unknown Venipuncture / Unknown 10/13/2024 7:33 PM EDT 10/13/2024 7:37 PM EDT us Matt Duran DO LAB BLOOD ORDERABLES Final Resu lt [facility] [address] [place] [address] documented in this encounter Visit Diagnoses Diagnosis Acute appendicitis with perforation and localized peritonitis, without abscess- Primary Acute appendicitis with localized peritonitis Acute appendicitis with peritoneal abscess Acute appendicitis, unspecified acute appendicitis type Acute appendicitis with perforation, localized peritonitis, and gangrene, without abscess documented in this encounter Administered Medications Inactive Administered Medications - up to 3 most recent administrations Medication Order MAR Action Action Date Dose Rate Site Acetaminophen (Tylenol) tab 650 mg 650 mg, Oral, Q6H, First dose on Sun10/14/24 at 0000, Until Discontinued, Maximum of 4 grams (4000 mg) per day. Given 10/18/2024 11:44 AM EDT 650 mg Given 10/18/2024 4:34 AM EDT 650 mg Given 10/17/2024 11:10 PM EDT 650 mg Acetaminophen (Tylenol) tab 650 mg 650 mg, Oral, Q6H PRN Fever >38C(100.5F), Starting on Sun10/18/24 at 1230, Until 10/19/24 at 1621, Maximum of 4 grams (4000 mg) per day. Carisoprodol (Soma) tab 350 mg 350 mg, Oral, Q6H, First dose on Sun10/18/24 at 1300, Until Discontinued Given 10/19/2024 12:01 PM EDT 350 mg Given 10/19/2024 5:57 AM EDT 350 mg Given 10/18/2024 11:03 PM EDT 350 mg chlorhexidine gluconate cloth 2 % pad 1 Pad 1 Pad, External, ONCE, On Sun10/15/24 at 1800, For 1 dose, As applicable by procedure for patients 2 months and older unless contraindicated., Pre-Op Given 10/15/2024 6:00 PM EDT 1 Pad Diatrizoate Meglumine & Sodium (Gastroview) oral 30 mL 30 mL, Oral, TWICE PER PROTOCOL, Starting on Sun10/15/24 at 1234, Until Sun10/15/24 at 2022, For 2 doses, Radiology Medication Routing (Non-IR) Given 10/15/2024 12:35 PM EDT 30 mL HYDROmorphone (Dilaudid) inj 0.5 mg 0.5 mg, IV Push, Q3H PRN Pain, Severe, Starting on Sun10/14/24 at 2343, Until Sun10/15/24 at 2022 Given 10/15/2024 1:08 PM EDT 0.5 mg Given 10/15/2024 8:57 AM EDT 0.5 mg Given 10/15/2024 2:23 AM EDT 0.5 mg HYDROmorphone (Dilaudid) inj 0.5 mg 0.5 mg, IV Push, Q3H PRN Pain, Breakthrough, Starting on Sun10/15/24 at 202, Until 10/19/24 at 1621 Iopamidol (Isovue 370) inj 80 mL 80 mL, Intravenous, ONCE, On Sun10/15/24 at 1315, For 1 dose, Radiology Medication Routing (Non-IR) Given 10/15/2024 12:32 PM EDT 80 mL Isolyte-S pH 7.4 infusion Intravenous, at 100 mL/hr, Plasma-LYTE 148, isolyte-S, and isolyte-S pH 7.4 are considered equivalent - including for MAR barcode scanning., CONTINUOUS, Starting on Sun10/13/24 at 2130, Until Sun10/17/24 at 0958 New Bag 10/17/2024 9:51 AM EDT 100 mL /hr Restarted 10/17/2024 8:54 AM EDT 100 mL/hr Rate Verify 10/17/2024 6:39 AM EDT 100 mL/hr keTORolac (Toradol) 15 MG/ML inj 15 mg 15 mg, IV Push, Q6H PRN Pain, Moderate, Starting on Sun10/13/24 at 2126, Until Sun10/14/24 at 1307, For 4 doses Given 10/14/2024 3:45 AM EDT 15 mg Given 10/13/2024 9:32 PM EDT 15 mg keTORolac (Toradol) 15 MG/ML inj 15 mg 15 mg, IV Push, Q6H PRN Pain, Moderate, Starting on Sun10/14/24 at 1307, Until Sun10/15/24 at 2023, For 2 days Given 10/15/2024 3:43 PM EDT 15 mg Given 10/15/2024 7:55 AM EDT 15 mg Given 10/14/2024 10:53 PM EDT 15 mg NSS 0.9% 1,000 mL bolus infusion Intravenous, at 1,000 mL/hr Administer over 60 Minutes, Administer entire volume within 60 minutes or less., ONCE, 1 dose, On Sun10/13/24 at 2014 New Bag 10/13/2024 7:37 PM EDT 1,000 mL 10 00 mL/hr ondansetron (Zofran) inj 4 mg 4 mg, IV Push, Q6H PRN Nausea, Starting on Sun10/13/24 at 205, Until 10/19/24 at 1621 oxyCODONE (Oxy IR) tab 5 mg 5 mg, Oral, Q6H PRN Pain, Breakthrough, Starting on Sun10/13/24 at 2127, Until Sun10/15/24 at 2022 Given 10/15/2024 11:57 AM EDT 5 mg Given 10/14/2024 11:35 PM EDT 5 mg Given 10/14/2024 1:08 AM EDT 5 mg oxyCODONE (Oxy IR) tab 5 mg 5 mg, Oral, Q4H PRN Pain, Severe, Starting on Sun10/15/24 at 2022, Until 10/19/24 at 1621 Given 10/19/2024 2:19 AM EDT 5 mg Given 10/18/2024 9:24 PM EDT 5 mg Given 10/17/2024 9:12 PM EDT 5 mg Piperacillin-Tazobactam (Zosyn) 4.5 g in 100 mL NSS ivpb (FOUR hour infusion) IV Piggyback, 4.5 g, Q8HNOW, 15 doses, First dose on Sun10/14/24 at 0300, Last dose on Sun10/18/24 at 1900, Administer over 4 Hours, at 26.25 mL/hr New Bag 10/18/2024 6:25 PM EDT 4.5 g 26.25 mL/hr New Bag 10/18/2024 11:45 AM EDT 4.5 g 26.25 mL/hr Rate Verify 10/18/2024 9:07 AM EDT 1.125 g/hr 26.25 mL/hr Piperacillin-Tazobactam (Zosyn) 4.5 g in 100 mL NSS ivpb (HALF hour infusion) IV Piggyback, 4.5 g, ONCE, 1 dose, On Sun10/13/24 at 2130, Administer over 30 Minutes New Bag 10/13/2024 9:55 PM EDT 4.5 g 210 mL/hr polyvinyl alcohol-povidone PF (Refresh) ophthalmic solution 1 Drop 1 Drop, Both eyes, PRN Other, dry eyes, Starting on Sun10/14/24 at 1927, Until Sun10/19/24 at 1621 Given 10/15/2024 7:56 AM EDT 1 Drop Given 10/14/2024 7:43 PM EDT 1 Drop Povidone-Iodine nasal swab 1 Swab 1 Swab, Nasal, ONCE, On Sun10/15/24 at 1800, For 1 dose, Administer as per senior treasury consultant instructions unless contraindicated., Pre-Op Given 10/15/2024 6:00 PM EDT 1 Swab Simethicone (Mylicon) chew tab 80 mg 80 mg, Oral, Q6H PRN Gas, Starting on Sun10/16/24 at 1922, Until Sun10/19/24 at 1621, Tablets need to be chewed before swallowing! Given 10/16/2024 7:49 PM EDT 80 mg documented in this encounter Active and Recently Administered Medications Times are shown in EDT. Scheduled Medication Order 10/17/2024 10/18/2024 10/19/2024 Acetaminophen (Tylenol) tab 650 mg (CANCELED) 650 mg, Oral, Q6H, First dose on Sun10/14/24 at 0000, Until Discontinued, Maximum of 4 grams (4000 mg) per day. 0528 (Given - Provider: Mamie Perez RN)1122 (Given - Provider: Ayse Arce, ENEDINA)1704 (Given - Provider: Tasia Metz RN)2310 (Given - Provider: Ivy Hinkle, ENEDINA) 0434 (Given - Provider: Ivy Hinkle, ENEDINA)1144 (Given - Provider: Ayse Arce, ENEDINA) Carisoprodol (Soma) tab 350 mg 350 mg, Oral, Q6H, First dose on Sun10/18/24 at 1300, Until Discontinued 1237 (Given - Provider: Tasia Metz RN)1823 (Given - Provider: Ayse Arce, ENEDINA)2303 (Given - Provider: Ivy Hinkle, ENEDINA) 0557 (Given - Provider: Ivy Hinkle, ENEDINA)1201 (Given - Provider: Ayse Arce RN) Piperacillin-Tazobactam (Zosyn) 4.5 g in 100 mL NSS ivpb (FOUR hour infusion) (COMPLETED) IV Piggyback, 4.5 g, Q8HNOW, 15 doses, First dose on Sun10/14/24 at 0300, Last dose on Sun10/18/24 at 1900, Administer over 4 Hours, at 26.25 mL/hr 0318 (New Bag - Provider: Mamie Perez RN)0639 (Rate Verify - Provider: Mamie Perez RN)0718 (Stopped - Provider: Ayse Arce RN)1124 (New Bag - Provider: Ayse Arce RN)1518 (Rate Verify - Provider: Ayse Arce, ENEDINA)1754 (New Bag - Provider: Ayse Arce, ENEDINA) 0439 (New Bag - Provider: Ivy Hinkle RN)0442 (Paused - Provider: Ayse Arce RN)0540 (Restarted - Provider: Ayse Arce RN)0907 (Rate Verify - Provider: Ayse Arce RN)0937 (Stopped - Provider: Ayse Arce, ENEDINA)1145 (New Bag - Provider: Ayse Arce, ENEDINA)1545 (Stopped - Provider: Ayse Arce, ENEDINA)1825 (New Bag - Provider: Ayse Arce, ENEDINA) Continuous Medication Order 10/17/2024 10/18/2024 10/19/2024 Isolyte-S pH 7.4 infusion (CANCELED) Intravenous, at 100 mL/hr, Plasma-LYTE 148, isolyte-S, and isolyte-S pH 7.4 are considered equivalent - including for MAR barcode scanning., CONTINUOUS, Starting on Sun10/13/24 at 2130, Until Sun10/17/24 at 0958 0210 (Rate Verify - Provider: Mamie Perez RN)0639 (Rate Verify - Provider: Mamie Perez RN)0850 (Paused - Provider: Ayse Arce RN)0854 (Restarted - Provider: Ayse Arce, ENEDINA)0951 (New Bag - Provider: Ayse Arce RN)0958 (Stopped - Provider: Ayse Arce RN) PRN Medication Order 10/17/2024 10/18/2024 10/19/2024 Acetaminophen (Tylenol) tab 650 mg 650 mg, Oral, Q6H PRN Fever >38C(100.5F), Starting on 10/18/24 at 1230, Until 10/19/24 at 1621, Maximum of 4 grams (4000 mg) per day. HYDROmorphone (Dilaudid) inj 0.5 mg 0.5 mg, IV Push, Q3H PRN Pain, Breakthrough, Starting on Sun10/15/24 at 2022, Until 10/19/24 at 1621 ondansetron (Zofran) inj 4 mg 4 mg, IV Push, Q6H PRN Nausea, Starting on Sun10/13/24 at 205, Until 10/19/24 at 1621 oxyCODONE (Oxy IR) tab 5 mg 5 mg, Oral, Q4H PRN Pain, Severe, Starting on Sun10/15/24 at 2022, Until 10/19/24 at 1621 0838 (Given - Provider: Ayse Arce RN)1704 (Given - Provider: Tasia Metz RN)2111 (Given - Provider: Ivy Hinkle, ENEDINA) 2123 (Given - Provider: Ivy Hinkle, ENEDINA) 218 (Given - Provider: Ivy Hinkle RN) polyvinyl alcohol-povidone PF (Refresh) ophthalmic solution 1 Drop 1 Drop, Both eyes, PRN Other, dry eyes, Starting on Sun10/14/24 at 1927, Until 10/19/24 at 1621 Simethicone (Mylicon) chew tab 80 mg 80 mg, Oral, Q6H PRN Gas, Starting on Shima 10/16/24 at 1922, Until 10/19/24 at 1621, Tablets need to be chewed before swallowing! documented in this encounter Advance Directives * Full Code (Latest Code Status on File) Date Activated Date Inactivated Comments 10/13/2024 8:51 PM 10/19/2024 4:21 PM This order re flects the patients wishes and were consensually agreed upon. Question Answer Comments Discussion of Advance Directives occurred with: Patient Does the patient have a Living Will? No Does the patient have Health Care Power of Attor kori? No Care Teams Control Electrician Relationship Specialty Start Date End Date Pro, Tj Queen MD [address] [place] [address] PCP - General Internal Medicine 12/03/18 documented as of this encounter
--- OUTSIDE RECORDS SUMMARY | 2024-10-21 18:54 | External Medical Summary ---
Author Name Unknown Address Unknown Organization [facility] [address] [place] [address] Laboratory Report Ordering Provider Test Date Status ADY PICKARD 10/17/2024 05:13:00 Final Observation Date Value Abnormality Reference (Units ) Status BUN 10/17/2024 05:13:00 10 6-20 (mg/dL) Final Creatinine 10/17/2024 05:13:00 1.0 0.6-1.2 (mg/dL) Final Glomerular filtration rate/1.73 sq M.predicted [Volume Rate/Area] in Serum, Plasma or Blood by Creatinine-based formula (CKD-EPI) 10/17/2024 05:13:00 >90 >=60 (mL/min) Final eGFR is calculated based on the CKD-EPI 2020 equation. Sodium 10/17/2024 05:13:00 142 135-146 (m mol/L) Final Potassium 10/17/2024 05:13:00 4.0 3.5-5.1 (m mol/L) Final Cl 10/17/2024 05:13:00 108 Above high normal 98 -107 (mmol/L) Final CO2 10/17/2024 05:13:00 26 22-32 (mmo l/L) Final Anion gap 10/17/2024 05:13:00 8 7-15 (mmol /L) Final Glucose 10/17/2024 05:13:00 124 Above high normal 70 -120 (mg/dL) Final Calcium 10/17/2024 05:13:00 8.5 8.4-10.2 ( mg/dL) Final Performing Location [facility] [address] [place] [address]
--- OUTSIDE RECORDS SUMMARY | 2024-10-21 18:54 | External Medical Summary ---
Author Name Unknown Address Unknown Organization K01:LABORATORY [facility] [place] - [address] [facility] [address] Laboratory Report Ordering Provider Test Date Status ADY PICKARD 10/15/2024 19:14:00 Final Multiple other species of ae robic bacteria.
No further workup routinely performed Observation Date Value Abnormality Reference (Units ) Status Bacteria identified in Specimen by Culture 10/15/2024 19:14:00 [id number]^ESCHE RICHIA COLI Abnormal Final Moderate Escherichia coli Bacteria identified in Specimen by Culture 10/15/2024 19:14:00 [id number]^ESCHERICHIA COLI Abnormal Final Few - second type Escherichi a coli Bacteria identified in Specimen by Culture 10/15/2024 19:14:00 [id number]^VEILLONELLA PARVULA Abnormal Final Moderate Veillonella parvula Gram Stain 10/15/2024 19:14:00 No squamous epithelial cells seen Abnormal Final Gram Stain 10/15/2024 19:14:00 Many Polymorphonuclear leukoc ytes Abnormal Final Gram Stain 10/15/2024 19:14:00 Occasional Gram positive cocc i Abnormal Final Gram Stain 10/15/2024 19:14:00 Occasional Gram positive baci lli Abnormal Final Performing Location LABORATORY [facility] [place] - [address] [facility] [address] Ordering Provider Test Date Status ADY PICKARD 10/15/2024 19:14:00 Final Observation Date Value Abnormality Reference (Units) Status Ampicillin + Sulbactam 10/15/2024 19:14:00 >=32 Resistant Final Cefazolin 10/15/2024 19:14:00 16 Resistant Final Cefepime susceptibility 10/15/2024 19:14:00 <=0.12 Susceptible Final Ceftriaxone suceptibility 10/15/2024 19:14:00 <=0.25 Susceptible Final Ciprofloxacin 10/15/2024 19:14:00 <=0.06 Susceptible Final Gentamicin susceptibility 10/15/2024 19:14:00 <=1 Susceptible Final Piperacillin + Tazobactamsusceptibility 10/15/2024 19:14:00 <=4 Susceptible Final TMP-SMZ susceptibility 10/15/2024 19:14:00 <=20 Susceptible Final Performing Location LABORATORY [facility] [place] - [address] [place] [address] Ordering Provider Test Date Status ADY PICKARD 10/15/2024 19:14:00 Final Observation Date Value Abnormality Reference (Units) Status Ampicillin + Sulbactam 10/15/2024 19:14:00 <=2 Susceptible Final Cefazolin 10/15/2024 19:14:00 2 Susceptible Final Cefepime susceptibility 10/15/2024 19:14:00 <=0.12 Susceptible Final Ceftriaxone suceptibility 10/15/2024 19:14:00 <=0.25 Susceptible Final Ciprofloxacin 10/15/2024 19:14:00 <=0.06 Susceptible Final Gentamicin susceptibility 10/15/2024 19:14:00 <=1 Susceptible Final Piperacillin + Tazobactamsusceptibility 10/15/2024 19:14:00 <=4 Susceptible Final TMP-SMZ susceptibility 10/15/2024 19:14:00 <=20 Susceptible Final Test: Culture, Wound, Deep, Aerobic and Anaerobic
Specimen Source: Perineum
Specimen Type: Deep Wound
Specimen Date: 10/15/20241913
Result Date: 10/21/2024 1001
Result Status: Final result
Abnormal: Yes
Resulting Lab: LABORATORY [facility] [place]
[address]
[place] [address]

CULTURE

Moderate Escherichia coli (Abnormal)

Few - second type Escherichia coli (Abnormal)

Moderate Veillonella parvula (Abnormal)

Multiple other species of aerobic bacteria.No further workup routinely
performed

STAIN

No squamous epithelial cells seen

Many Polymorphonuclear leukocytes

Occasional Gram positive cocci

Occasional Gram positive bacilli

SUSCEPTIBILITY

Escherichia coli Escherichia coli
(1) (2)
METHOD MICROBROTH MICROBROTH
DILUTIONS DILUTIONS

AMPICILLIN/SULBACTAM >=32 Resistant <=2 Susceptible
CEFAZOLIN 16 Resistant 2 Susceptible
CEFEPIME <=0.12 Susceptible <=0.12 Susceptible
CEFTRIAXONE <=0.25 Susceptible <=0.25 Susceptible
CIPROFLOXACIN <=0.06 Susceptible <=0.06 Susceptible
GENTAMICIN <=1 Susceptible <=1 Susceptible
PIPERACILLIN TAZOBACTAM <=4 Susceptible <=4 Susceptible
TRIMETH/SULFAMETHOXAZOLE <=20 Susceptible <=20 Susceptible

[facility] LABORATORY [facility] [place] - [address] [facility] [address]
--- OUTSIDE RECORDS SUMMARY | 2024-10-21 18:54 | External Medical Summary ---
Author Name Unknown Address Unknown Organization K1F:LABORATORY [facility] - [address] [place] [address] Laboratory Report Ordering Provider Test Date Status ADY PICKARD 10/16/2024 04:38:00 Final Observation Date Value Abnormality Reference (Units ) Status WBC, Total 10/16/2024 04:38:00 12.18 Above high normal 4.00-10.80 (K/uL) Final RBC 10/16/2024 04:38:00 3.80 4.50-5.25 (M/uL) Final Hemoglobin 10/16/2024 04:38:00 11.5 Below low normal 14.0-16.8 (g/dL) Final HCT 10/16/2024 04:38:00 35.0 Below low normal 40.0-48.4 (%) Final MCV 10/16/2024 04:38:00 92.1 82.0-99.5 (fL) Final MCH 10/16/2024 04:38:00 30.3 27.0-34.0 (pg) Final MCHC 10/16/2024 04:38:00 32.9 32.0-36.0 (g/dL) Final RDW 10/16/2024 04:38:00 13.0 11.5-15.5 (%) Final Platelets 10/16/2024 04:38:00 187 140-400 (K/uL) Final MPV 10/16/2024 04:38:00 10.2 6.6-11.1 (fL) Final Nucleated erythrocytes/100 leukocytes [Ratio] in Blood by Automated count 10/16/2024 04:38:00 0 <=0 (/100 WBCs) Final Performing Location LABORATORY [facility] - [address] [place] [address]
--- OUTSIDE RECORDS SUMMARY | 2024-10-21 18:54 | External Medical Summary ---
Author Name Unknown Address Unknown Organization K1F:LABORATORY [facility] - [address] [place] [address] Laboratory Report Ordering Provider Test Date Status ADY PICKARD 10/18/2024 04:32:00 Final Observation Date Value Abnormality Reference (Units ) Status BUN 10/18/2024 04:32:00 9 6-20 (mg/dL) Final Creatinine 10/18/2024 04:32:00 1.1 0.6-1.2 (mg/dL) Final Glomerular filtration rate/1.73 sq M.predicted [Volume Rate/Area] in Serum, Plasma or Blood by Creatinine-based formula (CKD-EPI) 10/18/2024 04:32:00 85 >=60 (mL/min) Final eGFR is calculated based on the CKD-EPI 2020 equation. Sodium 10/18/2024 04:32:00 139 135-146 (m mol/L) Final Potassium 10/18/2024 04:32:00 3.7 3.5-5.1 (m mol/L) Final Cl 10/18/2024 04:32:00 105 98-107 (mm ol/L) Final CO2 10/18/2024 04:32:00 24 22-32 (mmo l/L) Final Anion gap 10/18/2024 04:32:00 10 7-15 (mmol /L) Final Glucose 10/18/2024 04:32:00 117 70-120 (mg /dL) Final Calcium 10/18/2024 04:32:00 8.7 8.4-10.2 ( mg/dL) Final Performing Location LABORATORY [facility] - [address] [place] [address]
--- OUTSIDE RECORDS SUMMARY | 2024-10-21 18:54 | External Medical Summary ---
Author Name Unknown Address Unknown Organization K1F:LABORATORY [facility] - [address] [place] [address] Laboratory Report Ordering Provider Test Date Status JASMINE JAQUEZ 10/15/2024 07:48:00 Final Observation Date Value Abnormality Reference (Units ) Status WBC, Total 10/15/2024 07:48:00 9.33 4.00-10.80 (K/uL) Final RBC 10/15/2024 07:48:00 4.01 4.50-5.25 (M/uL) Final Hemoglobin 10/15/2024 07:48:00 12.2 Below low normal 14.0-16.8 (g/dL) Final HCT 10/15/2024 07:48:00 37.1 Below low normal 40.0-48.4 (%) Final MCV 10/15/2024 07:48:00 92.5 82.0-99.5 (fL) Final MCH 10/15/2024 07:48:00 30.4 27.0-34.0 (pg) Final MCHC 10/15/2024 07:48:00 32.9 32.0-36.0 (g/dL) Final RDW 10/15/2024 07:48:00 12.7 11.5-15.5 (%) Final Platelets 10/15/2024 07:48:00 195 140-400 (K/uL) Final MPV 10/15/2024 07:48:00 10.1 6.6-11.1 (fL) Final Nucleated erythrocytes/100 leukocytes [Ratio] in Blood by Automated count 10/15/2024 07:48:00 0 <=0 (/100 WBCs) Final Performing Location LABORATORY [facility] - [address] [place] [address]
--- OUTSIDE RECORDS SUMMARY | 2024-10-21 18:54 | External Medical Summary ---
Author Name Unknown Address Unknown Organization : Laboratory Report Ordering Provider Test Date Status ADY PICKARD 10/15/2024 17:31:14 Final Observation Date Value Abnormality Reference (Units ) Status Glucose Point of Care 10/15/2024 17:31:14 111 70-120 (mg/dL) Final Performing Location
--- OUTSIDE RECORDS SUMMARY | 2024-10-21 18:54 | External Medical Summary ---
Author Name Unknown Address Unknown Organization K1F:LABORATORY [facility] - [address] [place] [address] Laboratory Report Ordering Provider Test Date Status ADY PICKARD 10/17/2024 05:12:00 Final Observation Date Value Abnormality Reference (Units ) Status WBC, Total 10/17/2024 05:12:00 12.21 Above high normal 4.00-10.80 (K/uL) Final RBC 10/17/2024 05:12:00 3.53 4.50-5.25 (M/uL) Final Hemoglobin 10/17/2024 05:12:00 10.7 Below low normal 14.0-16.8 (g/dL) Final HCT 10/17/2024 05:12:00 32.7 Below low normal 40.0-48.4 (%) Final MCV 10/17/2024 05:12:00 92.6 82.0-99.5 (fL) Final MCH 10/17/2024 05:12:00 30.3 27.0-34.0 (pg) Final MCHC 10/17/2024 05:12:00 32.7 32.0-36.0 (g/dL) Final RDW 10/17/2024 05:12:00 13.1 11.5-15.5 (%) Final Platelets 10/17/2024 05:12:00 235 140-400 (K/uL) Final MPV 10/17/2024 05:12:00 10.0 6.6-11.1 (fL) Final Nucleated erythrocytes/100 leukocytes [Ratio] in Blood by Automated count 10/17/2024 05:12:00 0 <=0 (/100 WBCs) Final Performing Location LABORATORY [facility] - [address] [place] [address]
--- OUTSIDE RECORDS SUMMARY | 2024-10-21 18:54 | External Medical Summary ---
Author Name Unknown Address Unknown Organization K1F:LABORATORY [facility] - [address] [place] [address] Laboratory Report Ordering Provider Test Date Status ADY PICKARD 10/19/2024 04:31:00 Final Observation Date Value Abnormality Reference (Units ) Status WBC, Total 10/19/2024 04:31:00 12.27 Above high normal 4.00-10.80 (K/uL) Final RBC 10/19/2024 04:31:00 3.92 4.50-5.25 (M/uL) Final Hemoglobin 10/19/2024 04:31:00 12.2 Below low normal 14.0-16.8 (g/dL) Final HCT 10/19/2024 04:31:00 36.0 Below low normal 40.0-48.4 (%) Final MCV 10/19/2024 04:31:00 91.8 82.0-99.5 (fL) Final MCH 10/19/2024 04:31:00 31.1 27.0-34.0 (pg) Final MCHC 10/19/2024 04:31:00 33.9 32.0-36.0 (g/dL) Final RDW 10/19/2024 04:31:00 13.1 11.5-15.5 (%) Final Platelets 10/19/2024 04:31:00 270 140-400 (K/uL) Final MPV 10/19/2024 04:31:00 9.4 6.6-11.1 (fL) Final Nucleated erythrocytes/100 leukocytes [Ratio] in Blood by Automated count 10/19/2024 04:31:00 0 <=0 (/100 WBCs) Final Performing Location LABORATORY [facility] - [address] [place] [address]
--- OUTSIDE RECORDS SUMMARY | 2024-10-21 18:55 | External Medical Summary ---
Author Name Unknown Address Unknown Organization K1F:LABORATORY [facility] - [address] [place] [address] Laboratory Report Ordering Provider Test Date Status RADHA CASTILLO 10/13/2024 19:33:14 Final Warfarin Therapy
INR: 2 .0-3.0 conventional anticoagulation
INR: 2.5- 3.5 high intensity anticoagulation Observation Date Value Abnormality Reference (Units ) Status PT 10/13/2024 19:33:14 14.1 11.6-15.2 (seconds) Final INR 10/13/2024 19:33:14 1.1 0.8-1.2 Final Performing Location LABORATORY [facility] - [address] [place] [address]
--- OUTSIDE RECORDS SUMMARY | 2024-10-21 18:55 | External Medical Summary ---
Author Name Unknown Address Unknown Organization K1F:LABORATORY [facility] - [address] [place] [address] Laboratory Report Ordering Provider Test Date Status RADHA CASTILLO 10/13/2024 19:33:14 Final Observation Date Value Abnormality Reference (Units ) Status Lactic Acid 10/13/2024 19:33:14 1.6 0.4-2.0 (mmol/L) Final Performing Location LABORATORY [facility] - [address] [place] [address]
--- OUTSIDE RECORDS SUMMARY | 2024-10-21 18:55 | External Medical Summary ---
Author Name Unknown Address Unknown Organization K1F:LABORATORY [facility] - [address] [place] [place] [address] Laboratory Report Ordering Provider Test Date Status RADHA CASTILLO 10/13/2024 19:33:14 Final Observation Date Value Abnormality Reference (Units ) Status BUN 10/13/2024 19:33:14 12 6-20 (mg/dL) Final Creatinine 10/13/2024 19:33:14 1.1 0.6-1.2 (mg/dL) Final Glomerular filtration rate/1.73 sq M.predicted [Volume Rate/Area] in Serum, Plasma or Blood by Creatinine-based formula (CKD-EPI) 10/13/2024 19:33:14 88 >=60 (mL/min) Final eGFR is calculated based on the CKD-EPI 2020 equation. Sodium 10/13/2024 19:33:14 138 135-146 (m mol/L) Final Potassium 10/13/2024 19:33:14 4.3 3.5-5.1 (m mol/L) Final Cl 10/13/2024 19:33:14 100 98-107 (mm ol/L) Final CO2 10/13/2024 19:33:14 23 22-32 (mmo l/L) Final Anion gap 10/13/2024 19:33:14 15 7-15 (mmol /L) Final Glucose 10/13/2024 19:33:14 134 Above high normal 70 -120 (mg/dL) Final Albumin 10/13/2024 19:33:14 4.5 3.8-5.0 (g /dL) Final AST (Aspartate aminotransferase) 10/13/2024 19:33:14 30 10-50 (U/L) Fin al Alk Phos 10/13/2024 19:33:14 62 35-130 (U/ L) Final Bilirubin, Total 10/13/2024 19:33:14 1.2 <=1 .2 (mg/dL) Final Calcium 10/13/2024 19:33:14 9.2 8.4-10.2 ( mg/dL) Final Protein 10/13/2024 19:33:14 7.7 6.0-8.3 (g /dL) Final ALT (Alanine aminotransferase) 10/13/2024 19:33:14 22 10-50 (U/L) Aime villegas Performing Location LABORATORY [facility] - [address] [place] [address] [address] [place] [address]
--- OUTSIDE RECORDS SUMMARY | 2024-10-21 18:55 | External Medical Summary ---
Author Name Unknown Address Unknown Organization K1F:LABORATORY [facility] - [address] [place] [address] Laboratory Report Ordering Provider Test Date Status RADHA CASTILLO 10/13/2024 19:33:14 Final Observation Date Value Abnormality Reference (Units ) Status WBC, Total 10/13/2024 19:33:14 14.83 Above high normal 4.00-10.80 (K/uL) Final RBC 10/13/2024 19:33:14 4.95 4.50-5.25 (M/uL) Final Hemoglobin 10/13/2024 19:33:14 15.1 14.0-16.8 (g/dL) Final HCT 10/13/2024 19:33:14 45.3 40.0-48.4 (%) Final MCV 10/13/2024 19:33:14 91.5 82.0-99.5 (fL) Final MCH 10/13/2024 19:33:14 30.5 27.0-34.0 (pg) Final MCHC 10/13/2024 19:33:14 33.3 32.0-36.0 (g/dL) Final RDW 10/13/2024 19:33:14 12.5 11.5-15.5 (%) Final Platelets 10/13/2024 19:33:14 247 140-400 (K/uL) Final MPV 10/13/2024 19:33:14 9.7 6.6-11.1 (fL) Final Nucleated erythrocytes/100 leukocytes [Ratio] in Blood by Automated count 10/13/2024 19:33:14 0 <=0 (/100 WBCs) Final Performing Location LABORATORY [facility] - [address] [place] [address]
--- OUTSIDE RECORDS SUMMARY | 2024-10-21 18:55 | External Medical Summary ---
Author Name Unknown Address Unknown Organization K1F:LABORATORY [facility] - [address] [place] [address] Laboratory Report Ordering Provider Test Date Status RADHA CASTILLO 10/13/2024 19:33:14 Final Observation Date Value Abnormality Reference (Units ) Status SYNC LEUKOCYTES IN BLOOD BY AUTOMATED COUNT 10/13/2024 19:33:14 14.83 Above high normal 4.00-10.80 (K/uL) Final Segs 10/13/2024 19:33:14 82.7 Above high normal 40.0-75.0 (%) Final Lymphs % 10/13/2024 19:33:14 9.7 Below low normal 18.0-42.0 (%) Final Monos 10/13/2024 19:33:14 6.8 1.0-11.0 (%) Final Eosinophils 10/13/2024 19:33:14 0.1 0.0-6.0 (%) Final Basos 10/13/2024 19:33:14 0.2 0.0-2.0 (%) Final Immature Granulocyte, Percent 10/13/2024 19:33:14 0.5 0.0-2.0 (%) Final Absolute Segs 10/13/2024 19:33:14 12.26 Above high normal 1.80-7.70 (K/uL) Final Lymphs, absolute 10/13/2024 19:33:14 1.44 1.00-4.80 (K/ul) Final Monos, Abs 10/13/2024 19:33:14 1.01 0.00-1.10 (K/uL) Final Eos, Abs 10/13/2024 19:33:14 0.01 0.00-0.70 (K/uL) Final Basos, Abs 10/13/2024 19:33:14 0.03 0.00-0.20 (K/uL) Final Immature Granulocytes, Number 10/13/2024 19:33:14 0.08 0.00-0.20 (K/uL) Final Performing Location LABORATORY [facility] - [address] [place], [place] [address] [place]. [place] [address]
[2024-10-21] MEDS: KETOROLAC 30 MG/ML VIAL IV PRN (20:23)
[2024-10-21] MEDS: PIPERACILLIN/TAZOBACTAM 4.5 GM/100 ML BAG IV SCH (20:42)
[2024-10-22 05:59] LABS: Hematocrit (blood only) 34.4 % (42.0-52.0); Hemoglobin 11.4 g/dl (14.0-18.0); Mean Corpuscular Hemoglobin 29.6 pg (25.0-34.0); Mean Corpuscular Hgb Conc 33.1 g/dL (32.0-36.0); Mean Corpuscular Volume 89.4 fL (80.0-100.0); Mean Platelet Volume 9.3 fL (9.4-12.4); Platelet Count 381 K/uL (130-400); RDW Coefficient of Variation 12.7 % (11.5-14.5); RDW Standard Deviation 41.3 fL (36.4-46.3); Red Blood Count 3.85 M/uL (4.70-6.10); White Blood Count 9.62 K/ul (4.8-10.8)
[2024-10-22 06:15] LABS: BUN Creatinine Ratio 11.4 (10-20); Calcium 8.4 mg/dl (8.6-10.3); Creatinine Clr Calc Pharmacy 104.9 ml/min; Potassium 3.8 mmol/L (3.5-5.1)
[2024-10-22 06:38] LABS: Basophils # (auto) 0.06 K/uL (0.00-0.20); Basophils % (auto) 0.6 %; Eosinophils # (auto) 0.39 K/uL (0.00-0.50); Eosinophils % (auto) 4.1 %; Immature Granulocytes # (auto) 0.77 K/uL (0.01-0.20); Lymphocytes # (auto) 2.21 K/uL (1.20-3.40); Monocytes # (auto) 0.83 K/uL (0.11-0.59); Monocytes % (auto) 8.6 %; Neutrophils # (auto) 5.36 K/uL (1.40-6.50); Neutrophils % (auto) 55.7 %; RBC Morphology Unremarkable
--- NOTE | 2024-10-22 10:50 | Surgery Progress Note ---
Date of Service October 22, 2024 Assessment & Plan (1) Post-operative infection: Plan: continue abx regular diet good progress Admission and Anticipated Discharge Date Admission Date: October 21, 2024 Subjective feels better a little pelvic pain but improved afebrile WBC normal Review of Systems Constitutional: no fever and no chills Respiratory: no cough and no dyspnea Cardiovascular: no chest pain Gastrointestinal: + abdominal pain; no nausea, no vomiting and no diarrhea/loose stools Genitourinary: no dysuria Neurologic: no localized weakness and no generalized weakness Psychiatric: no behavioral changes Physical Exam Constitutional: WD/WN, vitals as above Neck: trachea midline Respiratory: normal respiratory effort, lungs clear to auscultation Cardiovascular: RRR, no murmur, no edema Gastrointestinal (Abdomen): Inspection/Auscultation: abdomen normal to inspection and normal bowel sounds; abdomen not distended Percussion/Palpation: + abdomen tender (mild) and abdomen soft; no guarding and abdomen not rigid Musculoskeletal: Head/Neck/Chest: normocephalic and head atraumatic Skin: no rashes, warm and dry Results & Data Vital Signs (Past 12 Hours) Vital Signs Temp Pulse Resp BP Pulse Ox O2 Del Method 10/22/24 07:50 Room Air 10/22/24 07:12 36.7 C 75 16 129/72 97 Room Air (1) Post-operative infection Encounter type: initial encounter Postoperative infection type: unspecified type Qualified Code(s): T81.40XA - Infection following a procedure, unspecifi ed, initial encounter
[2024-10-22 15:39] LABS: Adenovirus F 40/41 PCR Not Detected (NotDetected); Astrovirus PCR Not Detected (NotDetected); Campylobacter PCR Not Detected (NotDetected); Cryptosporidium PCR Not Detected (NotDetected); Cyclospora cayetanensis PCR Not Detected (NotDetected); Entamoeba histolytica PCR Not Detected (NotDetected); Enteroaggregative E.coli(EAEC) Not Detected (NotDetected); Enteropathogenic E.coli (EPEC) Not Detected (NotDetected); Enterotoxigenic E.coli (ETEC) Not Detected (NotDetected); Giardia lamblia PCR Not Detected (NotDetected); Norovirus GI/GII PCR Not Detected (NotDetected); Plesiomonas shigelloides PCR Not Detected (NotDetected); Rotavirus A PCR Not Detected (NotDetected); Salmonella PCR Not Detected (NotDetected); Sapovirus PCR Not Detected (NotDetected); Shiga-like Toxin E.coli (STEC) Not Detected (NotDetected); Shigella/Enteroinvasive E.coli Not Detected (NotDetected); Vibrio cholerae PCR Not Detected (NotDetected); Vibrio species PCR Not Detected (NotDetected); Yersinia enterocolitica PCR Not Detected (NotDetected)
[2024-10-22] MEDS: ACETAMINOPHEN 325 MG TAB PO PRN (19:15)
[2024-10-23 07:42] VITALS: BP 135/81; PULSE 71; RESP 16; TEMP 98.1; O2SAT 97
[2024-10-23 08:01] LABS: Basophils # (auto) 0.03 K/uL (0.00-0.20); Basophils % (auto) 0.3 %; Eosinophils # (auto) 0.27 K/uL (0.00-0.50); Eosinophils % (auto) 2.9 %; Hematocrit (blood only) 35.8 % (42.0-52.0); Immature Granulocytes # (auto) 0.45 K/uL (0.01-0.20); Immature Granulocytes % (auto) 4.8 %; Lymphocytes # (auto) 1.87 K/uL (1.20-3.40); Lymphocytes % (auto) 20.2 %; Mean Corpuscular Hemoglobin 30.1 pg (25.0-34.0); Mean Corpuscular Hgb Conc 33.5 g/dL (32.0-36.0); Mean Corpuscular Volume 89.7 fL (80.0-100.0); Mean Platelet Volume 9.3 fL (9.4-12.4); Monocytes # (auto) 0.65 K/uL (0.11-0.59); Neutrophils # (auto) 6.01 K/uL (1.40-6.50); Neutrophils % (auto) 64.8 %; Platelet Count 452 K/uL (130-400); RDW Coefficient of Variation 12.7 % (11.5-14.5); Red Blood Count 3.99 M/uL (4.70-6.10); White Blood Count 9.28 K/ul (4.8-10.8)
[2024-10-23 08:19] LABS: BUN Creatinine Ratio 7.5 (10-20); Calcium 8.9 mg/dl (8.6-10.3); Creatinine Clr Calc Pharmacy 99.3 ml/min; Potassium 3.8 mmol/L (3.5-5.1)
--- NOTE | 2024-10-23 11:30 | Surgery Progress Note ---
Date of Service October 23, 2024 Assessment & Plan (1) Post-operative infection: Plan: POD # 8 status post laparoscopic appendectomy for perforated appendicitis at [facility] Afebrile vital signs stable No abdominal pain OLVIN drain with serous output No leukocytosis Abdominal and rectal pain has significantly improved with normal bowel movements Stool studies and C. difficile negative Plan: Continue IV antibiotics up until discharge and will try to transition to oral Augmentin for another week Will reschedule postop visit with Dr. Goodwin next week for close follow-up for staple removal and OLVIN drain management Can likely DC home this afternoon Discussed with Dr. Capellan who agrees with above Admission and Anticipated Discharge Date Admission Date: October 21, 2024 Subjective feeling much better today minimal abdominal pain Tolerating regular diet without abdominal pain nausea or vomiting No fevers no chills Had a normal bowel movement without significant amount of low pelvis rectal pain no blood in the stool Postop appointment is scheduled with Dr. Goodwin at [place] on 11/04 Physical Exam Constitutional: WD/WN, vitals as above cooperative and comfortable; no acute distress and not ill appearing Respiratory: normal respiratory effort, lungs clear to auscultation Gastrointestinal (Abdomen): Inspection/Auscultation: abdomen normal to in spection and + abdominal surgical drain present ( serous drainage); abdomen not distended Percussion/Palpation: abdomen soft; abdomen nontender, no guarding and abdomen not rigid Skin: no rashes, warm and dry Psychiatric: A+Ox3, euthymic affect Results & Data Vital Signs (Past 12 Hours) Vital Signs Temp Pulse Resp BP Pulse Ox O2 Del Method 10/23/24 07:08 36.7 C 71 16 135/81 97 Room Air Laboratory Results 10/23/24 10/22/24 Range/Units 07:29 14:01 WBC 9.28 (4.8-10.8) K/ul RBC 3.99 L (4.70-6.10) M/uL Hgb 12.0 L (14.0-18.0) g/dl Hct 35.8 L (42.0-52.0) % MCV 89.7 (80.0-100.0) fL MCH 30.1 (25.0-34.0) pg MCHC 33.5 (32.0-36.0) g/dL RDW Std Deviation 42.0 (36.4-46.3) fL RDW Coeff of Marshall 12.7 (11.5-14.5) % Plt Count 452 H (130-400) K/uL MPV 9.3 L (9.4-12.4) fL Immature Gran % (Auto) 4.8 % Neut % (Auto) 64.8 % Lymph % (Auto) 20.2 % Garza % (Auto) 7.0 % Eos % (Auto) 2.9 % Baso % (Auto) 0.3 % Neut # (Auto) 6.01 (1.40-6.50) K/uL Lymph # (Auto) 1.87 (1.20-3.40) K/uL Garza # (Auto) 0.65 H (0.11-0.59) K/uL Eos # (Auto) 0.27 (0.00-0.50) K/uL Baso # (Auto) 0.03 (0.00-0.20) K/uL Immature Gran # (Auto) 0.45 H (0.01-0.20) K/uL Sodium 141 (136-145) mmol/L Potassium 3.8 (3.5-5.1) mmol/L Chloride 108 H (98-107) mmol/L Carbon Dioxide 28 (21-32) mmol/L Anion Gap 5 (3-11) BUN 7 (6-23) mg/dl Creatinine 0.93 (0.6-1.4) mg/dl Est Cr Clr Drug Dosing 99.3 ml/min eGFR 102.56 BUN/Creatinine Ratio 7.5 L (10-20) Glucose 100 H (70-99(Fasting)) mg/dl Calcium 8.9 (8.6-10.3) mg/dl Stl C. cayetanensis PCR Not Detected (NotDetected) Stool Rotavirus A PCR Not Detected (NotDetected) Stl Adenov F 40/41 PCR Not Detected (NotDetected) Stool Astrovirus (PCR) Not Detected (NotDetected) Stool Campylobacter PCR Not Detected (NotDetected) Stl C. diff Tox B Gene Negative Cdiff Gene (Neg) Stool Cryptosporidium PCR Not Detected (NotDetected) Stl E.coli Shiga Tox PCR Not Detected (NotDetected) Stl Enterotoxigenic E PCR Not Detected (NotDetected) Stool EPEC (PCR) Not Detected (NotDetected) Stool EAEC (PCR) Not Detected (NotDetected) Stl E. histolytica PCR Not Detected (NotDetected) Stool Giardia Lamblia PCR Not Detected (NotDetected) Stool Salmonella PCR Not Detected (NotDetected) Stool Sapovirus (PCR) Not Detected (NotDetected) Stl P. shigelloides PCR Not Detected (NotDetected) Stl Shigella/EIEC PCR Not Detected (NotDetected) St Y.enterocolitica PCR Not Detected (NotDetected) Stool Vibrio (PCR) Not Detected (NotDetected) Stl Vibrio cholerae PCR Not Detected (NotDetected) Stl Norovirus GI/GII PCR Not Detected (NotDetected) (1) Post-operative infection Encounter type: initial encounter Postoperative infection type: unspecified type Qualified Code(s): T81.40XA - Infection following a procedure, unspecified, initial encounter
--- NOTE | 2024-10-23 13:59 | Discharge Summary ---
Date of Service October 23, 2024 Admission HPI Per Admitting Provider Peter is a 44-year-old male who recently underwent laparoscopic appendectomy on 10/15/24 at [facility] presented to the emergency department with continued lower abdominal pain with pressure along with associated fevers and chills. He was initially transferred from [facility] emergency room to [facility] and requested nonsurgical management of his acute appendicitis however he continued to have increasing pain, increasing leukocytosis and fever which prompted surgical intervention which he was found to have perforated appendicitis with phlegmon changes however no abscess intraoperatively. A ODIN drain was placed and he was kept in the hospital for IV antibiotics and discharged home on Sunday. He states that since he has been home he has have been having intermittent severe abdominal pain along with pressure with bowel movements and fevers and chills. There has been minimal drain output about 10 cc in a 24-hour period. He was not discharged on any pain medication or any oral antibiotics. He states he is he has been taking Tylenol for pain. Was able to have bowel movements no blood in the stools however he does have significant amount of pain and pressure prior to bowel movements. Principal Diagnosis postop pain colitis postoperative fluid collections Discharge Exam Constitutional WD/WN, vitals as above cooperative and comfortable; no acute distress and not ill appearing Respiratory normal respiratory effort; no respiratory distress, no labored breathing and no retractions Gastrointestinal (Abdomen) Inspection/Auscultation: abdomen normal to inspection, + abdominal surgical incision (c/d/i with eric) and + abdominal surgical drain present (serous drainage); abdomen not distended Percussion/Palpation: abdomen soft; abdomen nontender, no guarding, abdomen not rigid and abdomen not firm Skin no rashes, warm and dry Psychiatric Orientation: alert and oriented x 3 Discharge Data Allergies Allergy/AdvReac Type Severity Reaction Status Date / Time No Known Allergies Allergy Unknown Unverified 10/21/24 15:30 Consultations 10/21/24 13:29 Consult General Surgery Stat Ordered Studies 10/21/24 11:26 CT abd pelvis IV con only Stat Hospital Course (1) Post-operative infection: Patient was admitted to the hospital from the emergency department for IV antibiotics pain management antiemetics as needed and initially n.p.o. for bowel rest. IV Zosyn was initiated for the antibiotic IV antibiotics. Throughout patient's hospital stay his diet was advanced to regular diet, pain was controlled with minimal pain medication and leukocytosis resolved by hospital day #1. Patient was discharged home on hospital day number#2 in stable condition with ODIN drain in close follow-up with his surgeon at [facility] on October 27 at 12:30 PM. He was sent home with prescription for oral Augmentin for 7 days. Total Time Total Time Spent Total Time Spent (In Minutes): 20 Total Time Includes: Examination of the Patient, Discharge Planning and Medication Reconciliation Discharge Plan Discharge Items Patient Disposition: Home - Self-Care Reason For Visit: ABDOMINAL PAIN, FEVER Discharge Diagnosis: Colitis Postop pain Condition on Discharge: Fair Activity: Per Instructions section Non-emergency contact: Primary Care Provider and Surgeon Call non-emergency contact if: you have any medication questions, your pain is not controlled, you have a fever, your temperature is above 101, your wound has increased redness, your wound has increased drainage and your wound pain has increased Follow-up/Referrals: Pro,Tj Carl MD [Primary Care Provider] - Manas Goodwin M.D. [Outside Practitioners] - 10/27/24 12:30 pm Diet: Low Fiber Addtl Attending Provider Instructions: Please follow your initial Postoperative surgical instructions regarding lifting restrictions and any other restrictions from Dr. Goodwin Follow-up appointment set up for Sunday10/27/24 at 12:30 at [facility]. You will go home with odin drain. Continue to monitor output and empty as instructed previously. Call office with any changes/concerns regarding drain output (Bleeding, change in color, purulent drainage) Surgical eric and drain will be removed in office. Take oral antibiotics as prescribed for entire course: Augmentin twice a day for 7 days Pending Studies at Discharge: No Stand-Alone Forms: My [employer], Smoking Cessation Medications and DC Order Prescriptions: New amoxicillin-pot clavulanate 875-125 mg tablet 1 tab PO BID Qty: 14 0RF Continued diclofenac sodium [Voltaren Arthritis Pain] 1 % gel 4 g topical QID PRN (Reason: Pain) Rx Instructions: apply to single knee, ankle, foot; for foot includes sole/toes/top of foot vitamin E 268 mg (400 unit) Capsule 268 mg PO DAILY omega 5-xjz-[id number]-fish oil 900-1,400 mg Capsule,Delayed Release(Dr/Ec) 1 cap PO DAILY cinnamon bark [Cinnamon] 500 mg Capsule 500 mg PO DAILY escitalopram oxalate 10 mg tablet 10 mg PO DAILY Rx Instructions: TAKE 1 TABLET BY MOUTH EVERY DAY cholecalciferol (vitamin D3) [Vitamin D3] 25 mcg (1,000 unit) Tablet 25 mcg PO DAILY Discharge Orders: Discharge Order (Routine); Ordered 10/23/24 Ordered By: Dahiana Ho Admission Data Admit Date/Time: 10/21/24 15:28 Attending Provider: Kelvin Capellan Admit Provider: Kelvin Capellan Primary Care Provider: Tj Gibson Other Providers: Kelvin Capellan
== END 2024-10-23 16:29 | disposition home or self-care (01) | DRG 392 ==
LOC: ED 11:17 → 3N 15:28